=== PATIENT | male | born 1935 | race Caucasian/White ===

== ENCOUNTER 2018-05-11 09:01 | Observation (INO) | payer OTHER ==
[~2018-05-11] VITALS: Ht 172.7 cm; Wt 76.9 kg
[~2018-05-11 09:01] MED LIST: ADVAIR 500/501 EA INH; ATORVASTATIN CA20 MG PO; CICLOPIROX30 GM PO; CLOPIDOGREL75 MG PO; DOXYCYCLINE MO100 M1 PO; DUONEB; FUROSEMIDE20 MG PO; LISINOPRIL10 MG PO; NIFEDIPINE PO; PROAIR HFA INH8.5 GM; TESSALON PERLE100 MG PO
[2018-05-11] MEDS ORDERED: METHYLPREDNISOLONE SOD SUCC 125 MG/2ML VIAL IV STA (10:20)
[2018-05-11] MEDS ORDERED: FAMOTIDINE 20 MG/2 ML VIAL IV STA (10:20)
[2018-05-11 10:28] LABS: BASOPHILS # (AUTO) 0.1 (0.0-0.1); BASOPHILS % 0.5 % (0.0-1.0); EOSINOPHILS # (AUTO) 0.2 (0.0-0.4); EOSINOPHILS % 1.4 % (0.0-6.0); HEMATOCRIT 39.7 % (38.2-49.6); HEMOGLOBIN 13.2 g/dL (14.0-18.0); LYMPHOCYTES # (AUTO) 1.4 (1.0-3.2); LYMPHOCYTES % 13.1 % (18.0-39.1); MEAN CORPUSCULAR HEMOGLOBIN 31.5 pg (28-32); MEAN CORPUSCULAR HGB CONC 33.2 g/dL (31-35); MEAN CORPUSCULAR VOLUME 94.7 fL (81-99); MONOCYTES # (AUTO) 0.7 (0.2-0.8); MONOCYTES % 6.3 % (4.4-11.3); NEUTROPHILS # (AUTO) 8.4 (2.1-6.9); NEUTROPHILS % 76.4 % (38.7-80.0); PLATELET COUNT 302 x10e3/uL (140-360); RED BLOOD COUNT 4.19 x10e6/uL (4.3-5.7)
[2018-05-11] MEDS ORDERED: DIPHENHYDRAMINE HCL INJ 50 MG/ML VIAL IV ONE (10:30)
[2018-05-11 11:08] LABS: ALBUMIN 3.4 g/dL (3.5-5.0); ALBUMIN/GLOBULIN RATIO 0.9 (0.8-2.0); ANION GAP 16.2 mmol/L (8-16); CALCIUM 9.8 mg/dL (8.4-10.2); CREATININE, SERUM 1.53 mg/dL (0.72-1.25); POTASSIUM 4.2 mmol/L (3.5-5.1)
--- NOTE | 2018-05-11 11:43 | Diagnostic Imaging Report ---
EXAMINATION: PA and lateral views of the chest. COMPARISON: Chest CT 05/03/2018 CLINICAL HISTORY: Follow-up right lower lobe pneumonia DISCUSSION: Lines/tubes: None. Lungs: Lungs are well inflated. Increased lucency in the upper lungs, consistent with edematous changes. Coarsening of the interstitium, predominantly noted in the lower lungs and lateral right upper lung, consistent with previously visualized fibrotic changes. No consolidation. Pleura: There is no pleural effusion or pneumothorax. Heart and mediastinum: Cardiomediastinal silhouette is unremarkable. Pulmonary vasculature is normal. Bones and soft tissues: No acute bony abnormalities. Degenerative changes in the thoracic spine IMPRESSION: No consolidation or effusion. Stable emphysematous and fibrotic changes. Signed by: Dr. Jeremias Hagan M.D. on 05/11/2018 11:40 AM
[2018-05-11] MEDS ORDERED: ONDANSETRON HCL INJ 2 MG/ML VIAL IV PRN (12:00)
[2018-05-11] MEDS ORDERED: DIPHENHYDRAMINE HCL INJ 50 MG/ML VIAL IV PRN (12:00)
[2018-05-11] MEDS ORDERED: ALBUTEROL/IPRATROPIUM 3 ML NEB NEB PRN (13:30)
[2018-05-11] MEDS ORDERED: BENZONATATE 100 MG CAP PO PRN (13:30)
[2018-05-11 14:09] VITALS: BP 143/74
[2018-05-11] MEDS: SODIUM CHLORIDE 0.9% 1000ML 1,000 ML IV SCH (14:28)
[2018-05-11] MEDS: METHYLPREDNISOLONE SOD SUCC 125 MG/2ML VIAL IV SCH ×2 (14:32→21:54)
[2018-05-11 14:36] VITALS: BP 143/74
[2018-05-11 14:44] VITALS: BP 143/74
[2018-05-11] MEDS: NYSTATIN SUSPENSION 5 ML UDC PO SCH ×2 (15:15→21:54)
[2018-05-11 16:46] VITALS: BP 179/81
[2018-05-11] MEDS: FAMOTIDINE 20 MG/2 ML VIAL IV SCH (17:10)
[2018-05-11] MEDS: PANTOPRAZOLE 40 MG 10ML VIAL IV SCH (17:10)
--- NOTE | 2018-05-11 17:23 | Diagnostic Imaging Report ---
EXAMINATION: CT scan of the chest without contrast. TECHNIQUE: Spiral CT images of the chest were performed from the lung apices to the level of the adrenal glands. No intravenous contrast was administered per physician's request. Coronal and sagittal reformatted images were obtained. COMPARISON: CT chest 03/02 CLINICAL HISTORY:Shortness of breath, pneumonia DISCUSSION: ABSENCE OF INTRAVENOUS CONTRAST DECREASES SENSITIVITY FOR DETECTION OF FOCAL LESIONS AND VASCULAR PATHOLOGY. LINES/TUBES: None. LUNGS AND AIRWAYS: No interval change in marked bilateral centrilobular and paraseptal emphysematous changes, as well as bilateral cystic changes. Unchanged bilateral subpleural reticulation, architectural distortion and septal thickening, consistent with fibrotic changes. Stable mild central bilateral ectatic changes. Slight improvement in bilateral lower lobe groundglass opacities. No consolidation or pulmonary masses. The airways are clear, without endobronchial lesions. PLEURA: Trace left pleural effusion, which is stable. Interval resolution of previously visualized trace right pleural effusion. HEART AND MEDIASTINUM: Stable 1.4 cm hypodense lesion in the left thyroid lobe (series 2, image 16). Bilateral enlargement. Trace pericardial effusion. Atherosclerotic calcification of the coronary arteries, aortic valves and thoracic aorta. Main pulmonary artery is normal in caliber. LYMPH NODES: No mediastinal, hilar or axillary adenopathy. ABDOMEN: Limited unenhanced views of the upper abdomen show no abnormality within the visualized liver, spleen, pancreas, or kidneys. The right adrenal gland is unremarkable. Thickening of the left adrenal gland, without discrete focal lesions suggesting hyperplasia. BONES AND SOFT TISSUES: Multilevel degenerative disc changes in the thoracic spine. IMPRESSION: 1. No significant interval change in marked bilateral centrilobular emphysematous and paraseptal emphysematous changes. Stable bilateral cystic changes, likely secondary to emphysema. 2. Slight improvement in bilateral lower lobe groundglass opacities. No consolidation or pulmonary masses. 3. Stable trace left pleural effusion. Interval resolution of previously visualized trace right pleural effusion. 4. Stable cardiomegaly Signed by: Dr. Jeremias Hagan M.D. on 05/11/2018 5:19 PM
[2018-05-11 19:00] VITALS: BP 144/79
[2018-05-11 20:00] VITALS: BP 144/79
[2018-05-11] MEDS: ALBUTEROL/IPRATROPIUM 3 ML NEB NEB SCH (20:03)
[2018-05-12 00:40] VITALS: BP 139/82
[2018-05-12] MEDS: ALBUTEROL/IPRATROPIUM 3 ML NEB NEB SCH ×3 (01:40→13:00)
[2018-05-12] MEDS: SODIUM CHLORIDE 0.9% 1000ML 1,000 ML IV SCH (01:52)
[2018-05-12 03:10] VITALS: BP 138/74
[2018-05-12 05:14] LABS: BASOPHILS % 0.2 % (0.0-1.0); HEMATOCRIT 37.8 % (38.2-49.6); HEMOGLOBIN 12.6 g/dL (14.0-18.0); LYMPHOCYTES # (AUTO) 0.9 (1.0-3.2); LYMPHOCYTES % 9.6 % (18.0-39.1); MEAN CORPUSCULAR HEMOGLOBIN 31.5 pg (28-32); MEAN CORPUSCULAR HGB CONC 33.3 g/dL (31-35); MEAN CORPUSCULAR VOLUME 94.5 fL (81-99); MONOCYTES # (AUTO) 0.2 (0.2-0.8); MONOCYTES % 1.9 % (4.4-11.3); NEUTROPHILS # (AUTO) 8.3 (2.1-6.9); NEUTROPHILS % 86.8 % (38.7-80.0); PLATELET COUNT 276 x10e3/uL (140-360); RED CELL DISTRIBUTION WIDTH 13.2 % (11.7-14.4)
[2018-05-12 05:31] LABS: ANION GAP 15.4 mmol/L (8-16); CALCIUM 9.1 mg/dL (8.4-10.2); CREATININE, SERUM 1.33 mg/dL (0.72-1.25); POTASSIUM 4.4 mmol/L (3.5-5.1)
[2018-05-12] MEDS: NYSTATIN SUSPENSION 5 ML UDC PO SCH ×2 (05:59→15:00)
[2018-05-12] MEDS: METHYLPREDNISOLONE SOD SUCC 125 MG/2ML VIAL IV SCH ×2 (05:59→15:00)
[2018-05-12 08:11] VITALS: BP 157/72
[2018-05-12 08:31] VITALS: BP 157/72
[2018-05-12] MEDS: FAMOTIDINE 20 MG/2 ML VIAL IV SCH ×2 (09:00→16:19)
[2018-05-12] MEDS: PANTOPRAZOLE 40 MG 10ML VIAL IV SCH ×2 (09:00→16:19)
[2018-05-12] MEDS ORDERED: BENZONATATE 100 MG CAP PO PRN (11:00)
[2018-05-12] MEDS ORDERED: DUONEB PRN (11:00)
[2018-05-12 11:15] VITALS: BP 143/65
--- NOTE | 2018-05-12 14:35 | Operative Report ---
DATE OF PROCEDURE: May 12, 2018 PROCEDURE PERFORMED: Esophagogastroduodenoscopy with esophageal dilatation. INDICATIONS FOR EGD: Dysphagia to solids. MEDICATION: Patient was done under MAC. Please see anesthesiologist's note. PROCEDURE: With the patient in the left lateral decubitus position, the flexible fiberoptic Olympus gastroscope was introduced into the esophagus under direct visualization without any difficulty. There was some patchy erythema noted in the distal esophagus. An esophageal stricture was noted at the GE junction, and that was traversed with ease with the scope after dilating the stricture to size 54-Bruneian Frank. There was a small fixed hiatal hernia. The mucosa overlying the antrum and the body revealed some diffuse erythema and moderate edema, and biopsies were obtained and sent to stain for H. pylori. Pylorus appeared to be of normal contour and shape. It was intubated with ease. The scope was advanced all the way to the 2nd portion of the duodenum. The scope was then withdrawn slowly. Mucosa overlying the proximal 2nd portion and duodenal bulb grossly appeared to be within normal limits. The scope was then withdrawn back retroflexed. Mucosa overlying the fundus appeared to be within normal limits. The previously described hiatal hernia was also noted in the retroflexed position. The scope was then straightened out. It was subsequently withdrawn. Patient tolerated the procedure well. IMPRESSION 1. Distal esophagitis, mild. 2. Esophageal stricture at gastroesophageal junction dilated to size 54-Bruneian Frank. 3. Small hiatal hernia. 4. Gastritis, biopsied. Biopsies sent to stain for Helicobacter pylori. PLAN: Follow up histology. Continue PPI therapy. Start GI soft diet. Job#: [id number] RI cc:MD MT BARKLEY MD
[2018-05-12] MEDS ORDERED: LIDOCAINE HCL 2% LOCAL INJ 5 ML SDV VIAL INJ ONE (15:14)
[2018-05-12] MEDS ORDERED: KETAMINE HCL INJ 50 MG/ML 10 ML VIAL ONE (15:14)
[2018-05-12] MEDS ORDERED: PROPOFOL IV EMULSION 10 MG/ML 20 ML VIAL ONE (15:14)
[2018-05-12 15:44] VITALS: BP 139/65
[2018-05-12] MEDS ORDERED: PREDNISONE5 MG PO (17:58)
[2018-05-12] MEDS ORDERED: PEPCID20 MG PO (17:58)
[2018-05-12] MEDS ORDERED: VENTOLIN HFA18 GM (17:59)
[2018-05-12] MEDS ORDERED: SALMETEROL/FLUTICASONE 500/50 INH SCH (19:00)
[2018-05-13] MEDS ORDERED: ATORVASTATIN 20 MG TAB PO SCH (09:00)
[2018-05-13] MEDS ORDERED: CLOPIDOGREL BISULFATE 75 MG TAB PO SCH (09:00)
[2018-05-13] MEDS ORDERED: FUROSEMIDE 20 MG TAB PO SCH (09:00)
[2018-05-13] MEDS ORDERED: NIFEDIPINE CR 30 MG TAB PO SCH (09:00)
== END 2018-05-12 18:29 | disposition home or self-care (01) ==
LOC: ER 09:01 → ERHOLD 12:23 → IMCU 14:01
PROVIDERS: ADMIT Internal Medicine; ATTEND Internal Medicine
DX: K22.2 Esophageal obstruction (principal); T78.3XXA Angioneurotic edema, initial encounter; R13.14 Dysphagia, pharyngoesophageal phase; J44.9 Chronic obstructive pulmonary disease, unspecified; I10 Essential (primary) hypertension; E78.5 Hyperlipidemia, unspecified; Z87.891 Personal history of nicotine dependence; Z99.81 Dependence on supplemental oxygen; I69.354 Hemiplegia and hemiparesis following cerebral infarction affecting left non-dominant side; K21.0 Gastro-esophageal reflux disease with esophagitis; K44.9 Diaphragmatic hernia without obstruction or gangrene; K29.70 Gastritis, unspecified, without bleeding
CPT/HCPCS: 36415 ×2; 43239; 43249; 71046; 71250; 80048; 80053; 85025 ×2; 88305; 94640 ×3; 99284; G0378 ×2; J1200; J2001; J2930 ×2; J7030 ×2; 43450; 88312

== ENCOUNTER → 2018-08-02 | Outpatient (CLI) | payer OTHER ==
[~2018-08-02] MED LIST changes: +PEPCID20 MG PO; +PREDNISONE5 MG PO; +VENTOLIN HFA18 GM
--- NOTE | 2018-08-02 10:03 | Diagnostic Imaging Report ---
PROCEDURE: X-RAY CHEST, TWO VIEWS COMPARISON: 2 view chest 05/11/2018, CT chest without contrast 05/11/2018. INDICATIONS: COPD FINDINGS: Advanced upper lobe predominant emphysematous changes are again noted seen to better advantage on comparison CT. Scattered foci of fibrosis in the periphery of the right upper lobe and bilateral lower lobes are grossly unchanged . No superimposed airspace consolidation. No pleural effusion or pneumothorax. Stable cardiomediastinal contour with tortuosity and atherosclerotic calcification of the thoracic aorta. Normal heart size and pulmonary vasculature. Regional skeletal structures are grossly intact. CONCLUSION: No acute cardiopulmonary abnormality. Stable findings of COPD with superimposed fibrosis. Dictated by: Ashwin Kang M.D. on 08/02/2018 at 10:13 Electronically approved by: Ashwin Kang M.D. on 08/02/2018 at 10:13
--- NOTE | 2018-08-18 16:09 | History and Physical ---
CHIEF COMPLAINT: Fever, altered mental status, pneumonia. HISTORY: The patient is a pleasant 82-year-old male who came to the hospital with hypoxia. The patient is complaining of increasing difficulty breathing and wheezing. Patient was confused. He also had fever as well. According to his daughter, temperature was up to 102 to 103. Patient was admitted for treatment. PAST MEDICAL HISTORY: Including hypertension, history of skin cancer removed, carotid endarterectomy. SOCIAL HISTORY: Patient does not smoke or use alcohol. No illegal drugs. ALLERGIES: NO KNOWN ALLERGY. HOME MEDICATIONS: List is reviewed. REVIEW OF SYSTEMS: Unable to obtain. Patient is confused. PHYSICAL EXAMINATION VITAL SIGNS: Temperature is 101, blood pressure 110/62, pulse rate 80, respirations 18. GENERAL: The patient is not in acute distress. He is awake. HEENT: Normocephalic, atraumatic, anicteric. NECK: Supple grossly. PULMONARY: Diminished breath sounds bilaterally with coarseness. CARDIOVASCULAR: Tachycardia. ABDOMEN: Soft and unremarkable. EXTREMITIES: No cyanosis or edema. NEUROLOGIC: Confusion. LABORATORY: Sodium is 138, potassium 3.6, chloride 110, BUN 20, creatinine 1.3, glucose was 106. WBC is 21,000. IMPRESSION 1. Altered mental status. 2. Acute exacerbation of chronic obstructive pulmonary disease. 3. Cellulitis of the upper extremity, resolved. 4. Chronic debility. 5. Emphysema and fever. PLAN: Continue with IV antibiotics. Consultation with Dr. Salas and Dr. Mann. Resume some home medications. Check lab workup. We will monitor the patient closely on admission. Job#: [id number]
== END ==
LOC: RAD 09:37
PROVIDERS: ATTEND Internal Medicine Pulmonary Disease
DX: J44.9 Chronic obstructive pulmonary disease, unspecified (principal)
CPT/HCPCS: 71046

== ENCOUNTER 2019-01-12 10:09 | Observation (INO) | payer OTHER ==
--- NOTE | 2019-01-11 19:30 | NUR ---
Walking rounds done. Patient resting in bed, A&Ox4, respirations even & unlabored, no distress noted. Patient states he ambulates with walker, instructed to call for assistance when needing to get out of bed, call light within reach. Tele box in place. IV fluids running @ 100cc/hr. Reminded patient he is on clear liquid diet and needs to be NPO after midnight for scheduled procedure tomorrow, patient voices understanding.
[~2019-01-12] VITALS: Ht 172.7 cm; Wt 82.6 kg
[~2019-01-12 10:09] MED LIST changes: -VENTOLIN HFA18 GM; +VENTOLIN HFA18 GM INH
--- OUTSIDE RECORDS SUMMARY | 2019-01-12 10:11 | XMS REPORT ---
Author Author [facility] Address Unknown Phone Unavailable Care Team Providers Care Dental Floss Packer Name Role Phone VINCENT ASTUDILLO Unavailable Unavailable BAL RANKIN Unavailable Unavailable Problems This patient has no known problems. Allergies, Adverse Reactions, Alerts This patient has no known allergies or adverse reactions. Medications This patient has no known medications. Results Test Description Test Time Test Comments Text Results Atomic Results Result Comments CHEST 2 VIEWS 2018-08-02 10:13:00 [place] [address] Patient Name: DEMOND ORTIZ MR #: [id number] : 1935 Age/Sex: 83/M Req #: [id number] Adm Physician: Ordered by: VINCENT ASTUDILLO MD Report #: [id number] Location: RAD Room/Bed: Procedure: [id number] DX/CHEST 2 VIEWS Exam Date: Exam Time: REPORT STATUS: Signed PROCEDURE: X-RAY CHEST, TWO VIEWS COMPARISON: 2 view chest 05/11/2018, CT chest without contrast 05/11/2018. INDICATIONS: COPD FINDINGS: Advanced upper lobe predominant emphysematous changes are again noted seen to better advantage on comparison CT. Scattered foci of fibrosis in the periphery of the right upper lobe and bilateral lower lobes are grossly unchanged . No superimposed airspace consolidation. No pleural effusion or pneumothorax. Stable cardiomediastinal contour with tortuosity and atherosclerotic calcification of the thoracic aorta. Normal heart size and pulmonary vasculature. Regional skeletal structures are grossly intact. CONCLUSION: No acute cardiopulmonary abnormality. Stable findings of COPD with superimposed fibrosis. Dictated by: Kyle Smith M.D. on 08/02/2018 at 10:13 Electronically approved by: Kyle Smith M.D. on 08/02/2018 at 10:13 Dictated By: KYLE SMITH MD 1013 Transcribed By: JABARI on 08/02/18 1013 COPY TO: VINCENT ASTUDILLO MD CT CHEST WO 2018-05-11 17:12:00 [place] [address] Patient Name: DEMOND ORTIZ MR #: [id number] : 1935 Age/Sex: 82/M Req #: [id number] Adm Physician: BAL RANKIN MD Ordered by: BAL RANKIN MD Report #: [id number] Location: [facility] Room/Bed: [place] [address] Procedure: [id number] CT/CT CHEST WO Exam Date: 05/11/18 Exam Time: 1558 REPORT STATUS: Signed EXAMINATION: CT scan of the chest without contrast. TECHNIQUE: Spiral CT images of the chest were performed from the lung apices to the level of the adrenal glands. No intravenous contrast was administered per physician's request. Coronal and sagittal reformatted images were obtained. COMPARISON: CT chest 03/02 CLINICAL HISTORY:Shortness of breath, pneumonia DISCUSSION: ABSENCE OF INTRAVENOUS CONTRAST DECREASES SENSITIVITY FOR DETECTION OF FOCAL LESIONS AND VASCULAR PATHOLOGY. LINES/TUBES: None. LUNGS AND AIRWAYS: No interval change in marked bilateral centrilobular and paraseptal emphysematous changes, as well as bilateral cystic changes. Unchanged bilateral subpleural reticulation, architectural distortion and septal thickening, consistent with fibrotic changes. Stable mild central bilateral ectatic changes. Slight improvement in bilateral lower lobe groundglass opacities. No consolidation or pulmonary masses. The airways are clear, without endobronchial lesions. PLEURA: Trace left pleural effusion, which is stable. Interval resolution of previously visualized trace right pleural effusion. HEART AND MEDIASTINUM: Stable 1.4 cm hypodense lesion in the left thyroid lobe (series 2, image 16). Bilateral enlargement. Trace pericardial effusion. Atherosclerotic calcification of the coronary arteries, aortic valves and thoracic aorta. Main pulmonary artery is normal in caliber. LYMPH NODES: No mediastinal, hilar or axillary adenopathy. ABDOMEN: Limited unenhanced views of the upper abdomen show no abnormality within the visualized liver, spleen, pancreas, or kidneys. The right adrenal gland is unremarkable. Thickening of the left adrenal gland, without discrete focal lesions suggesting hyperplasia. BONES AND SOFT TISSUES: Multilevel degenerative disc changes in the thoracic spine. IMPRESSION: 1. No significant interval change in marked bilateral centrilobular emphysematous and paraseptal emphysematous changes. Stable bilateral cystic changes, likely secondary to emphysema. 2. Slight improvement in bilateral lower lobe groundglass opacities. No consolidation or pulmonary masses. 3. Stable trace left pleural effusion. Interval resolution of previously visualized trace right pleural effusion. 4. Stable cardiomegaly Signed by: Dr. Jeremias Hagan M.D. on 05/11/2018 5:19 PM Dictated By: JEREMIAS HAGAN MD 18 Transcribed By: LUCI on 05/11/181718 COPY TO: BAL RANKIN MD CHEST 2 VIEWS 2018-05-11 11:36:00 [place] [address] Patient Name: DEMOND ORTIZ MR #: [id number] : 1935 Age/Sex: 82/M Req #: [id number] Adm Physician: Ordered by: TIMUR MORENO MD Report #: [id number] Location: ER Room/Bed: Procedure: [id number] DX/CHEST 2 VIEWS Exam Date: 05/11/18 Exam Time: 1053 REPORT STATUS: Signed EXAMINATION: PA and lateral views of the chest. COMPARISON: Chest CT 05/03/2018 CLINICAL HISTORY: Follow-up right lower lobe pneumonia DISCUSSION: Lines/tubes: None. Lungs: Lungs are well inflated. Increased lucency in the upper lungs, consistent with edematous changes. Coarsening of the interstitium, predominantly noted in the lower lungs and lateral right upper lung, consistent with previously visualized fibrotic changes. No consolidation. Pleura: There is no pleural effusion or pneumothorax. Heart and mediastinum: Cardiomediastinal silhouette is unremarkable. Pulmonary vasculature is normal. Bones and soft tissues: No acute bony abnormalities. Degenerative changes in the thoracic spine IMPRESSION: No consolidation or effusion. Stable emphysematous and fibrotic changes. Signed by: Dr. Jeremias Hagan M.D. on 05/11/2018 11:40 AM Dictated By: JEREMIAS HAGAN MD 1140 Transcribed By: LUCI on 05/11/18 1140 COPY TO: TIMUR MORENO MD US EXTREMITY CABAN NON-VAS 2018-05-04 14:22:00 [place] [address] Patient Name: DEMOND ORTIZ MR #: [id number] : 1935 Age/Sex: 82/M Req #: [id number] Adm Physician: BAL RANKIN MD Ordered by: FABIANA RANDHAWA MD Report #: [id number] Location: MED/SURG2 Room/Bed: [facility] Procedure: US/US EXTREMITY CABAN NON-VAS Exam Date: 05/04/18 Exam Time: 1228 REPORT STATUS: Signed EXAM: US EXTREMITY CABAN NON-VAS INDICATION: COMPARISON: None TECHNIQUE: Transverse and sagittal images were performed of the right elbow soft tissues. FINDINGS: Extensive soft tissue edema surrounding the right elbow in the region of pain with mildly increased vascularity. No abscess. IMPRESSION: Extensive soft tissue edema surrounding the right elbow. Mild increased vascularity may relate to cellulitis. Correlate with physical exam. No abscess. Signed by: Dr. Milka Rodriguez M.D. on 05/04/2018 2:24 PM Dictated By: MILKA RODRIGUEZ MD 1424 Transcribed By: LUCI on 05/04/18 1424 COPY TO: FABIANA RANDHAWA MD CT CHEST WO 2018-05-03 18:51:00 [place] [address] Patient Name: DEMOND ORTIZ MR #: [id number] : 1935 Age/Sex: 82/M Req #: [id number] [facility] Physician: BAL RANKIN MD Ordered by: BAL RANKIN MD Report #: [id number] Location: MED/SURG2 Room/Bed: [facility] Procedure: [id number] CT/CT CHEST WO Exam Date: 05/03/18 Exam Time: 1821 REPORT STATUS: Signed EXAM: CT Chest WITHOUT contrast 05/03/2018 5:01 PM INDICATION: COMPARISON: Chest radiograph 05/03/2018 and 05/01/2018 TECHNIQUE: Chest was scanned utilizing a multidetector helical scanner from the lung apex through the level of the adrenal glands without administration of IV contrast. Absence of intravenous contrast decreases sensitivity for detection of lymphadenopathy and vascular pathology. Coronal and sagittal reformations were obtained. Routine protocol was performed. IV CONTRAST: None COMPLICATIONS: None RADIATION DOSE: Total DLP: 540.5 mGy*cm Estimated effective dose: (DLP x 0.015 x size factor) mSv CTDIvol has been reviewed. It is below the limits set by the Radiation Protocol Committee (RPC). FINDINGS: LINES/ TUBES: None. LUNGS AND AIRWAYS: Advanced bilateral centrilobular and paraseptal emphysema with multiple cystic changes. Diffuse subpleural reticulation of the lungs with septal thickening and architectural distortion consistent with nonspecific pattern of pulmonary fibrosis. No consolidations or suspicious pulmonary nodules. Mild central bilateral bronchiectasis. Mild groundglass opacities in both lung bases. PLEURA: Small bilateral low-attenuation pleural effusions with fluid tracking into the fissures. No pneumothorax. HEART AND MEDIASTINUM: Heterogeneous appearance of the thyroid gland may be due to small nodules. Multiple subcentimeter noncalcified lymph nodes with the largest in the AP window measuring 0.8 cm on series 2, image 46. Biatrial enlargement. Trace pericardial effusion. Diffuse coronary artery calcifications. The thoracic aorta is normal in caliber and associated with severe atherosclerotic calcifications. There is a double contour of the descending thoracic aorta better seen on series 2, image 89 which may represent due to complex plaque with calcification of the intima versus chronic dissection. Small hiatal hernia. The main pulmonary artery normal in caliber. The right and left pulmonary arteries are prominent. UPPER ABDOMEN: Unremarkable. BONES: Mild multilevel degenerative changes of the thoracic spine. SOFT TISSUES: Unremarkable. IMPRESSION: 1. Extensive bilateral emphysema with multiple cystic changes. These cysts may relate to emphysema or superimposed Langerhans cell histiocytosis. 2. Bilateral nonspecific pattern of pulmonary fibrosis. 3. No lobar consolidations or centrilobular nodules to suggest active infection. 4. Extensive calcifications of the thoracic aorta with complex plaque versus chronic dissection in the descending thoracic segment. Recommend nonemergent CTA chest for further evaluation. Signed by: Dr. Milka Rodriguez M.D. on 05/03/2018 7:09 PM Dictated By: MILKA RODRIGUEZ MD 08 Transcribed By: LUCI on 05/03/181908 COPY TO: BAL RANKIN MD CHEST SINGLE (PORTABLE) 2018-05-03 08:07:00 [place] [address] Patient Name: DEMOND ORTIZ MR #: [id number] : 1935 Age/Sex: 82/M Req #: [id number] Adm Physician: BAL RANKIN MD Ordered by: TIMUR MOERNO MD Report #: [id number] Location: [facility] Room/Bed: [facility] Procedure: [id number] DX/CHEST SINGLE (PORTABLE) Exam Date: 05/03/18 Exam Time: 0650 REPORT STATUS: Signed EXAMINATION: CHEST SINGLE (PORTABLE) INDICATION: Fever. Pneumonia. COMPARISON: May 01, 2018 FINDINGS: LINES/TUBES: None LUNGS: Peripheral interstitial thickening with more focal reticulonodular changes in the right upper lung. PLEURA: No effusions or pneumothorax. HEART AND MEDIASTINUM: Normal size and contour. BONES AND SOFT TISSUES: No acute findings. IMPRESSION: Essentially no change when compared with the prior exam. Peripheral interstitial thickening suggests interstitial lung disease or emphysematous changes with age related changes. More focal reticulonodular changes in the right upper lung could represent superimposed infection. Please correlate with patient's symptoms. Signed by: Dr. Anabella Yu M.D. on 05/03/2018 8:08 AM Dictated By: ANABELLA YU MD, MD 7 Transcribed By: LUCI on 05/03/18807 COPY TO: TIMUR MORENO MD CHEST 2 VIEWS 2018-05-01 21:30:00 [facility] [address] [place] [address] Patient Name: DEMOND ORTIZ MR #: [id number] : 1935 Age/Sex: 82/M Req #: [id number] Adm Physician: Ordered by: TIMUR MORENO MD Report #: [id number] Location: ER Room/Bed: Procedure: [id number] DX/CHEST 2 VIEWS Exam Date: 05/01/18 Exam Time: 2100 REPORT STATUS: Signed EXAM: CHEST 2 VIEWS, PA and lateral INDICATION: Fever COMPARISON: None FINDINGS: LINES/TUBES: None LUNGS: Peripheral interstitial thickening with more focal reticulonodular changes in the right upper lung. PLEURA: No effusions or pneumothorax. HEART AND MEDIASTINUM: Normal size and contour. BONES AND SOFT TISSUES: No acute findings. IMPRESSION: Peripheral interstitial thickening suggests interstitial lung disease or emphysematous changes with age related changes. More focal reticulonodular changes in the right upper lung could represent superimposed infection. Please correlate with patient's symptoms. Signed by: Dr. Zandra Becerril M.D. on 05/01/2018 9:32 PM Dictated By: ZANDRA BECERRIL MD 31 Transcribed By: LUCI on 05/01/182131 COPY TO: TIMUR MORENO MD CT BRAIN WO 2018-05-01 21:26:00 [facility] [address] [place] [address] Patient Name: DEMOND ORTIZ MR #: [id number] : 1935 Age/Sex: 82/M [facility] #: [id number] Req #: [id number] [facility] Physician: Ordered by: TIMUR MORENO MD Report #: [id number] Location: ER Room/Bed: Procedure: [id number] CT/CT BRAIN WO Exam Date: 05/01/18 Exam Time: 2100 REPORT STATUS: Signed EXAMINATION: Head CT without contrast. HISTORY:Confusion. COMPARISON:None. TECHNIQUE: Multidetector axial images were obtained from the foramen magnum to the vertex without contrast. The images were reconstructed using brain and bone algorithms. Thin section brain images were reformatted into coronal and sagittal planes. Dose modulation, iterative reconstruction, and/or weight based adjustment of the mA/kV was utilized to reduce the radiation dose to as low as reasonably achievable. Intravenous contrast: None IMAGE QUALITY: Acceptable. FINDINGS: Skull/scalp: No lytic or blastic. lesions. No surgical changes. Parenchyma: Cortical- based hypodensity in right precentral gyrus with regional volume loss represents chronic encephalomalacia from prior vascular insult. Nonspecific bilateral frontoparietal patchy white matter hypodensity are likely related to small vessel ischemic changes. Age indeterminate possible chronic lacunar infarct in bilateral caudate head and left subinsular region. No acute hemorrhage or mass. Arteries: Atherosclerotic calcification in bilateral carotid siphon. Dural sinuses: No abnormal density suggestive of thrombosis. Ventricles: No hydrocephalus or displacement. Extra- axial spaces: No abnormal density. Brain volume: Generalized age-related cerebral volume loss. Craniocervical junction: No mass, Chiari mal formation, or basilar invagination. Sella: No mass. Paranasal/mastoid sinuses: Imaged portions unremarkable. IMPRESSION: 1. No acute intracranial abnormality, particularly no acute hemorrhage or acute major vascular territorial infarct. 2. 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 Age indeterminate possible chronic lacunar infarct in bilateral caudate head and left subinsular region. 3. Mild supratentorial white matter microvascular ischemic changes. 4. Generalized age-related cerebral volume loss. Signed by: Dr. Aster Arthur M.D. on 05/01/2018 9:31 PM Dictated By: ASTER ARTHUR MD 30 Transcribed By: LUCI on 05/01/182130 COPY TO: TIMUR MORENO MD
--- OUTSIDE RECORDS SUMMARY | 2019-01-12 10:12 | XMS REPORT ---
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 Active Not available atorvastatin 20 mg tablet Active Not available Boostrix Tdap 2.5 Lf unit-8 mcg-5 Lf/0.5 mL intramuscular syringe Completed 08/10/2017 ciclopirox 0.77 % topical gel Active Not available clopidogrel 75 mg tablet Active Not available furosemide 20 mg tablet Completed 08/23/2017 furosemide 40 mg tablet Completed 08/13/2017 Klor-Con Sprinkle 10 mEq capsule,extended release Completed 02/09/2017 lisinopril 10 mg tablet Active Not available lisinopril 5 mg tablet Completed 08/23/2017 Men 50 Plus Multivitamin TAKE 1 A DAY Active Not available permethrin 5 % topical cream Completed 08/10/2017 V-R Tvuxkwa-Pacvvbabp-Fizl 1000 mg-400 mg-15 mg tablet Take 1 tablet every day by oral route for 90 days. Active Not available Vitamin C 1,000 mg tablet Take 1 tablet every day by oral route for 90 days. Active Not available Vitamin D3 2,000 unit capsule Take 1 capsule every day by oral route for 90 days. Active Not available Zostavax (PF) 19,400 unit/0.65 mL subcutaneous suspension Completed 12/05/2017 Problems Name Status Onset Date Source Type 2 Diabetes Mellitus without Complication Unknown 05/11/2017 Diabetic Complication Active 05/11/2017 Mixed Hyperlipidemia Active 05/11/2017 Hyperlipidemia Unknown 05/11/2017 Benign Essential Hypertension Unknown 05/11/2017 Benign Hypertensive Renal Disease Unknown 05/11/2017 Hypertensive Renal Disease Active 05/11/2017 Chronic Kidney Disease Stage 3 Active 05/11/2017 Chronic Kidney Disease Due to Type 2 Diabetes Mellitus Active 05/11/2017 Onychomycosis of Toenails Unknown 08/10/2017 Type 2 Diabetes Mellitus Active 08/10/2017 Peripheral Circulatory Disorder Associated with Type 2 Diabetes Mellitus Active 08/10/2017 Carotid Artery Occlusion Unknown 08/10/2017 Carotid Artery Occlusion Active 08/10/2017 Peripheral Venous Insufficiency Active 08/10/2017 Foot Callus Active 08/10/2017 Peripheral Edema Active 08/10/2017 History of Malignant Melanoma Active 08/10/2017 History of Cerebrovascular Accident Active 08/10/2017 History of Cerebrovascular Accident with Residual Deficit Active 08/10/2017 Hyperkalemia Active 08/13/2017 Allergic Rhinitis Unknown 08/23/2017 History of Angioplasty of Carotid Artery Active 08/23/2017 Procedures Date Name Performed by Hernia Repair Information not available Tonsillectomy Information not available 08/10/2017 US, Duplex, Carotid Artery [facility] (US Imaging) [address] [place] [address] (Work Place) Lab Results Date Name Specimen Result Interpretation Description Value Range Status Address 09/20/2017 CMP, Serum or Plasma Normal Glucose 98 mg/dL 65-99 mg/dL Final [facility] Laboratory: [address] High Urea Nitrogen (BUN) 34 mg/dL 7-25 mg/dL Final [facility] Laboratory: [address] High Creatinine 1.70 mg/dL 0.70-1.11 mg/dL Final [facility] Laboratory: [address] Low eGFR Non-afr. Wallisian 36 mL/min/1.73m2 > or=60 mL/min/1.73m2 Final [facility] Laboratory: [address] Low eGFR 42 mL/min/1.73m2 > or=60 mL/min/1.73m2 Final [facility] Laboratory: [address] Normal BUN/creatinine Ratio 20 (calc) 6-22 (calc) Final [facility]: [address] Normal Sodium 139 mmol/L 135-146 mmol/L Final [facility]: [address] Normal Potassium 4.7 mmol/L 3.5-5.3 mmol/L Final [facility]: [address] [place] [address] Normal Chloride 104 mmol/L 98-110 mmol/L Final [facility]: [address] Normal Carbon Dioxide 24 mmol/L 20-31 mmol/L Final [facility]: [address] Normal Calcium 9.4 mg/dL 8.6-10.3 mg/dL Final [facility]: [address] Normal Protein, Total 7.1 g/dL 6.1-8.1 g/dL Final [facility]: [address] Normal Albumin 4.4 g/dL 3.6-5.1 g/dL Final [facility]: [address] Normal Globulin 2.7 g/dL (calc) 1.9-3.7 g/dL (calc) Final [facility]: [address] Normal Albumin/globulin Ratio 1.6 (calc) 1.0-2.5 (calc) Final [facility]: [address] Normal Bilirubin, Total 0.9 mg/dL 0.2-1.2 mg/dL Final [facility]: [address] Normal Alkaline Phosphatase 48 U/L 40-115 U/L Final [facility]: [address] Normal Ast 17 U/L 10-35 U/L Final [facility]: [address] Normal Alt 18 U/L 9-46 U/L Final [facility]: [address] 08/23/2017 CMP, Serum or Plasma Alt 23 U/L 0-55 U/L Final [facility]: [address] Ast 21 U/L 5-34 U/L Final [facility]: [address] High Bun 41.2 mg/dL 8.4-25.7 mg/dL Final [facility]: [address] Alk Phos 46 unit/L 40-150 unit/L Final [facility]: [address] [place] [address], [place] Glucose 87 mg/dL 70-99 mg/dL Final [facility]: [address] [place] [address] Albumin 4.2 g/dL 3.5-5.0 g/dL Final [facility]: [address] [place] [address] High Creatinine 1.68 mg/dL 0.72-1.25 mg/dL Final [facility]: [address] Low eGFR Non- 39 mL/min/1.73m2 >60 mL/min/1.73m2 Final [facility]: [address] Total Bilirubin 0.8 mg/dL 0.2-1.2 mg/dL Final [facility]: [address] [place] [address] Low eGFR - 47 mL/min/1.73m2 >60 mL/min/1.73m2 Final [facility]: [address] Sodium 142 mEq/L 136-145 mEq/L Final [facility]: [address] Potassium 4.6 mEq/L 3.5-5.1 mEq/L Final [facility]: [address] High Chloride 108 mmol/L 98-107 mmol/L Final [facility]: [address] Total Protein 7.3 g/dL 6.4-8.3 g/dL Final [facility]: [address] Calcium 9.3 mg/dL 8.8-10.0 mg/dL Final [facility]: [address] Co2 23.7 mmol/L 23.0-31.0 mmol/L Final [facility]: [address] Anion Gap 10 calc Final [facility]: [address] [facility] 08/10/2017 CMP, Serum or Plasma Alt 18 U/L 0-55 U/L Final [facility]: [address] Ast 20 U/L 5-34 U/L Final [facility]: [address] [place] High Bun 41.7 mg/dL 8.4-25.7 mg/dL Final [facility]: [address] [place] Alk Phos 47 unit/L 40-150 unit/L Final [facility]: [address] [place] High Glucose 107 mg/dL 70-99 mg/dL Final [facility]: [address] [place] Albumin 4.3 g/dL 3.5-5.0 g/dL Final [facility]: [address] [place] High Creatinine 2.14 mg/dL 0.72-1.25 mg/dL Final [facility]: [address] [place] Low eGFR Non- 30 mL/min/1.73m2 >60 mL/min/1.73m2 Final [facility]: [address] [place] Total Bilirubin 1.0 mg/dL 0.2-1.2 mg/dL Final [facility]: [address] [facility] Low eGFR - 36 mL/min/1.73m2 >60 mL/min/1.73m2 Final [facility]: [address] [place] Sodium 142 mEq/L 136-145 mEq/L Final [facility]: [address] [facility] High Potassium 5.6 mEq/L 3.5-5.1 mEq/L Final [facility]: [address] [facility] Chloride 105 mmol/L 98-107 mmol/L Final [facility]: [address] [facility] Total Protein 7.4 g/dL 6.4-8.3 g/dL Final [facility]: [address] [facility] Calcium 9.9 mg/dL 8.8-10.0 mg/dL Final [facility]: [address] Brian [facility] Co2 27.2 mmol/L 23.0-31.0 mmol/L Final [facility]: [address] [facility] Anion Gap 10 calc Final [facility]: [address] [facility] 08/10/2017 HbA1C (Hemoglobin a1C), Blood High A1C W/eag 6.6 % 1.0-5.7 % Final [facility] Laboratory: [address] [place] [address] Average Blood Glucose 143 mg/dL Final [facility]: [address], [place] 05/30/2017 Potassium, Serum Potassium 4.4 mEq/L 3.5-5.1 mEq/L Final [facility] Laboratory: [address] Brian Ysabel, [place] 05/17/2017 Potassium, Serum High Potassium 5.4 mEq/L 3.5-5.1 mEq/L Final [facility]: [address] [place], [place] 05/11/2017 BMP, Serum or Plasma High Bun 47.0 mg/dL 8.4-25.7 mg/dL Final [facility]: [address] [place] [address] Glucose 88 mg/dL 70-99 mg/dL Final [facility]: [address] High Creatinine 1.97 mg/dL 0.72-1.25 mg/dL Final [facility]: [address] Low eGFR Non- 33 mL/min/1.73m2 >60 mL/min/1.73m2 Final [facility]: [address] Low eGFR - 39 mL/min/1.73m2 >60 mL/min/1.73m2 Final [facility]: [address] [place] [address] Sodium 143 mEq/L 136-145 mEq/L Final [facility]: [address] High Potassium 5.3 mEq/L 3.5-5.1 mEq/L Final [facility]: [address] High Chloride 108 mmol/L 98-107 mmol/L Final [facility]: [address] Calcium 9.5 mg/dL 8.8-10.0 mg/dL Final [facility]: [address] Co2 24.4 mmol/L 23.0-31.0 mmol/L Final [facility] Laboratory: [address] Anion Gap 11 calc Final [facility]: [address] [place] [address] 05/11/2017 PSA, Serum or Plasma PSA, Total 1.73 NG/mL <4.00 NG/mL Final [facility] Laboratory: [address] [place] [address], [place] 05/11/2017 HbA1C (Hemoglobin a1C), Blood High A1C W/eag 6.4 % 1.0-5.7 % Final [facility] Laboratory: [address] [place] [address], [place] Average Blood Glucose 137 mg/dL Final [facility] Laboratory: [address] [place] [address], [place] 05/11/2017 Lipid Panel, Serum Low Hdl 30 mg/dL 40-60 mg/dL Final [facility] Laboratory: [address] [place] [address], [place] High Triglyceride 186 mg/dL 0-149 mg/dL Final [facility]: [address] [place] [address], [place] VLDL Calc. 37 mg/dL Final [facility]: [address] cholesterol/HDL Ratio 5 mg/dL Final [facility] Laboratory: [address] [place] [address], [place] non-HDL Cholesterol Calc. 106 mg/dL 0-160 mg/dL Final [facility]: [address] [place] [address], [place] Cholesterol 136 mg/dL 0-199 mg/dL Final [facility]: [address] [place] [address], [place] LDL Calc. 69 mg/dL 0-130 mg/dL Final [facility] Laboratory: [address] Glucose, Fingerstick, Blood Blood Glucose: mg/dl 113 [facility]: [address] Glucose, Fingerstick, Blood Blood Glucose: mg/dl 183 [facility]: [address] Glucose, Fingerstick, Blood Blood Glucose: mg/dl 99 [facility]: [address] Glucose, Fingerstick, Blood Blood Glucose: mg/dl 107 [facility]: [address] Glucose, Fingerstick, Blood Blood Glucose: mg/dl 147 [facility]: [address] Glucose, Fingerstick, Blood Blood capillary Blood Glucose: mg/dl 112 [facility]: [address] Past Encounters 12/05/2017 Type 2 Diabetes Mellitus; Hypertensive Renal Disease; Chronic Kidney Disease Stage 3; Immunization Refused; Dyspnea; Skin Lesion; Long-term Current Use of Anticoagulant; Senile Purpura; Noncompliance with Treatment Jero Anderson Jr, MD: [address] [facility] [address] [address], Ph. 11/08/2017 Hypertensive Renal Disease; Type 2 Diabetes Mellitus; Mixed Hyperlipidemia; History of Cerebrovascular Accident with Residual Deficit; History of Malignant Melanoma; Osteoarthritis of Knee; Advance Directive Discussed with Patient; Depression Screening; At Risk for Falls Jero Anderson Jr, MD: [address] [facility] [address] [address], Ph. 09/20/2017 Hypertensive Renal Disease; Tachycardia; Type 2 Diabetes Mellitus; Mixed Hyperlipidemia; History of Cerebrovascular Accident with Residual Deficit; Peripheral Circulatory Disorder Associated with Type 2 Diabetes Mellitus; History of Malignant Melanoma; Dysplastic Nevus of Skin Jero Anderson Jr, MD: [address], [address] [address], Ph. 08/23/2017 Hypertensive Renal Disease; Type 2 Diabetes Mellitus; Hyperkalemia; History of Angioplasty of Carotid Artery Jero Anderson Jr, MD: [address] [address], Ph. 08/10/2017 Hypertensive Renal Disease; History of Cerebrovascular Accident; History of Cerebrovascular Accident with Residual Deficit; Carotid Artery Occlusion; Mixed Hyperlipidemia; Type 2 Diabetes Mellitus; Peripheral Circulatory Disorder Associated with Type 2 Diabetes Mellitus; Chronic Kidney Disease Due to Type 2 Diabetes Mellitus; Chronic Kidney Disease Stage 3; History of Malignant Melanoma; Peripheral Venous Insufficiency; Foot Callus; Onychomycosis of Toenails; Body Mass Index 25-29 - Overweight; Adult Health Examination; Advance Directive Discussed with Patient; Depression Screening Jero Anderson Jr, MD: [address] [address], Ph. 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 05/11/2017 Chronic Kidney Disease Due to Type 2 Diabetes Mellitus; Chronic Kidney Disease Stage 3; Mixed Hyperlipidemia; Hypertensive Renal Disease; Immunization; Screening for Malignant Neoplasm of Prostate; Depression Screening; At Risk for Falls Caron Brown MD: [address], [place] [address], Ph. 02/09/2017 Hypertensive Renal Disease; Mixed Hyperlipidemia; Coronary Arteriosclerosis; Type 2 Diabetes Mellitus Jero Anderson Jr, MD: [address], [address], [place] [address], Ph. Social History Smoking Status Former Smoker (1 PPD) Notes: QUIT 1990 Vaccine List Vaccine Type influenza, high dose seasonal 05/11/20170.5 mL pneumococcal conjugate PCV 13 05/11/20170.5 mL pneumococcal polysaccharide PPV23 05/19/2016 Tdap 05/30/20170.5 mL Plan of Care Patient Instructions It was good to see you in the office today for your Medicare Annual Wellness Visit. You have been provided some information on healthy nutrition, including a diet rich in fruits and vegetables, minimizing simple carbohydrates, salt, and saturated fats. I want to encourage regular cardiovascular exercise such as walking at least 30 minutes daily, 5 times per week. Please remember to schedule any preventive health measures that we talked about today. You have also been provided education on fall prevention and community- based lifestyle interventions to help reduce health risks and promote healthy living in your [employer] folder. Screening Recommendations 1. Vaccines Pneumococcal: discussed today and information sent with patient in their [place] [employer] health folder Influenza: discussed today and information sent with patient in their [employer] health folder Shingles: Recommended today Tetanus: discussed today and information sent with patient in their [employer] health folder 2. Prostate Screening: No screening necessary 3. Colorectal cancer Screening Colonoscopy: No screening necessary Fecal Occult Blood: discussed today and information sent with patient in their [employer] health folder 4. Bone Mass Measurement: discussed today 5. Eye Exam Screening: discussed today 6. Cholesterol Screening: discussed today 7. Diabetes Screening: discussed today It was good to see you in the office today for your Medicare Annual Wellness Visit. You have been provided some information on healthy nutrition, including a diet rich in fruits and vegetables, minimizing simple carbohydrates, salt, and saturated fats. I want to encourage regular cardiovascular exercise such as walking at least 30 minutes daily, 5 times per week. Please remember to schedule any preventive health measures that we talked about today. You have also been provided education on fall prevention and community- based lifestyle interventions to help reduce health risks and promote healthy living in your [employer] folder. Screening Recommendations 1. Vaccines Pneumococcal: discussed today and information sent with patient in their [place] [employer] health folder Influenza: discussed today and information sent with patient in their [place] [employer] health folder Shingles: discussed today and information sent with patient in their [place] [employer] health folder Tetanus: discussed today and information sent with patient in their [place] [employer] health folder 2. Prostate Screening: discussed today and information sent with patient in their [employer] health folder 3. Colorectal cancer Screening Colonoscopy: discussed today and information sent with patient in their [place] [employer] health folder Fecal Occult Blood: discussed today and information sent with patient in their [employer] health folder 4. Bone Mass Measurement: discussed today 5. Eye Exam Screening: discussed today 6. Cholesterol Screening: Your next lipid panel in: 3 months 7. Diabetes Screening: Ordered Prescriptions were sent to your pharmacy today, please call if any issues labs ordered today- results should be back within the the next 7 days- check the patient portal Reminders Provider Appointments None recorded. Lab None recorded. Referral None recorded. Procedures None recorded. Surgeries None recorded. Imaging None recorded. Vitals 12/05/2017 08:45AM Est Patient Height Weight BMI Blood Pressure 5 ft 8 in 176 lbs 26.8 kg/m2 168/76 mm[Hg] 11/08/2017 08:45AM Est Patient Height Weight BMI Blood Pressure 5 ft 8 in 183 lbs 27.8 kg/m2 (1) 170/90 mm[Hg] (2) 160/82 mm[Hg] 09/20/2017 09:15AM Est Patient Height Weight BMI Blood Pressure 5 ft 8 in 181 lbs 27.5 kg/m2 (1) 150/98 mm[Hg] (2) 140/78 mm[Hg] 08/23/2017 08:45AM [employer]/EST CPX Height Weight BMI Blood Pressure 5 ft 8 in 179 lbs 27.2 kg/m2 130/80 mm[Hg] 08/10/2017 08:30AM AWV Height Weight BMI Blood Pressure 5 ft 8 in 177.6 lbs 27 kg/m2 122/66 mm[Hg] 05/30/2017 12:00PM Est Patient Height Weight BMI Blood Pressure 5 ft 8 in 177.6 lbs 27 kg/m2 126/74 mm[Hg] 05/11/2017 10:00AM Est Patient Height Weight BMI Blood Pressure 5 ft 8 in 180 lbs 27.4 kg/m2 130/80 mm[Hg] 02/09/2017 08:30AM Est Patient Height Weight BMI Blood Pressure 5 ft 8 in 187 lbs 28.4 kg/m2 140/82 mm[Hg]
--- OUTSIDE RECORDS SUMMARY | 2019-01-12 10:12 | XMS REPORT | Encounter Summary ---
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 Jero Anderson 3 [phone] Jero Anderson Jr, MD 3 [phone] Jason Jackson MD 105 [phone] Giovani Saucedo MD 114 [phone] Reason for Visit Quality BMI DEPRESSION FALL; AWV Annual Wellness Visit Male (VFP); Quality 65+ Instructions 1. Adult health examination 2. Body mass index 25-29 - overweight learning about healthy weight 3. Advance directive discussed with patient 4. Depression screening 5. At risk for falls preventing falls: care instructions 6. Type 2 diabetes mellitus HbA1c (hemoglobin A1c), blood glucose, fingerstick, blood microalbumin:creatinine ratio, urine 7. Hypertensive heart AND renal disease CMP, serum or plasma CBC w/ auto diff urinalysis, dipstick 8. Chronic obstructive lung disease 9. Chronic kidney disease stage 3 10. Mixed hyperlipidemia lipid panel, serum 11. Long-term current use of anticoagulant 12. Senile purpura 13. Peripheral circulatory disorder associated with type 2 diabetes mellitus Discussion Note: None recorded. Plan of Care Patient Instructions It was [...] risks and promote healthy living in your Annual Wellness folder. Screening Recommendations 1. Vaccines Pneumococcal: discussed today and information sent with patient in their Annual Wellness health folder Influenza: discussed today and information sent with patient in their Annual Wellness health folder Shingles: Recommended today Tetanus: Recommended today 2. Prostate Screening: discussed today and information sent with patient in their Annual Wellness health folder 3. Colorectal cancer Screening Colonoscopy: No screening necessary Fecal Occult Blood: No screening necessary 4. Bone Mass Measurement: No screening necessary 5. Eye Exam Screening: discussed today 6. Cholesterol Screening: Ordered 7. Diabetes Screening: Ordered Reminders Provider Appointments None recorded. Lab HbA1C (Hemoglobin a1C), Blood 11/20/2018 [facility] Glucose, Fingerstick, Blood 11/20/2018 [facility] Microalbumin:creatinine Ratio, Urine 11/20/2018 [facility] CMP, Serum or Plasma 11/20/2018 [facility] CBC W/ Auto Diff 11/20/2018 [facility] Lipid Panel, Serum 11/20/2018 [facility] Urinalysis, Dipstick 11/20/2018 [facility] Referral None recorded. Procedures None recorded. Surgeries None recorded. Imaging None recorded. Medications Name Start Date Advair Diskus 500 mcg-50 mcg/dose powder for inhalation Inhale 1 puff twice a day by inhalation route. atorvastatin 20 mg tablet TAKE ONE (1) TABLET(S) BY MOUTH ONCE A DAY. clopidogrel 75 mg tablet TAKE ONE (1) TABLET(S) BY MOUTH ONCE A DAY. famotidine 20 mg tablet Take 1 tablet twice a day by oral route. Men 50 Plus Multivitamin TAKE 1 A DAY nifedipine ER 30 mg tablet,extended release TAKE ONE (1) TABLET(S) BY MOUTH ONCE A DAY. V-R Xunffez-Jmvpicxbq-Qgjq 1000 mg-400 mg-15 mg tablet Take 1 tablet every day by oral route for 90 days. Ventolin HFA 90 mcg/actuation aerosol inhaler Inhale 2 inhalations every 4 hours by inhalation route. Vitamin C 1,000 mg tablet Take 1 tablet every day by oral route for 90 days. Vitamin D3 2,000 unit capsule Take 1 capsule every day by oral route for 90 days. Medications Administered None recorded. Vitals Height Weight BMI Blood Pressure 5 ft 8 in 182 lbs 27.7 kg/m2 128/60 mm[Hg] Lab Results None recorded. Allergies Code Code System Name Reaction Severity Status Onset 3640 RxNorm Doxycycline Facial Swelling Active 19476 RxNorm Lisinopril Cough Active Problems Name Status Onset Date Source Mixed Hyperlipidemia Active 05/11/2017 Chronic Kidney Disease Stage 3 Active 05/11/2017 Chronic Kidney Disease Due to Type 2 Diabetes Mellitus Active 05/11/2017 Type 2 Diabetes Mellitus Active 08/10/2017 Peripheral Circulatory Disorder Associated with Type 2 Diabetes Mellitus Active 08/10/2017 Carotid Artery Occlusion Active 08/10/2017 Peripheral Venous Insufficiency Active 08/10/2017 Foot Callus Active 08/10/2017 Peripheral Edema Active 08/10/2017 History of Malignant Melanoma Active 08/10/2017 History of Cerebrovascular Accident Active 08/10/2017 History of Cerebrovascular Accident with Residual Deficit Active 08/10/2017 Hyperkalemia Active 08/13/2017 History of Angioplasty of Carotid Artery Active 08/23/2017 Basal Cell Carcinoma of Skin Active 01/03/2018 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 Chronic Obstructive Lung Disease Active 05/15/2018 Gastroesophageal Reflux Disease Active 05/15/2018 Impaired Glucose Tolerance Active 05/16/2018 Long-term Current Use of Anticoagulant Active 05/27/2018 Osteoarthritis of Knee Active 08/21/2018 Procedures Date Name Performed by 09/03/2017 Gastrointestinal Surgery Information not available Hernia Repair Information not available Tonsillectomy Information not available Vaccine List Vaccine Type influenza, high dose seasonal 05/11/20170.5 mL influenza, unspecified formulation 07/02/2018 pneumococcal conjugate PCV 13 05/11/20170.5 mL pneumococcal polysaccharide PPV23 06/05/2006 05/19/2016 Tdap 05/30/20170.5 mL Social History Smoking Status Former Smoker (1 PPD) Past Encounters 11/20/2018 Adult Health Examination; Body Mass Index 25-29 - Overweight; Advance Directive Discussed with Patient; Depression Screening; At Risk for Falls; Type 2 Diabetes Mellitus; Hypertensive Heart and Renal Disease; Chronic Obstructive Lung Disease; Chronic Kidney Disease Stage 3; Mixed Hyperlipidemia; Long-term Current Use of Anticoagulant; Senile Purpura; Peripheral Circulatory Disorder Associated with Type 2 Diabetes Mellitus Jero Anderson Jr, MD: [address] [facility], [address], [place] [address], Ph. History of Present Illness Mini Cog Reported By: Patient Functional Ability: Personal/Social/ Draw a clock and write in the numbers in the correct place, and set the time to 10 minutes after 11 o'clock was completed correctly? Yes, 3 word recall: Your nurse or doctor will ask you to remember 3 words. In 5 minutes, they will ask you to repeat them. Patient recalled 3 words Review of Systems Comprehensive General Adult ROS Reported By: Patient Constitutional: Constitutional: no significant weight gain, no significant weight loss Cardiovascular: Cardiovascular: no chest pain, no shortness of breath when walking Respiratory: Respiratory: no cough, no wheezing, no shortness of breath Endocrine: Endocrine: no fatigue Physical Exam Neurology Exam Reported By: Patient Constitutional: Weight: well-nourished. Ambulation: ambulates independently Head: Size/Trauma: normocephalic Mental Status: Orientation oriented to person, oriented to place, oriented to time. Mood/Affect: appropriate mood, appropriate affect. Language: has spontaneous speech. Memory: recent memory intact, remote memory intact. Fund of Knowledge: current events, past history
[2019-01-12] MEDS ORDERED: SODIUM CHLORIDE 0.9% 500ML 500 ML IV STA (10:26)
[2019-01-12] MEDS ORDERED: FAMOTIDINE 20 MG/2 ML VIAL IV ONE (10:30)
[2019-01-12] MEDS ORDERED: ONDANSETRON HCL INJ 2MG/ML 2ML 2 MG/ML VIAL IV PRN ×2 (10:30→12:45)
[2019-01-12 11:17] LABS: BASOPHILS # (AUTO) 0.1 (0.0-0.1); BASOPHILS % 0.5 % (0.0-1.0); EOSINOPHILS # (AUTO) 0.2 (0.0-0.4); EOSINOPHILS % 1.4 % (0.0-6.0); HEMATOCRIT 41.2 % (38.2-49.6); LYMPHOCYTES # (AUTO) 1.7 (1.0-3.2); LYMPHOCYTES % 15.8 % (18.0-39.1); MEAN CORPUSCULAR HEMOGLOBIN 32.2 pg (28-32); MEAN CORPUSCULAR VOLUME 94.7 fL (81-99); MONOCYTES # (AUTO) 0.9 (0.2-0.8); MONOCYTES % 8.7 % (4.4-11.3); NEUTROPHILS # (AUTO) 7.9 (2.1-6.9); PLATELET COUNT 245 x10e3/uL (140-360); RED BLOOD COUNT 4.35 x10e6/uL (4.3-5.7); RED CELL DISTRIBUTION WIDTH 13.6 % (11.7-14.4)
--- NOTE | 2019-01-12 11:25 | Diagnostic Imaging Report ---
EXAMINATION: CHEST SINGLE (PORTABLE) COMPARISON: Chest x-ray 08/02/2018 INDICATION: Difficulty swallowing, chest pain ^Chest pain, look for CHF, enlarge Mediastinum ^20190112 ^1110 DISCUSSION: Frontal view of the chest obtained at 1110 hours. HEART AND MEDIASTINUM: The heart is top normal in size and stable. The aorta is tortuous. The esophagus is collapsed. LINES: None. LUNGS: Diffuse hyperinflation. Mild central vascular prominence is similar. Reticulation in the upper lobes is stable. No confluent infiltrates. No evidence of CHF. PLEURA: No pleural effusion or pneumothorax. BONES AND SOFT TISSUES: No focal osseous lesion. The soft tissues are normal. IMPRESSION: Stable pulmonary hyperinflation and upper lobe reticulation, suggestive of fibrosis. No evidence of CHF. Signed by: Dr. Sapna Rocha MD on 01/12/2019 11:22 AM
[2019-01-12] MEDS ORDERED: BACITRACIN ZINC 15 GM OINT TOP ONE (11:30)
[2019-01-12 11:35] LABS: ALBUMIN 4.2 g/dL (3.5-5.0); ALBUMIN/GLOBULIN RATIO 1.2 (0.8-2.0); ANION GAP 13.7 mmol/L (8-16); CALCIUM 9.7 mg/dL (8.4-10.2); CREATININE, SERUM 1.93 mg/dL (0.72-1.25); POTASSIUM 4.7 mmol/L (3.5-5.1)
[2019-01-12 11:41] LABS: CREATINE KINASE MB 3.7 ng/mL (0-5.0)
[2019-01-12 12:44] LABS: INR 0.93
[2019-01-12 12:45] LABS: PARTIAL THROMBOPLASTIN TIME 26.2 seconds (23.8-35.5)
[2019-01-12] MEDS: NIFEDIPINE CR 30 MG TAB PO SCH (13:30)
[2019-01-12] MEDS: SODIUM CHLORIDE 0.9% 1000ML 1,000 ML IV SCH (13:30)
[2019-01-12] MEDS: FAMOTIDINE 20 MG/2 ML VIAL IV SCH ×2 (13:30→23:59)
[2019-01-12 13:50] VITALS: BP 184/70
[2019-01-12 13:55] VITALS: BP 184/70
[2019-01-12] MEDS ORDERED: ALLERGY RELIEF1 EAC2 PO (14:02)
--- NOTE | 2019-01-12 14:10 | NUR ---
RECD PT IN STRETCHER FROM ER AAOX3,DENIES PAIN,IV INFUSING TO RT AC 20 GAUGE NS.CALL CARTER IN PLACE HOB ELEVATED
[2019-01-12 15:56] VITALS: BP 142/69
--- NOTE | 2019-01-12 17:10 | NUR ---
PT UP IN BED NO DISTRESS NOTED,DENIES PAIN
[2019-01-12 18:39] LABS: CREATINE KINASE MB 3.1 ng/mL (0-5.0)
[2019-01-12 20:00] VITALS: BP 140/64
[2019-01-12 20:30] VITALS: BP 142/69
[2019-01-13] VITALS (7 sets, daily range): BP systolic 103–135; BP diastolic 58–92
[2019-01-13 06:15] LABS: BASOPHILS # (AUTO) 0.1 (0.0-0.1); BASOPHILS % 0.6 % (0.0-1.0); EOSINOPHILS # (AUTO) 0.2 (0.0-0.4); EOSINOPHILS % 2.3 % (0.0-6.0); HEMATOCRIT 38.5 % (38.2-49.6); HEMOGLOBIN 12.7 g/dL (14.0-18.0); LYMPHOCYTES # (AUTO) 1.6 (1.0-3.2); MEAN CORPUSCULAR HEMOGLOBIN 31.8 pg (28-32); MEAN CORPUSCULAR VOLUME 96.3 fL (81-99); MONOCYTES # (AUTO) 0.9 (0.2-0.8); MONOCYTES % 10.1 % (4.4-11.3); NEUTROPHILS # (AUTO) 5.7 (2.1-6.9); NEUTROPHILS % 67.3 % (38.7-80.0); PLATELET COUNT 191 x10e3/uL (140-360); RED CELL DISTRIBUTION WIDTH 13.6 % (11.7-14.4)
[2019-01-13 06:41] LABS: CREATINE KINASE MB 2.4 ng/mL (0-5.0)
[2019-01-13 06:53] LABS: ALBUMIN 3.2 g/dL (3.5-5.0); ALBUMIN/GLOBULIN RATIO 1.2 (0.8-2.0); ANION GAP 11.3 mmol/L (8-16); CALCIUM 8.6 mg/dL (8.4-10.2); CHOL/HDL RATIO 2.7 (3.9-4.7); CREATININE, SERUM 1.3 mg/dL (0.72-1.25); POTASSIUM 4.3 mmol/L (3.5-5.1)
--- NOTE | 2019-01-13 07:02 | NUR ---
RECEIVED PATIENT RESTING IN BED. NO ACUTE DISTRESS NOTED. PATIENT DENIES PAIN OR DISCOMFORT. CALL LIGHT WITHIN REACH. BED IN THE LOWEST POSITION.
[2019-01-13] MEDS: SODIUM CHLORIDE 0.9% 1000ML 1,000 ML IV SCH (08:35)
[2019-01-13] MEDS ORDERED: ALBUTEROL SULFATE HFA 8GM INHALATION AEROSOL INH PRN (09:00)
[2019-01-13] MEDS ORDERED: SALMETEROL/FLUTICASONE 500/50 INH SCH (09:00)
[2019-01-13] MEDS ORDERED: ALBUTEROL/IPRATROPIUM 3 ML NEB INH PRN (11:00)
--- NOTE | 2019-01-13 11:39 | NUR ---
PATIENT OFF UNIT FOR PROCEDURE.
--- NOTE | 2019-01-13 12:10 | NUR ---
Nutrition Screen Note RD Recommendation for Physician: - When medically feasible ADAT to GI Soft Plan of Care: RD following, monitoring for tolerance and adequacy Nutrition reason for involvement: Nutrition Risk Trigger- MST 2 Primary Diagnose(s):chest pain, esophageal stricture PMH: no H&P in chart Ht: 68 in Wt: 182 lb BMI: 27.7 kg/m2 IBW: [address] Assessment: (01/13) 83 YOM admitted for esophageal stricture, pt seen today per MST score. Pt reports difficulty swallowing yesterday and was brought to ER by daughter. Pt currently NPO for pending esophageal dilation. Pt reports good appetite and po intake W[employer] COM[employer]ATION, reports difficulty swallowing x 1 day. Pt denies any GI distress and denies any wt loss, UBW of ~ 165#. Chart reviewed. Labs and meds reviewed, BMP-WNL. Will monitor and continue to follow. Current Diet: NPO- for procedure Malnutrition Evaluation (01/13/19) The patient does not meet criteria for a specified degree of malnutrition at this time. Will re-evaluate at follow-up as appropriate. Diet Education Needs Assessment: Diet education not indicated. Nutrition Care Level: Low Signed: Dee Freeman RD, LD, [facility]
--- NOTE | 2019-01-13 13:30 | NUR ---
PATIENT BACK TO UNIT AT THIS TIME.
[2019-01-13] MEDS: FAMOTIDINE 20 MG/2 ML VIAL IV SCH (13:32)
[2019-01-13] MEDS: NIFEDIPINE CR 30 MG TAB PO SCH (13:46)
--- NOTE | 2019-01-13 15:32 | History and Physical ---
The patient is placed on observation. PRIMARY CARE PHYSICIAN: Dr. Jero Anderson. IP TECHNOLOGY TRANSACTIONS ATTORNEY: Dr. Orion Badillo. CHIEF COMPLAINT: Dysphagia with esophageal stricture. HISTORY OF PRESENT ILLNESS: The patient is an 83-year-old male with multiple chronic medical problems, came in because he needed the esophageal dilatation. The patient had history of esophageal strictures. The patient had esophageal stricture at the gastroesophageal junction, dilated to 54-[place] Frank back in May 12, 2018. The patient is otherwise stable at this time. PAST MEDICAL HISTORY: Stable COPD, hypertension, carotid disease with history of left carotid endarterectomy. Esophageal stricture at the GE junction, status post dilatation back in May 2018. SOCIAL HISTORY: The patient does not smoke or use alcohol. No recreational drugs. ALLERGIES: TRIGLYCERIDES AND DOXYCYCLINE. HOME MEDICATIONS: The patient is on albuterol, Lipitor, Plavix, Pepcid, loratadine inhaler, Advair, DuoNeb, nifedipine. PHYSICAL EXAMINATION: VITAL SIGNS: Temperature is 98, blood pressure 103/58, pulse rate 61, respirations 18. GENERAL: The patient is not in acute distress. He is awake. HEENT: Normocephalic, atraumatic. Anicteric. NECK: Supple grossly. PULMONARY: Clear. CARDIOVASCULAR: Regular rate and rhythm. ABDOMEN: Soft and unremarkable. EXTREMITIES: No cyanosis or edema. NEUROLOGIC: No focal deficit. LABORATORY DATA: Sodium is 141, potassium 4.3, chloride 114, bicarb 20, BUN 25, creatinine 1.3, glucose 84. WBC is 8.5, hemoglobin 12.7, hematocrit 38.5, platelets is 191. IMPRESSION: Esophageal strictures, recurrent at GE junction. PLAN: EGD today. The patient is on observation. If stable, the patient may be able to discharge today or tomorrow depending on the EGD. MD ANGEL Burgos/EKTA /[id number]
--- NOTE | 2019-01-13 16:19 | NUR ---
CM SPOKE TO PATIENT AT BEDSIDE REGARDING BRAVO LETTER. BRAVO LETTER GIVEN WITH EXPLANATION BASED ON ANTICIPATED OBSERVATION STATUS. ORIGINAL SIGNED AND PLACED IN CHART; COPY OF ORIGINAL DOCUMENT GIVEN TO PATIENT AT BEDSIDE AND PLACED IN CARE TRANSITION FOLDER. CM CONTACT INFORMATION GIVEN TO PATIENT FOR ANY NEEDS OR CONCERNS. PATIENT WITH NO FURTHER QUESTIONS.
--- NOTE | 2019-01-13 16:57 | NUR ---
PAGED DR. Lennie LOPEZ TO NOTIFY HIM THAT PATIENT IS BEING DISCHARGED.
--- NOTE | 2019-01-13 17:28 | NUR ---
RECEIVED ORDER FOR DISCHARGE FROM MD. PATIENT IS IN STABLE CONDITION. TOLERATING GI SOFT DIET. IV LINE TO RIGHT AC DCD AT 1715, PRESSURE APPLIED TO SITE, NO BLEEDING NOTED. DISCHARGE TEACHING PROVIDED TO PATIENT AND DAUGHTER, THEY BOTH VERBALIZED UNDERSTANDING. DISCHARGE FOLDER AND PERSONAL ITEMS ON HAND. PATIENT ACCOMPANIED TO PRIVATE AUTO VIA WHEELCHAIR BY STAFF.
[2019-01-13] MEDS ORDERED: PROPOFOL IV EMULSION 10 MG/ML 50 ML VIAL ONE (18:03)
--- NOTE | 2019-01-13 18:48 | Operative Report ---
DATE OF PROCEDURE: 01/13/2019 SURGEON: Orion Badillo MD PROCEDURE: Esophagogastroduodenoscopy with esophageal dilatation. INDICATIONS FOR PROCEDURE: Dysphagia to solids. MEDICATION: The patient was done under MAC, please see anesthesiologist's note. PROCEDURE IN DETAIL: With the patient in left lateral decubitus position, flexible fiberoptic Olympus gastroscope was introduced into the esophagus under direct visualization without any difficulty. There was some patchy erythema noted in distal esophagus. There was a mild stricture noted at the GE junction that was dilated to size 54-[place] Frank. The scope was then advanced with ease into the stomach traversing a moderate-sized hiatal hernia. Mucosa overlying the antrum and the body revealed some patchy erythema. The pylorus was of normal contour and shape, it was intubated with ease and the scope was advanced all the way to the second portion of the duodenum. The scope was then withdrawn slowly and mucosa overlying the proximal second portion and the duodenal bulb appeared to be within normal limits. The scope was then withdrawn back into the stomach and retroflexed and mucosa overlying the fundus appeared to be within normal limits. The previously described hiatal hernia was also noted in the retroflexed position. The scope was then straightened out, it was subsequently withdrawn. The patient tolerated procedure well. IMPRESSION: 1. Distal esophagitis, mild. 2. Esophageal stricture at GE junction dilated to size 54-Wall[place] Frank. 3. Moderate-sized hiatal hernia. 4. Gastritis, mild. PLAN: Follow up histology. Initiate Protonix 40 mg one p.o. q.a.m. a.c. Orion Badillo MD [facility] /[id number] cc: Han Yusuf MD
== END 2019-01-13 17:30 | disposition home or self-care (01) ==
LOC: ER 10:09 → ERHOLD 12:34 → INTOOBSV 12:34 → MED/SURG3 14:05
PROVIDERS: ADMIT Internal Medicine; ATTEND Internal Medicine
DX: R13.10 Dysphagia, unspecified (principal); R07.2 Precordial pain; Z88.8 Allergy status to other drugs, medicaments and biological substances; I10 Essential (primary) hypertension; J44.9 Chronic obstructive pulmonary disease, unspecified; Z86.73 Personal history of transient ischemic attack (TIA), and cerebral infarction without residual deficits; E78.5 Hyperlipidemia, unspecified; M19.90 Unspecified osteoarthritis, unspecified site; Z85.828 Personal history of other malignant neoplasm of skin; Z87.891 Personal history of nicotine dependence; Z82.49 Family history of ischemic heart disease and other diseases of the circulatory system; K22.2 Esophageal obstruction; K20.9 Esophagitis, unspecified; K44.9 Diaphragmatic hernia without obstruction or gangrene; K29.70 Gastritis, unspecified, without bleeding
CPT/HCPCS: 36415 ×2; 43450; 71045; 80053 ×2; 80061; 82550 ×2; 82553 ×2; 84484 ×2; 85025 ×2; 85610; 85730; 93005; 99284; G0378 ×2; J2405; J2704; J7030 ×2; J7040

== ENCOUNTER 2020-04-22 10:01 | Observation (INO) | payer OTHER ==
[~2020-04-22] VITALS: Ht 172.7 cm; Wt 82.6 kg
[~2020-04-22 10:01] MED LIST changes: +ALLERGY RELIEF1 EAC2 PO
--- NOTE | 2020-04-22 10:11 | Emergency Department Note ---
History of Present Illnes History of Present Illness History of Present Illness This is a 84 year old male with prior h/o esophageal stricture presents to the ED for difficulty with swallowing since this AM . Historian: Patient Arrival Mode: Car Onset (how long ago): day(s) (1) Radiation: Reports non-radiation Severity: mild Onset quality: sudden Duration (how long): day(s) (1) Timing of current episode: constant Progression: unchanged Chronicity: recurrent Context: Denies recent illness, Denies recent surgery, Denies recent immobilization, Denies recent travel, Denies trauma/injury, Denies new medications, Denies hx of DVT/PE, Denies non-compliance w/ medications, Denies other Exacerbating factors: eating Associated symptoms: Reports denies other symptoms Treatments prior to arrival: none Previous service: one or more referrals, re-evaluation Past Medical/Family History Physician Review I have reviewed the patient's past medical and family history. Any updates have been documented here. Past Medical History Recent Fever: No Clinical Suspicion of Infectio: No New/Unexplained Change in Ment: No Past Medical History: Hypertension, COPD, CVA, GERD, Hyperlipedemia Other Medical History: STROKE ARTHRITIS SKIN CANCER Past Surgical History: Hernia Repair Other Surgery: GROIN HERNIA, MELONOMA SURGERY, CAROTID ARTERY SURGERY, LENS IMPLANT Social History Smoking Cessation: Never Smoker Alcohol Use: None Any Illegal Drug Use: No Other Last Tetanus: UP TO DATE Review of Systems Review of Systems Constitutional: Reports no symptoms EENTM: Reports throat pain Cardiovascular: Reports no symptoms Respiratory: Reports no symptoms Gastrointestinal: Reports no symptoms Genitourinary: Reports no symptoms Musculoskeletal: Reports no symptoms Integumentary: Reports no symptoms Neurological: Reports no symptoms Psychological: Reports no symptoms Endocrine: Reports no symptoms Hematological/Lymphatic: Reports no symptoms Physical Exam Related Data Allergies: Coded Allergies: doxycycline (Verified Allergy, Severe, 01/12/19) ANGIOEDEMA Uncoded Allergies: TRIGLYCERIDES (Allergy, Unknown, 01/12/19) Triage Vital Signs Vital Signs Date Time Temp Pulse Resp B/P (MAP) Pulse Ox O2 Delivery O2 Flow Rate FiO2 04/22/20 10:30 98.7 79 16 127/75 96 Room Air 04/23/20 08:37 6 Vital signs reviewed: Yes Physical Exam CONSTITUTIONAL Constitutional: Present well-developed, Present well-nourished HENT HENT: Present normocephalic, Present atraumatic, Present oropharynx clear/moist, Present nose normal HENT L/R: Present left ext ear normal, Present right ext ear normal EYES Eyes: Reports PERRL, Reports conjunctivae normal NECK Neck: Present ROM normal PULMONARY Pulmonary: Present effort normal, Present breath sounds normal CARDIOVASCULAR Cardiovascular: Present regular rhythm, Present heart sounds normal, Present capillary refill normal, Present normal rate GASTROINTESTINAL Abdominal: Present soft, Present nontender, Present bowel sounds normal GENITOURINARY Genitourinary: Present exam deferred SKIN Skin: Present warm, Present dry MUSCULOSKELETAL Musculoskeletal: Present ROM normal NEUROLOGICAL Neurological: Present alert, Present oriented x 3, Present no gross motor or se nsory deficits PSYCHOLOGICAL Psychological: Present mood/affect normal, Present judgement normal Results Laboratory Lab results reviewed: Yes Laboratory comments Laboratory Tests Test 04/22/20 11:08 White Blood Count 20.25 x10e3/uL (4.8-10.8) Red Blood Count 4.39 x10e6/uL (4.3-5.7) Hemoglobin 14.0 g/dL (14.0-18.0) Hematocrit 43.8 % (38.2-49.6) Mean Corpuscular Volume 99.8 fL (81-99) Mean Corpuscular Hemoglobin 31.9 pg (28-32) Mean Corpuscular Hemoglobin Concent 32.0 g/dL (31-35) Red Cell Distribution Width 13.3 % (11.7-14.4) Platelet Count 252 x10e3/uL (140-360) Neutrophils (%) (Auto) 88.9 % (38.7-80.0) Lymphocytes (%) (Auto) 3.2 % (18.0-39.1) Monocytes (%) (Auto) 6.9 % (4.4-11.3) Eosinophils (%) (Auto) 0.0 % (0.0-6.0) Basophils (%) (Auto) 0.1 % (0.0-1.0) Neutrophils # (Auto) 18.0 (2.1-6.9) Lymphocytes # (Auto) 0.7 (1.0-3.2) Monocytes # (Auto) 1.4 (0.2-0.8) Eosinophils # (Auto) 0.0 (0.0-0.4) Basophils # (Auto) 0.0 (0.0-0.1) Absolute Immature Granulocyte (auto 0.18 x10e3/uL (0-0.1) Sodium Level 140 mmol/L (136-145) Potassium Level 4.8 mmol/L (3.5-5.1) Chloride Level 108 mmol/L (98-107) Carbon Dioxide Level 19 mmol/L (22-29) Anion Gap 17.8 mmol/L (8-16) Blood Urea Nitrogen 41 mg/dL (7-26) Creatinine 2.08 mg/dL (0.72-1.25) Estimat Glomerular Filtration Rate 30 ML/MIN (60-) BUN/Creatinine Ratio 20 (6-25) Glucose Level 162 mg/dL (74-118) Calcium Level 9.3 mg/dL (8.4-10.2) Total Bilirubin 1.2 mg/dL (0.2-1.2) Aspartate Amino Transf (AST/SGOT) 27 IU/L (5-34) Alanine Aminotransferase (ALT/SGPT) 31 IU/L (0-55) Alkaline Phosphatase 44 IU/L (40-150) Total Protein 7.6 g/dL (6.5-8.1) Albumin 4.3 g/dL (3.5-5.0) Globulin 3.3 g/dL (2.3-3.5) Albumin/Globulin Ratio 1.3 (0.8-2.0) Imaging Imaging results reviewed: Yes Impressions [place] [address] Patient Name: DEMOND ORTIZ MR #: [id number] : 1935 Age/Sex: 84/M Req #: [id number] Adm Physician: Ordered by: COLIN RANKIN DO Report #: [id number] Location: ER Room/Bed: Procedure: [id number] CT/CT CHEST WO Exam Date: 04/22/20 Exam Time: 1227 REPORT STATUS: Signed EXAM: CT Chest WITHOUT intravenous contrast 04/22/2020 12:27 PM INDICATION: Dysphagia. Concern for esophageal stricture COMPARISON: CT dated 05/11/2018 TECHNIQUE: Chest was scanned utilizing a multidetector helical scanner from the lung apex through the level of the adrenal glands without administration of IV contrast. Coronal and sagittal reformations were obtained. Routine protocol was performed. Oral contrast was given. IV CONTRAST: None RADIATION DOSE: Total DLP: 581 mGy*cm. Dose modulation, iterative reconstruction, and/or weight based adjustment of the mA/kV was utilized to reduce the radiation dose to as low as reasonably achievable. COMPLICATIONS: None FINDINGS: LINES/ TUBES: None. LUNGS AND AIRWAYS: Similar to the prior exam there are severe centrilobular upper lobe predominant emphysematous changes with multifocal areas of scarring. Lower lobe interstitial scarring and cystic change is also stable. No definite focal superimposed infiltrate or consolidation. No suspicious pulmonary nodule or mass. PLEURA: Negative for pleural effusion or pneumothorax. Previously identified trace left pleural effusion is no longer visualized. HEART AND MEDIASTINUM: The thyroid gland is normal. No mediastinal, hilar or axillary lymphadenopathy. The heart is normal in size.. Trace pericardial fluid is noted. Diffuse atherosclerotic changes of the thoracic aorta are noted extending from the aortic valve. Contrast is identified within the esophagus extending to the proximal portion suggestive of reflux. There is mild distal esophageal wall thickening with a small to moderate hiatal hernia. Contrast is identified within the stomach. UPPER ABDOMEN: Contrast is identified within the stomach. BONES: No acute osseous abnormality. SOFT TISSUES: Unremarkable. IMPRESSION: 1. Stable appearance of severe centrilobular and paraseptal upper lobe predominant emphysematous changes with lower lobe predominant interstitial scarring and cystic change. 2. No definite focal superimposed acute consolidation or infiltrate. 3. Oral contrast is identified throughout the esophagus suggestive of reflux. Negative for obstruction as contrast is identified within the stomach. Moderate hiatal hernia is noted with mild distal esophageal wall thickening. Consider direct inspection for further evaluation if clinically indicated. 4. Stable extensive calcifications of the thoracic aorta. Signed by: Luis Eduardo Manzano MD on 04/22/2020 1:05 PM Dictated By: LUIS EDUARDO MANZANO MD 1305 Transcribed By: LUCI on 04/22/20 1305 COPY TO: COLIN RANKIN DO~ [place] [address] Patient Name: DEMOND ORTIZ MR #: [id number] : 1935 Age/Sex: 84/M Req #: [id number] Adm Physician: Ordered by: COLIN RANKIN DO Report #: [id number] Location: ER Room/Bed: Procedure: [id number] CT/CT CHEST WO Exam Date: 04/22/20 Exam Time: 1227 REPORT STATUS: Signed EXAM: CT Chest WITHOUT intravenous contrast 04/22/2020 12:27 PM INDICATION: Dysphagia. Concern for esophageal stricture COMPARISON: CT dated 05/11/2018 TECHNIQUE: Chest was scanned utilizing a multidetector helical scanner from the lung apex through the level of the adrenal glands without administration of IV contrast. Coronal and sagittal reformations were obtained. Routine protocol was performed. Oral contrast was given. IV CONTRAST: None RADIATION DOSE: Total DLP: 581 mGy*cm. Dose modulation, iterative reconstruction, and/or weight based adjustment of the mA/kV was utilized to reduce the radiation dose to as low as reasonably achievable. COMPLICATIONS: None FINDINGS: LINES/ TUBES: None. LUNGS AND AIRWAYS: Similar to the prior exam there are severe centrilobular upper lobe predominant emphysematous changes with multifocal areas of scarring. Lower lobe interstitial scarring and cystic change is also stable. No definite focal superimposed infiltrate or consolidation. No suspicious pulmonary nodule or mass. PLEURA: Negative for pleural effusion or pneumothorax. Previously identified trace left pleural effusion is no longer visualized. HEART AND MEDIASTINUM: The thyroid gland is normal. No mediastinal, hilar or axillary lymphadenopathy. The heart is normal in size.. Trace pericardial fluid is noted. Diffuse atherosclerotic changes of the thoracic aorta are noted extending from the aortic valve. Contrast is identified within the esophagus extending to the proximal portion suggestive of reflux. There is mild distal esophageal wall thickening with a small to moderate hiatal hernia. Contrast is identified within the stomach. UPPER ABDOMEN: Contrast is identified within the stomach. BONES: No acute osseous abnormality. SOFT TISSUES: Unremarkable. IMPRESSION: 1. Stable appearance of severe centrilobular and paraseptal upper lobe predominant emphysematous changes with lower lobe predominant interstitial scarring and cystic change. 2. No definite focal superimposed acute consolidation or infiltrate. 3. Oral contrast is identified throughout the esophagus suggestive of reflux. Negative for obstruction as contrast is identified within the stomach. Moderate hiatal hernia is noted with mild distal esophageal wall thickening. Consider direct inspection for further evaluation if clinically indicated. 4. Stable extensive calcifications of the thoracic aorta. Signed by: Luis Eduardo Manzano MD on 04/22/2020 1:05 PM Dictated By: LUIS EDUARDO MANZANO MD 1305 Transcribed By: LUCI on 04/22/20 1305 COPY TO: COLNI RANKIN DO~ Assessment & Plan Medical Decision Making MDM Diff Dx : CVA, esophageal stricture, Food bolus, candidal esophagitis. Assessment & Plan Final Impression: (1) Dysphagia (2) Renal insufficiency (3) Leukocytosis Depart Disposition: ADMITTED Home Meds Reported Medications Sucralfate (CARAFATE) 1 Gm/10 Ml Oral.susp, 1 GM PO, ML 04/23/20 Metronidazole (FLAGYL) 250 Mg Tablet, 500 MG PO TID 04/23/20 Azithromycin (Z-SALINA) 250 Mg Tablet, 250 MG PO DAILY, #1 UDPKT Z-Pack 04/23/20 Acetaminophen (ACETAMINOPHEN) 650 Mg Supp, 650 MG RC, SUPP 04/22/20 Finasteride (FINASTERIDE) 5 Mg Tablet, 5 MG PO DAILY 04/22/20 Pantoprazole Sodium* (PROTONIX) 40 Mg Tablet.dr, 40 MG PO BID 04/22/20 Loratadine/Pseudoephedrine (ALLERGY RELIEF D-24 TABLET) 1 Each Tab.er.24h, 1 TAB PO DAILY 01/12/19 Albuterol Sulfate (VENTOLIN HFA) 18 Gm Hfa.aer.ad, 1 INH INH UD NEEDED 05/12/18 Famotidine (PEPCID) 20 Mg Tablet, 20 MG PO BID, #60 TAB 05/12/18 Salmeterol Xinaf/Fluticasone* (ADVAIR 500/50*) 1 Ea Aerp, 1 INH INH BID, #1 INH 2 Refills 05/09/18 [Nifedipine Xl] No Conflict Check, 30 MG PO DAILY, #90 05/09/18 [Duoneb] No Conflict Check, 1 INH Q4HR PRN for SHORTNESS OF BREATH 05/09/18 Clopidogrel Bisulfate (CLOPIDOGREL) 75 Mg Tablet, 75 MG PO DAILY, #30 05/02/18 Atorvastatin Calcium (ATORVASTATIN CALCIUM) 20 Mg Tablet, 20 MG PO DAILY, #30 05/02/18 COLIN RANKIN DO Apr 22, 2020 10:11
--- OUTSIDE RECORDS SUMMARY | 2020-04-22 11:32 | XMS REPORT ---
Author Author DEMOND COSTA Organization Unknown Address Unknown Phone Care Team Providers Care [facility] Wellness Coordinator Name Role Phone IGOR, LYLE PP Unavailable Reason for Referral No Reason for Referral was given. History of Present Illness No HPI available. 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); (Active) * Visit For: Postsurgical Exam (V67.00); (Active) Medication * Meloxicam TABS (Active) * AmLODIPine Besylate TABS (Active) * Atorvastatin Calcium TABS (Active) * Osteo Bi-Flex Regular Strength TABS (Active) * Potassium Gluconate TABS (Active) * Aspirin TABS (Active) * Clopidogrel Bisulfate 75 MG Oral Tablet; TAKE 1 TABLET DAILY; Start Date: 12/26/2012; End Date: (Active) * Clopidogrel Bisulfate 75 MG Oral Tablet; TAKE 1 TABLET DAILY.; Start Date: 11/07/2012; End Date: (Active) Allergies and Adverse Reactions * No Known Drug Allergies (Active) Past Medical History * History of Arthritis (V13.4); (Resolved) * History of Transient Ischemic Attack (435.9); (Resolved) Procedures Procedure Procedure Date Date Completed Status Hernia Repair - - Resolved Eye Surgery - - Resolved Tonsillectomy - - Resolved Bypass Graft Using Vein: Carotid (Same Side) - - Resolved Bypass Graft Using Vein: Carotid (Same Side) - - Resolved Family History * No Family history of Stroke Syndrome (Denied) Social History * Former Smoker (V15.82); (Active) * Being A Social Drinker (Active) Advance Directives * No Advance Directives available. Encounters * AUDIT 01/31/2013
--- OUTSIDE RECORDS SUMMARY | 2020-04-22 11:32 | XMS REPORT ---
Author Author DEMOND COSTA Organization Unknown Address Unknown Phone Care Team Providers Care Snorkelling Instructor Name Role Phone IGOR, LYLE PP Unavailable Reason for Referral No Reason for Referral was given. History of Present Illness No HPI available. 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); (Active) Medication * Aspirin TABS (Active) * Potassium Gluconate TABS (Active) * Osteo Bi-Flex Regular Strength TABS (Active) * Atorvastatin Calcium TABS (Active) * AmLODIPine Besylate TABS (Active) * Meloxicam TABS (Active) * Clopidogrel Bisulfate 75 MG Oral Tablet; TAKE 1 TABLET DAILY.; Start Date: 11/07/2012; End Date: (Active) * Clopidogrel Bisulfate 75 MG Oral Tablet; TAKE 1 TABLET DAILY; Start Date: 12/26/2012; End Date: (Active) Allergies and Adverse Reactions * No Known Drug Allergies (Active) Past Medical History * History of Arthritis (V13.4); (Resolved) * History of Transient Ischemic Attack (435.9); (Resolved) Procedures Procedure Procedure Date Date Completed Status Eye Surgery - - Resolved Tonsillectomy - - Resolved Hernia Repair - - Resolved Bypass Graft Using Vein: Carotid (Same Side) - - Resolved Bypass Graft Using Vein: Carotid (Same Side) - - Resolved Family History * No Family history of Stroke Syndrome (Denied) Social History * Former Smoker (V15.82); (Active) * Being A Social Drinker (Active) Advance Directives * No Advance Directives available. Encounters * AUDIT 01/03/2013
--- OUTSIDE RECORDS SUMMARY | 2020-04-22 11:32 | XMS REPORT | Continuity of Care Document ---
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 Active 01/31/2013 [facility] Medications Medication Details Route Status Patient Instructions Ordering Provider Order Date Source Clopidogrel Bisulfate 75 MG Oral Tablet ; Start Date: 12/26/2012; End Date: (Active) Active 12/26/2012 [facility] Clopidogrel Bisulfate 75 MG Oral Tablet ; Start Date: 11/07/2012; End Date: (Active) Active 11/07/2012 [facility] Aspirin TABS (Active) Active [facility] Potassium Gluconate TABS (Act darryl) Active [facility] Osteo Bi-Flex Regular Strength TABS (Active) Active [facility] Atorvastatin Calcium TABS (Ac tive) Active [facility] AmLODIPine Besylate TABS (Act darryl) Active [facility] Meloxicam TABS (Active) Active [facility] Allergies, Adverse Reactions, Alerts Substance Category Reaction Severity Reaction type Status Date Reported Comments Source No Known Drug Allergies drug a llergy drug aller gy Active [facility] Immunizations No Data Provided for This Section Results No Data Provided for This Section Pathology Reports No Data Provided for This Section Diagnostic Reports No Data Provided for This Section Consultation Notes No Data Provided for This Section Discharge Summaries No Data Provided for This Section History and Physicals No Data Provided for This Section Vital Signs No Data Provided for This Section Encounters Location Location Details Encounter Type Encounter Number Reason For Visit Attending Provider ADM Date DC Date Status Source AUDIT [id number] 01/03/2013 01/03/2013 [facility] AUDIT [id number] 01/31/2013 01/31/2013 [facility] Procedures No Data Provided for This Section Assessment and Plan No Data Provided for This Section Plan of Care No Data Provided for This Section Social History Social History Date Source Former Smoker (V15.82); (Active) Being A Social Drinker (Active) 01/31/2013 [facility] Family History Value Date S ource No Family history of Stroke Syndrome (Denied) 01/31/2013 [facility] No Family history of Stroke Syndrome (Denied) 01/03/2013 [facility] Advance Directives Order Name Results Value Date Source Advance Directives Advance Dir ectives No Advance Directives available. 01/31/2013 [facility] Advance Directives Advance Dir ectives No Advance Directives available. 01/03/2013 [facility] Functional Status No Data Provided for This Section
--- OUTSIDE RECORDS SUMMARY | 2020-04-22 11:33 | XMS REPORT | Encounter Summary ---
Author Organization Unknown Address [address] [place] [address] Phone [phone] Care Team Providers Care Track Service Worker Name Role Phone Dr. Jero Anderson 3 [phone] Jero Anderson Jr, MD 3 [phone] Jason Jackson MD 105 [phone] Giovani Saucedo MD 114 [phone] Reason for Visit hypertension; diabetes Instructions 1. Type 2 diabetes mellitus glucose, fingerstick, blood 2. 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 Hypertensive heart AND renal disease nifedipine ER 30 mg tablet,extended re lease 4. Chronic kidney disease stage 3 5. History of cerebrovascular accident 6. Long-term current use of anticoagulan t clopidogrel 75 mg tablet 7. Mixed hyperlipidemia atorvastatin 20 mg tablet 8. Gastroesophageal reflux disease pantoprazole 40 mg tablet,delayed rele ase 9. Osteoarthritis of knee Tylenol Arthritis Pain 650 mg tablet,e xtended release Discussion Note: None recorded. Patient educational handouts: No information available. Plan of Care Reminders Provider Appointments None recorded. Lab Glucose, Fingerstick, Blood 08/18/2019 [facility] Referral None recorded. Procedures None recorded. Surgeries None recorded. Imaging None recorded. Medications Name Start Date Advair Diskus 500 mcg-50 mcg/dose powder for inhalation Inhale 1 puff twice a day by inhalation route for 100 days. albuterol sulfate HFA 90 mcg/actuation a erosol inhaler Inhale 2 puffs every 4 hours by inhalation route. atorvastatin 20 mg tablet Take 1 tablet every day by oral route. clopidogrel 75 mg tablet Take 1 tablet every day by oral route. Men 50 Plus Multivitamin TAKE 1 A DAY nifedipine ER 30 mg tablet,extended rele ase Take 1 tablet every day by oral route. pantoprazole 40 mg tablet,delayed releas e Take 1 tablet twice a day by oral route. Tylenol Arthritis Pain 650 mg tablet,ext ended release Take 2 tablets every 8 hours by oral route for 90 days. V-R Tihyddw-Uqmmdismy-Lkss 1000 mg-400 m g-15 mg tablet Take 1 tablet every day by oral route for 90 days. Vitamin C 1,000 mg tablet Take 1 tablet every day by oral route for 90 days. Vitamin D3 50 mcg (2,000 unit) capsule Take 1 capsule every day by oral route for 90 days. Medications Administered None recorded. Vitals Height Weight BMI Blood Pressure 5 ft 8 in 183 lbs 27.8 kg/m2 (1) 174/72 mm[H g] (2) 136/72 mm[Hg] Results Lab Results None recorded. Allergies Code Code System Name Reaction Severity Status Onset 3640 RxNorm Doxycycline Facial Swelling Active 88876 RxNorm Lisinopril Cough Active Problems Name Status Onset Date Source Mixed Hyperlipidemia Active 05/11/2017 Chronic Kidney Disease Stage 3 Active 05/11/2017 Chronic Kidney Disease Due to Type 2 Diabetes Mellitus Active 05/11/2017 Type 2 Diabetes Mellitus Active 08/10/2017 Peripheral Circulatory Disorder Associated with Type 2 Diabe jenny Mellitus Active 08/10/2017 Carotid Artery Occlusion Active 08/10/2017 Peripheral Venous Insufficiency Active 08/10/2017 Foot Callus Active 08/10/2017 Peripheral Edema Active 08/10/2017 History of Malignant Melanoma Active 08/10/2017 History of Cerebrovascular Accident Active 08/10/2017 History of Cerebrovascular Accident with Residual Deficit Active 08/10/2017 Hyperkalemia Active 08/13/2017 History of Angioplasty of Carotid Artery Active 017 Basal Cell Carcinoma of Skin Active 01/03/2018 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 Chronic Obstructive Lung Disease Active 05/15/2018 Gastroesophageal Reflux Disease Active 05/15/2018 Impaired Glucose Tolerance Active 05/16/2018 Long-term Current Use of Anticoagulant Active 8 Osteoarthritis of Knee Active 08/21/2018 Senile Purpura Active 02/19/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 05/26/2019 Procedures Date Name Performed by 09/03/2018 Gastrointestinal Surgery Information not available 09/03/2017 Gastrointestinal Surgery Information not available Hernia Repair Information not avai lable Tonsillectomy Information not avai lable Vaccine List Vaccine Type influenza, high dose seasonal 05/11/20170.5 mL 05/26/20190.5 mL influenza, unspecified formulation 07/02/2018 pneumococcal conjugate PCV 13 09/08/63683.5 mL pneumococcal polysaccharide PPV23 06/05/2006 05/19/2016 Tdap 05/30/20170.5 mL Social History Tobacco Smoking Status Former Smoker (1 PPD) Past Encounters 08/18/2019 Type 2 Diabetes Mellitus; Proteinuric Nephropathy Due to Diabetes Mellitus; Hypertensive Heart and Renal Disease; Chronic Kidney Disease Stage 3; History of Cerebrovascular Accident; Long-term Current Use of Anticoagulant; Mixed Hyperlipidemia; Gastroesophageal Reflux Disease; Osteoarthritis of Knee Jero Anderson Jr, MD: [id number] [facility], [facility] [address], [place] [address], Ph. History of Present Illness Hypertension Reported By: Patient HPI: Severity: mild. Onset/Timing : gradual onset. Alleviating Factors: relieved with rest, medication. Self Care: not under emotional stress, blood pressure goal: 130/80. Associated Symptoms: no shortness of breath, no fatigue, no decline in exercise capacity Diabetes F/U Reported By: Patient HPI: Labs: last A1C result: . Con text: no side effects from medications. Associated Symptoms: no dizziness, no sweats, no headaches, no confusion, no increased thirst, no increased appetite, no increased urination, no blurred vision, no numbness of feet Notes: Endorses medication complian ce. Hyperlipidemia Reported By: Patient HPI: Type of hyperlipidemia: comb ined, hypercholesterolemia. Duration: chronic. Current Therapy: currently taking:. Complications: no coronary artery disease Hypertension Reported By: Patient Review of Systems Comprehensive General Adult ROS, Diabetes F/U ROS Reported By: Patient Constitutional: Constitutional: no fever, no significant weight gain, no significant weight loss, no exercise intolerance Eyes: Eyes: no vision change Cardiovascular: Cardiovascular: no chest ana n, no shortness of breath when walking, no palpitations, no lightheadedness, no SOB Respiratory: Respiratory: no cough, no wh eezing, no shortness of breath Gastrointestinal: Gastrointestinal: no abdomin al pain, no nausea, no vomiting, no constipation, normal appetite, no diarrhea Genitourinary: Genitourinary: no difficulty urinating, no increased frequency Musculoskeletal: Musculoskeletal: no muscle w eakness, no arthralgias/joint pain Integumentary: Skin: no rashes, no lacerati on Neurologic: Neurologic: no weakness, no numbness, no dizziness Endocrine: Endocrine: no fatigue Extremities: Extremities: no edema, no ul cers Physical Exam General Adult Exam (male), C ardiology Exam, Diabetes, Diabetic Foot Exam Reported By: Patient Constitutional: General Appearance: well-nou rished, well-developed, appears stated age. Level of Distress: NAD Lungs: Auscultation: good air movem ent, CTA except as noted, no wheezing, no rales/crackles, no rhonchi Cardiovascular: Heart Auscultation: RRR, nor mal S1, no rubs, no gallops, physiologically split S2, no click. Pulses including femoral / pedal: full and equal in all extremities except if noted. Systolic Murmur: not heard. Diastolic Murmur: not heard Musculoskeletal:: Extremities: no cyanosis, no edema, no peripheral signs of emboli Skin: Inspection and palpation: wa rm and dry Back: Thoracolumbar Appearance: no chest wall tenderness
--- OUTSIDE RECORDS SUMMARY | 2020-04-22 11:33 | XMS REPORT | Encounter Summary ---
Author Organization Unknown Address [address] [place] [address] Phone [phone] Care Team Providers Care Analytical Research Program Manager Name Role Phone Dr. Jero Anderson 3 [phone] Jero Anderson Jr, MD 3 [phone] Jason Jackson MD 105 [phone] Giovani Saucedo MD 114 [phone] Reason for Visit hospital follow up - [facility] (P) Instructions 1. Stricture of esophagus gastroenterology referral 2. Type 2 diabetes mellitus glucose, fingerstick, blood 3. Hypertensive heart AND renal disease 4. Chronic kidney disease stage 3 5. Hospital patient Discussion Note: None recorded. Patient educational handouts: No information available. Plan of Care Patient Instructions Please follow up with your doctor in fou r weeks. Follow up with any specialists that we discussed during your visit today. If you need help getting your medications filled, our [facility] can sync medication refills, deliver within a 10 mile radius, or [facility] overnight at no additional cost. Please watch for warning symptoms that may occur: *fever *redness/oozing at surgical site *shortness of breath *uncontrolled pain *unexpected weight gain/loss *high or low blood pressure *chest pain *confusion *any other health concerns Call us at if you experience these symptoms. In addition to these services our office offers social media specialist services, home health options and chronic conditions management. Please reach out to us with your particular needs. Evening and Sunday clinic hours are available if you have problems. If you have problems after hours, you can reach the [facility] physician geographic information systems manager at . Reminders Provider Appointments Est Patient 02/19/2019 8:30AM Jero pérez Jr, MD Lab Glucose, Fingerstick, Blood 01/16/2019 [facility] ([facility] Referral Gastroenterology Referral 01/16/2019 Tiffanie Lopez MD Procedures None recorded. Surgeries None recorded. Imaging None recorded. Medications Name Start Date Advair Diskus 500 mcg-50 mcg/dose powder for inhalation Inhale 1 puff twice a day by inhalation route. albuterol sulfate HFA 90 mcg/actuation a erosol [...] nifedipine ER 30 mg tablet,extended rele ase TAKE ONE (1) TABLET(S) BY MOUTH ONCE A DAY. V-R Ojpktwr-Ksoanqxwl-Llvg 1000 mg-400 m g-15 mg tablet Take 1 tablet every day by oral route for 90 days. Vitamin C 1,000 mg tablet Take 1 tablet every day by oral route for 90 days. Vitamin D3 2,000 unit capsule Take 1 capsule every day by oral route for 90 days. Medications Administered None recorded. Vitals Height Weight BMI Blood Pressure 5 ft 8 in 189 lbs 28.7 kg/m2 136/70 mm[Hg] Lab Results Date Name Specimen Result Interpretation Description Value Range Status Address 01/16/2019 Glucose, Fingerstick, Blood Blood Glucos e: mg/dl [address] [facility] ([facility] Hobby: [id number] Allergies Code Code System Name Reaction Severity Status Onset 3640 RxNorm Doxycycline Facial Swelling Active 22027 RxNorm Lisinopril Cough Active Problems Name Status [...] Active 8 Osteoarthritis of Knee Active 08/21/2018 Procedures Date [...] Status Former Smoker (1 PPD) Past Encounters 01/16/2019 Stricture of Esophagus; Type 2 Diabetes Mellitus; Hypertensive Heart and Renal Disease; Chronic Kidney Disease Stage 3; Hospital Patient Jero Anderson Jr, MD: [id number] [facility], [address], [place] [address], Ph. History of Present Illness TCM Provider Visit Reported By: Patient HPI: Timing: Date of admit:, Date of discharge:, Is Transitional Care Management team involved? Yes; 01/12-01/13/2019. Discharge Information: Discharge Diagnoses:, Discharged from: [facility], Discharged to: Home; Esophageal stricture, s/p surgical evaluation. Functional Status No difficulty following discharge instructions Review of Systems Comprehensive General Adult ROS, Comprehensive Adult Problem ROS Reported By: Patient Constitutional: Constitutional: no fever Eyes: Eyes: no eye pain, no eye re dness, no eye swelling, no eye discharge ENMT: Ears: no difficulty hearing, no ear pain, no ear discharge, no sinus pressure, no facial swelling, no congestion, no hoarseness. Mouth/Throat: no sore throat, no mouth ulcers Endocrine: Endocrine: no fatigue Constitutional: Constitutional: no significa nt weight change, normal activity level Physical Exam General Adult Exam (male), U pper Respiratory Infection Exam Comprehensive Reported By: Patient Constitutional: General Appearance: in no ac inaja distress Eyes: Lids and Conjunctivae: non-i njected. Pupils: PERRLA. EOM: EOMI ENMT: Nose: no lesions on external nose, no sinus tenderness, normal, pink and moist. Nasal Skin: no lacerations Neck: Neck: trachea midline, symme trical Ears: Right External auditory chas l normal appearance, no obstruction, no erythema, no discharge. Left External auditory canal normal appearance, no obstruction, no erythema, no discharge. Right Tympanic membrane landmarks clear. Left Tympanic membrane: landmarks clear Oral Cavity/Mouth: Lips, teeth, gums normal lip s, normal gums. Oral Mucosa: normal, moist, no lesions. Tongue: normal tongue. Tonsils: normal tonsils, no lesions. Posterior pharynx: normal Lymph Nodes: Cervical no palpable lymph n ode enlargement
--- OUTSIDE RECORDS SUMMARY | 2020-04-22 11:33 | XMS REPORT | Encounter Summary ---
Author Organization Unknown Address [address] [place] [address] Phone [phone] Care Team Providers Care Mortarman Name Role Phone Dr. Jero Anderson 3 [phone] Jero Anderson Jr, MD 3 [phone] Jason Jackson MD 105 [phone] Giovani Saucedo MD 114 [phone] Reason for Visit Mixed hyperlipidemia; Type 2 diabetes me llitus; Hypertensive heart AND renal disease; Telemedicine Visit Instructions 1. Type 2 diabetes mellitus 2. 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 Hypertensive heart AND renal disease 4. Chronic kidney disease stage 3 5. Mixed hyperlipidemia atorvastatin 20 mg tablet 6. History of angioplasty of carotid art lita 7. Long-term current use of anticoagulan t clopidogrel 75 mg tablet Discussion Note: None recorded. Patient educational handouts: No information available. Plan of Care Reminders Provider Appointments None recorded. Lab None [...] (1) TABLET(S) BY MOUTH ONCE A DAY. pantoprazole 40 mg tablet,delayed releas e TAKE ONE (1) TABLET(S) BY MOUTH TWICE A DAY. Tylenol Arthritis Pain 650 mg tablet,ext ended release Take 2 tablets every 8 hours by oral route for 90 days. V-R Kjwxqqh-Osfgroesl-Osht 1000 mg-400 m g-15 mg tablet Take 1 tablet every day by oral route for 90 days. Vitamin C 1,000 mg tablet Take 1 tablet every day by oral route for 90 days. Vitamin D3 50 mcg (2,000 unit) capsule Take 1 capsule every day by oral route for 90 days. Medications Administered None recorded. Vitals None recorded. Results Lab Results None recorded. Allergies Code Code System Name Reaction Severity Status Onset 3640 RxNorm Doxycycline Facial Swelling Active 06893 RxNorm Lisinopril Cough Active Problems Name Status [...] Status Former Smoker (1 PPD) Past Encounters 12/05/2019 Type 2 Diabetes Mellitus; Proteinuric Nephropathy Due to Diabetes Mellitus; Hypertensive Heart and Renal Disease; Chronic Kidney Disease Stage 3; Mixed Hyperlipidemia; History of Angioplasty of Carotid Artery; Long-term Current Use of Anticoagulant Jero Anderson Jr, MD: [id number] [facility], [address], [place] [address], Ph. History of Present Illness Hypertension Reported By: Patient HPI: Severity: mild. Onset/Timing : gradual onset. Alleviating Factors: relieved with rest, medication. Self Care: not under emotional stress, blood pressure goal: 130/80. Associated Symptoms: no shortness of breath, no fatigue, no decline in exercise capacity Diabetes F/U Reported By: Patient HPI: Labs: last A1C result: 6.6. Associated Symptoms: no dizziness, no sweats, no headaches, no confusion, no increased thirst, no increased appetite, no increased urination, no blurred vision, no numbness of feet Notes: Diet controlled diabetes. Hyperlipidemia Reported By: Patient HPI: Type of hyperlipidemia: hype rcholesterolemia. Duration: chronic. Current Therapy: currently taking: atorvastatin, last LDL level: 73 date: . Complications: peripheral artery disease, cardiovascular disease. Risk Factors: diabetes, hypertension, low HDL level Hypertension Reported By: Patient Note:I confirm that I received verbal consent from the patient for the virtual visit. Review of Systems Comprehensive General Adult ROS, [...] no edema, no ul cers Physical Exam Neurology Exam, Telemedicine /Virtual Visit Reported By: Patient Constitutional: Weight: well-nourished. Ambu lation: ambulates independently Head: Size/Trauma: normocephalic Mental Status: Orientation oriented to pers on, oriented to place, oriented to time. Mood/Affect: appropriate mood, appropriate affect. Language: has spontaneous speech. Memory: recent memory intact, remote memory intact. Fund of Knowledge: current events, past history
--- OUTSIDE RECORDS SUMMARY | 2020-04-22 11:33 | XMS REPORT | Continuity of Care Document ---
Author Author [facility] t Organization [facility] Address [address] [place] [address] Phone Unavailable Care Team Providers Care Manager Combination Name Role Phone NONSTAFF PCP Unavailable Ulisses LIGHT Attphys Unavailable VINCENT ASTUDILLO Attphys Unavailable RANKIN, BAL Attphys Unavailable RANKIN, BAL Admphys Unavailable Payers Payer Name Policy Type Policy Number Effective Date Expiration Date Khanh Emmanuel [id number] 2018 00:00:00 MANDI Driscoll - Patients [facility] Center Problems Condition Name Condition Details Condition Category Status Onset Date Resolution Date Last Treatment Date Treating Clinician Comments Source 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 Problem Active 2019-05-26 00:00:00 [facility] Senile purpura Senile Purpura Problem Active 2019-02-19 00:00:00 [facility] Osteoarthritis of knee Osteoarthritis of Knee Problem Active 2018-08-21 00:00:00 [facility] Long-term current use of anticoagulant Long-term Current Use of Anticoagulant Problem Active 2018-05-27 00:00:00 [facility] Impaired glucose tolerance Impaired Glucose Tolerance Problem Active 2018-05-16 00:00:00 [facility] Chronic obstructive lung disease Chronic Obstructive Lung Diseas e Problem Active 2018-05-15 00:00:00 [facility] Gastroesophageal reflux disease Gastroesophageal Reflux Disease Pro blem Active 2018-05-15 00:00:00 [facility] 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 Problem Active 2018-03-05 00:00:00 [facility] Basal cell carcinoma of skin Basal Cell Carcinoma of Skin Problem Active 2018-01-03 00:00:00 [facility] History of angioplasty of carotid artery History of An gioplasty of Carotid Artery Problem Active 2017-08-23 00:00:00 [facility] Hyperkalemia Hyperkalemia Problem Active 2017-08-13 00:00:00 [facility] Type 2 diabetes mellitus Type 2 Diabetes Mellitus Problem Acti ve 2017-08-10 00:00:00 [facility] Peripheral circulatory disorder associated with type 2 diabetes mellitus Peripheral Circulatory Disorder Associated with Type 2 Diabetes Mellitus Problem Active 2017-08-10 00:00:00 [facility] Peripheral venous insufficiency Peripheral Venous Insufficiency Pro blem Active 2017-08-10 00:00:00 [facility] Foot callus Foot Callus Problem Active 2017-08-10 00:00:00 [facility] Peripheral edema Peripheral Edema Problem Active 2017-08-10 00:00:00 [facility] History of Malignant melanoma History of Malignant Melanoma Problem Active 2017-08-10 00:00:00 [facility] History of cerebrovascular accident History of Cerebrovascular A ccident Problem Active 2017-08-10 00:00:00 [facility] History of cerebrovascular accident with residual defi cit History of Cerebrovascular Accident with Residual Deficit Problem Active 2017-08-10 00:00:00 [facility] Mixed hyperlipidemia Mixed Hyperlipidemia Problem Active [facility] Chronic kidney disease stage 3 Chronic Kidney Disease Stage 3 Probl em Active 2017-05-11 00:00:00 [facility] 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 Disease Due to Type 2 Diabetes Mellitus Problem Active 2017-05-11 00:00:00 [facility] Chest pain Chest pain Problem Active [facility] Stricture of esophagus Esophageal stricture Problem Active [facility] Left bundle branch block (LBBB) LBBB (left bundle branch block) Pro blem Active [facility] Hypertension Hype rtension Active 01/31/2013 [facility] Problem Active 2013-01-31 12:01:14 Dereck Chavez Hypercholesterolemia Hype rcholesterolemia Active 01/31/2013 [facility] Problem Active 2013-01-31 12:01:14 Jeanie Chavez Carotid Artery Stenosis Akins tid Artery Stenosis Active 01/31/2013 [facility] Problem Active 2013-01-31 12:01: 14 Jeanie Chavez 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 Artery Stenosis - With Cerebral Infarction Active 01/31/2013 [facility] Problem Active 2013-01-31 12:01:14 Lennie Chavez Carotid artery occlusion Carotid Artery Occlusion Problem Acti ve 2017-08-10 00:00:00 2017-08-13 00:00:00 [facility] Allergies, Adverse Reactions, Alerts Allergy Name Allergy Type Status Severity Reaction(s) Onset Date Inacti ve Date Treating Clinician Comments Source Doxycycline Allergy to Substance Active Severe 2019-01-12 00:00:00 [facility] TRIGLYCERIDES Allergy to Substance Active 2019-01-12 00:00: 00 [facility] Lisinopril Allergy to substance Active Cough [facility] No Known Drug Allergies No Known Drug Allergies Active [facility] Family History Family Member Diagnosis Comments Start Date Stop Date Source Unknown Family Member Family History 2013-01-03 11:18:14 2 11:18:14 Jeanie Chavez Social History Social Habit Start Date Stop Date Quantity Comments Source Social History 2013-01-31 12:01:14 2013-01-31 12:01:14 Jeanie Chavez Smoking Status Start Date Stop Date Source Former Smoker [facility] ractice Medications Ordered Medication Name Filled Medication Name Start Date Stop Da te Current Medication? Ordering Clinician Indication Dosage Frequency Signature (SIG) Comments Components Source Aspirin TABS 2013-01-31 12:01:14 Yes (Activ e) Jeanie Chavez Potassium Gluconate TABS 2013-01-31 12:01:14 Yes (Active) Jeanie Chavez Osteo Bi-Flex Regular Strength TABS 2013-01-31 12:01:14 Yes (Active) Jeanie Chavez Atorvastatin Calcium TABS 2013-01-31 12:01:14 Yes (Active) Jeanie Chavez AmLODIPine Besylate TABS 2013-01-31 12:01:14 Yes (Active) Jeanie Chavez Meloxicam TABS 2013-01-31 12:01:14 Yes (Act darryl) Jeanie Chavez Clopidogrel Bisulfate 75 MG Oral Tablet 2012-12-26 05:00:00 Yes ; Start Date: 12/26/2012; End Date: (Active) Jeanie Chavez Clopidogrel Bisulfate 75 MG Oral Tablet 2012-11-07 06:00:00 Yes ; Start Date: 11/07/2012; End Date: (Active) Jeanie Chavez Advair Diskus 500 mcg-50 mcg/dose powder for inhalation Inhale 1 puff twice a day by inhalation route for 100 days. Advair Diskus 500 mcg-50 mcg/dose powder for inhalation Inhale 1 puff twice a day by inhalation route for 100 days. No 1puff(s) BID Advair Diskus 5 00 mcg-50 mcg/dose powder for inhalation Inhale 1 puff twice a day by inhalation route for 100 days. [facility] albuterol sulfate HFA 90 mcg/actuation a erosol inhaler Inhale 2 puffs every 4 hours by inhalation route. albuterol sulfate HFA 90 mcg/actuation a erosol inhaler Inhale 2 puffs every 4 hours by inhalation route. No 2puff(s) Q4H albuterol sulfate HFA 90 mcg/actuation a erosol inhaler Inhale 2 puffs every 4 hours by inhalation route. [facility] atorvastatin 20 mg tablet Take 1 tablet every day by o ral route. atorvastatin 20 mg tablet Take 1 tablet every day by oral route. No 1 Q1D atorvastatin 20 mg tablet Take 1 tablet every day by oral route. [facility] clopidogrel 75 mg tablet TAKE ONE (1) TABLET(S) BY KAITLYNN TH ONCE A DAY. clopidogrel 75 mg tablet TAKE ONE (1) TABLET(S) BY MOUTH ONCE A DAY. No clopidogrel 75 mg tablet TAKE ONE (1) TABLET(S) BY MOUTH ONCE A DAY. [facility] finasteride 5 mg tablet Take 1 tablet every day by ora l route for 90 days. finasteride 5 mg tablet Take 1 tablet every day by oral route for 90 days. No 1 Q1D finasteride 5 m g tablet Take 1 tablet every day by oral route for 90 days. [facility] Men 50 Plus Multivitamin TAKE 1 A DAY Men 50 Plus Multivitamin TAKE 1 A DAY No Men 50 Plus Multivitamin TAKE 1 A DAY [facility] nifedipine ER 30 mg tablet,extended rele ase TAKE ONE (1) TABLET(S) BY MOUTH ONCE A DAY. nifedipine ER 30 mg tablet,extended rele ase TAKE ONE (1) TABLET(S) BY MOUTH ONCE A DAY. No nifedi pine ER 30 mg tablet,extended release TAKE ONE (1) TABLET(S) BY MOUTH ONCE A DAY. [facility] pantoprazole 40 mg tablet,delayed releas e Take 1 tablet every day by oral route in the morning. pantoprazole 40 mg tablet,delayed releas e Take 1 tablet every day by oral route in the morning. No 1 Q1D pantoprazole 40 mg tablet,delayed release Take 1 tablet every day by oral route in the morning. [facility] Tylenol Arthritis Pain 650 mg tablet,ext ended release Take 2 tablets every 8 hours by oral route for 90 days. Tylenol Arthritis Pain 650 mg tablet,ext ended release Take 2 tablets every 8 hours by oral route for 90 days. No 2 Q8H Tylenol Arthritis Pain 650 mg tablet,ext ended release Take 2 tablets every 8 hours by oral route for 90 days. [facility] V-R Rhytwxf-Asoxwoqoe-Lrwn 1000 mg-400 m g-15 mg tablet Take 1 tablet every day by oral route for 90 days. V-R Xznudsh-Nkgoxyktd-Vxni 1000 mg-400 m g-15 mg tablet Take 1 tablet every day by oral route for 90 days. No 1 Q1D V-R Pvxdkzi-Oysuwffub-Vbde 1000 mg-400 mg-15 mg tablet Take 1 tablet every day by oral route for 90 days. [facility] ractice Vitamin C 1,000 mg tablet Take 1 tablet every day by o ral route for 90 days. Vitamin C 1,000 mg tablet Take 1 tablet every day by oral route for 90 days. No 1 Q1D Vitamin C 1,00 0 mg tablet Take 1 tablet every day by oral route for 90 days. [facility] D3 50 mcg (2,000 unit) capsule T dianelys 1 capsule every day by oral route for 90 days. Vitamin D3 50 mcg (2,000 unit) capsule T dianelys 1 capsule every day by oral route for 90 days. No 1capsule(s) Q1D Vitamin D3 50 mcg (2,000 unit) capsule Take 1 capsule every day by oral route for 90 days. [facility] Albuterol Sulfate (Ventolin Hfa) 18 Gm Hfa.aer.ad Albu terol Sulfate (Ventolin Hfa) 18 Gm Hfa.aer.ad Yes 1 Use As Directed [facility] Atorvastatin Calcium 20 Mg Tablet Atorvastatin Calcium 20 Mg Tablet Yes 20 Daily [facility] Clopidogrel Bisulfate (Clopidogrel) 75 Mg Tablet Clopi dogrel Bisulfate (Clopidogrel) 75 Mg Tablet Yes 75 Daily [facility] Duoneb Duoneb Yes 1 Every 4 Hours as n eeded for Shortness Of Breath [facility] Famotidine (Pepcid) 20 Mg Tablet Famotidine (Pepcid) 20 Mg Tablet Yes 20 Twice A Day [facility] Loratadine/Pseudoephedrine (Allergy Relief D-24 Tablet ) 1 Each Tab.er.24h Loratadine/Pseudoephedrine (Allergy Relief D-24 Tablet) 1 Each Tab.er.24h Yes 1 Daily [facility] Nifedipine Xl Nifedipine Xl Yes 30 Daily [facility] Salmeterol Xinafoate/Fluticasone (Advair 500/50*) 1 Ea Aerp Salmeterol Xinafoate/Fluticasone (Advair 500/50*) 1 Ea Aerp Yes 1 Twice A Day [facility] Benzonatate (Tessalon Perle) 100 Mg Capsule, 100 Mg Or al Benzonatate (Tessalon Perle) 100 Mg Capsule, 100 Mg Oral 2019-01-12 00:00:00 No 100 Every 4 Hours as needed for Cough [facility] Ciclopirox 30 Gm Gel..gram., 30 Mg Oral Ciclopirox 30 Gm Gel ..gram., 30 Mg Oral 2019-01-12 00:00:00 No 30 As Needed [facility] Furosemide 20 Mg Tablet, 20 Mg Oral Furosemide 20 Mg Tablet, 20 Mg Oral 2019-01-12 00:00:00 No 20 Daily [facility] Prednisone 5 Mg Tablet, 5 Mg Oral Prednisone 5 Mg Tablet, 5 Mg O ral 2019-01-12 00:00:00 No 5 [facility] Albuterol Sulfate (Proair Hfa Inhaler*) 8.5 Gm Inh, 2 Inh Albuterol Sulfate (Proair Hfa Inhaler*) 8.5 Gm Inh, 2 Inh 2018-05-12 00:00:00 No 2 Every 4 Hours as needed for Shortness Of Breath [facility] Doxycycline Monohydrate 100 Mg Tablet, 100 Mg Oral Dox ycycline Monohydrate 100 Mg Tablet, 100 Mg Oral 2018-05-12 00:00:00 No 100 T wice A Day [facility] Lisinopril 10 Mg Tablet, 10 Mg Oral Lisinopril 10 Mg Tablet, 10 Mg Oral 2018-05-09 00:00:00 No 10 Daily [facility] Immunizations Ordered Immunization Name Filled Immunization Name Date Status Comments Source influenza, high dose seasonal influenza, high dose seasonal 2018 10:20:01 Completed [facility] influenza, unspecified formulation influenza, unspecified fo rmulation 2018-07-02 00:00:00 [facility] T[facility] Tdap 2017-05-30 14:13:50 Completed [facility] pneumococcal conjugate PCV 13 pneumococcal conjugate PCV 13 2016 11:56:50 Completed [facility] influenza, high dose seasonal influenza, high dose seasonal 2016 11:48:52 Completed [facility] pneumococcal polysaccharide PPV23 pneumococcal polysaccharid e PPV23 2016-05-19 00:00:00 [facility] pneumococcal polysaccharide PPV23 pneumococcal polysaccharid e PPV23 2006-06-05 00:00:00 Completed [facility] Vital Signs Vital Name Observation Time Observation Value Comments Source BP Diastolic 2019-08-18 00:00:00 72 mm[Hg] [facility] Height 2019-08-18 00:00:00 68 [in_i] [facility] BMI (Body Mass Index) 2019-08-18 00:00:00 27.8 kg/m2 [facility] BP Systolic 2019-08-18 00:00:00 174 mm[Hg] [facility] Body Weight 2019-08-18 00:00:00 183 [lb_av] [facility] BP Diastolic 2019-05-26 00:00:00 80 mm[Hg] [facility] Height 2019-05-26 00:00:00 68 [in_i] [facility] BMI (Body Mass Index) 2019-05-26 00:00:00 26.8 kg/m2 [facility] BP Systolic 2019-05-26 00:00:00 162 mm[Hg] [facility] Practice Body Weight 2019-05-26 00:00:00 176 [lb_av] [facility] BP Diastolic 2019-02-19 00:00:00 72 mm[Hg] [facility] Height 2019-02-19 00:00:00 68 [in_i] [facility] BMI (Body Mass Index) 2019-02-19 00:00:00 27.1 kg/m2 [facility] BP Systolic 2019-02-19 00:00:00 148 mm[Hg] [facility] Body Weight 2019-02-19 00:00:00 178 [lb_av] [facility] BP Diastolic 2019-01-16 00:00:00 70 mm[Hg] [facility] Height 2019-01-16 00:00:00 68 [in_i] [facility] BMI (Body Mass Index) 2019-01-16 00:00:00 28.7 kg/m2 [facility] BP Systolic 2019-01-16 00:00:00 136 mm[Hg] [facility] Body Weight 2019-01-16 00:00:00 189 [lb_av] [facility] BP Diastolic 2018-11-20 00:00:00 60 mm[Hg] [facility] Height 2018-11-20 00:00:00 68 [in_i] [facility] BMI (Body Mass Index) 2018-11-20 00:00:00 27.7 kg/m2 [facility] BP Systolic 2018-11-20 00:00:00 128 mm[Hg] [facility] Body Weight 2018-11-20 00:00:00 182 [lb_av] [facility] BP Diastolic 2017-12-05 00:00:00 76 mm[Hg] [facility] Height 2017-12-05 00:00:00 68 [in_i] [facility] BMI (Body Mass Index) 2017-12-05 00:00:00 26.8 kg/m2 [facility] BP Systolic 2017-12-05 00:00:00 168 mm[Hg] [facility] Body Weight 2017-12-05 00:00:00 176 [lb_av] [facility] BP Diastolic 2017-11-08 00:00:00 90 mm[Hg] [facility] Height 2017-11-08 00:00:00 68 [in_i] [facility] BMI (Body Mass Index) 2017-11-08 00:00:00 27.8 kg/m2 [facility] BP Systolic 2017-11-08 00:00:00 170 mm[Hg] [facility] Body Weight 2017-11-08 00:00:00 183 [lb_av] [facility] BP Diastolic 2017-09-20 00:00:00 98 mm[Hg] [facility] Height 2017-09-20 00:00:00 68 [in_i] [facility] BMI (Body Mass Index) 2017-09-20 00:00:00 27.5 kg/m2 [facility] BP Systolic 2017-09-20 00:00:00 150 mm[Hg] [facility] Body Weight 2017-09-20 00:00:00 181 [lb_av] [facility] BP Diastolic 2017-08-23 00:00:00 80 mm[Hg] [facility] Height 2017-08-23 00:00:00 68 [in_i] [facility] BMI (Body Mass Index) 2017-08-23 00:00:00 27.2 kg/m2 [facility] BP Systolic 2017-08-23 00:00:00 130 mm[Hg] [facility] Body Weight 2017-08-23 00:00:00 179 [lb_av] [facility] BP Diastolic 2017-08-10 00:00:00 66 mm[Hg] [facility] Height 2017-08-10 00:00:00 68 [in_i] [facility] BMI (Body Mass Index) 2017-08-10 00:00:00 27 kg/m2 [facility] BP Systolic 2017-08-10 00:00:00 122 mm[Hg] [facility] Body Weight 2017-08-10 00:00:00 177.6 [lb_av] [facility] BP Diastolic 2017-05-30 00:00:00 74 mm[Hg] [facility] Height 2017-05-30 00:00:00 68 [in_i] [facility] BMI (Body Mass Index) 2017-05-30 00:00:00 27 kg/m2 [facility] BP Systolic 2017-05-30 00:00:00 126 mm[Hg] [facility] Body Weight 2017-05-30 00:00:00 177.6 [lb_av] [facility] BP Diastolic 2017-05-11 00:00:00 80 mm[Hg] [facility] Height 2017-05-11 00:00:00 68 [in_i] [facility] BMI (Body Mass Index) 2017-05-11 00:00:00 27.4 kg/m2 [facility] BP Systolic 2017-05-11 00:00:00 130 mm[Hg] [facility] Body Weight 2017-05-11 00:00:00 180 [lb_av] [facility] BP Diastolic 2017-02-09 00:00:00 82 mm[Hg] [facility] Height 2017-02-09 00:00:00 68 [in_i] [facility] BMI (Body Mass Index) 2017-02-09 00:00:00 28.4 kg/m2 [facility] BP Systolic 2017-02-09 00:00:00 140 mm[Hg] [facility] Body Weight 2017-02-09 00:00:00 187 [lb_av] [facility] Procedures Procedure Date / Time Performed Performing Clinician [facility] e EGD with biopsy 2019-01-13 00:00:00 REMINGTON LOPEZ [facility] Gastrointestinal Surgery 2018-09-03 00:00:00 [facility] X-ray of chest, two views 2018-08-02 00:00:00 VINCENT ASTUDILLO CH [facility] X-ray of chest, two views 2018-05-11 00:00:00 TIMUR MORENO [facility] Computed tomography of chest without contrast 2018-05-11 00:00:0 0 BAL RANKIN [facility] EGD BIOPSY SINGLE/MULTIPLE 2018-05-11 00:00:00 REMINGTON LOPEZ [facility] ESOPH EGD DILATION <30 MM 2018-05-11 00:00:00 REMINGTON LOPEZ [facility] non-vascular ultrasound of extremity 2018-05-04 00:0 0:00 FABIANA RANDHAWA [facility] Computed tomography of chest without contrast 2018-05-03 00:00:0 0 BAL RANKIN [facility] Computed tomography of brain without radiopaque contrast 201 04-10-29 00:00:00 TIMUR MORENO [facility] X-ray of chest, two views 2018-05-01 00:00:00 TIMUR MORENO [facility] Gastrointestinal Surgery 2017-09-03 00:00:00 [facility] DUPLEX SCAN OF EXTRACRANIAL ARTERIES 2017-08-10 00:00:00 [facility] Hernia Repair [facility] olivia Tonsillectomy [facility] olivia Plan of Care Planned Activity Planned Date Details Comments Source Diagnostic Test Pending 2020-03-26 00:00:00 HbA1c (hemoglobi n A1c), blood [code = HbA1c (hemoglobin A1c), blood] [facility] 2020-03-26 00:00:00 microalbumin/cre atinine, mass ratio, urine [code = microalbumin/creatinine, mass ratio, urine] [facility] Diagnostic Test Pending 2020-03-26 00:00:00 lipid panel, ser um [code = lipid panel, serum] [facility] Diagnostic Test Pending 2020-03-26 00:00:00 CMP, serum or pl asma [code = CMP, serum or plasma] [facility] Diagnostic Test Pending 2020-03-26 00:00:00 CBC w/ auto diff [code = CBC w/ auto diff] [facility] Diagnostic Test Pending 2020-03-26 00:00:00 TSH, serum or pl asma [code = TSH, serum or plasma] [facility] Diagnostic Test Pending 2020-03-26 00:00:00 PSA, serum or pl asma [code = PSA, serum or plasma] [facility] Diagnostic Test Pending 2020-03-26 00:00:00 urinalysis, dips tick [code = urinalysis, dipstick] [facility] Instructions [facility] Encounters Start Date/Time End Date/Time Encounter Type [facility] Encounter ID Source 2020-03-26 00:00:00 2020-03-26 00:00:00 Jero Anderson Jr, MD: [id number] [facility] [address], [place] [address], Ph. [facility]_HOU_Hobby [id number] [facility] 2019-12-05 00:00:00 2019-12-05 00:00:00 Jero Anderson Jr, MD: [id number] [facility] [address], [place] [address], Ph. [facility] - _HOU_Hobby [id number] [facility] 2019-08-18 00:00:00 2019-08-18 00:00:00 Jero Anderson Jr, MD: [address], [place] [address], Ph. [facility] - _HOU_Hobby [id number] [facility] 2019-05-26 00:00:00 2019-05-26 00:00:00 Jero Anderson Jr, MD: [address], [place] [address], Ph. [facility] - VFP-Hobby [id number] [facility] 2019-02-19 00:00:00 2019-02-19 00:00:00 Jero Anderson Jr, MD: [address], [place] [address], Ph. [facility] - [facility] [id number] [facility] 2019-01-16 00:00:00 2019-01-16 00:00:00 Jero Anderson Jr, MD: [address], [address], [place] [address], Ph. [facility] [id number] [facility] 2019-01-12 12:34:00 2019-01-13 17:30:00 Discharged Inpatient (obs) 1 JEREMY LIGHT [facility] [id number] [facility] 2018-11-20 00:00:00 2018-11-20 00:00:00 Jero Anderson Jr, MD: [address], [place] [address], Ph. [facility] [id number] [facility] 2018-08-02 09:37:00 2018-08-02 09:37:00 Registered Clinic 3 VINCENT ASTUDILLO [facility] [id number] [facility] 2018-05-11 12:23:00 2018-05-12 18:29:00 Discharged Inpatient (obs) 1 BAL RANKIN [facility] [id number] [facility] 2018-05-02 00:36:00 2018-05-09 17:42:00 Discharged Inpatient 1 BAL RANKIN [facility] [id number] [facility] 2017-12-05 00:00:00 2017-12-05 00:00:00 Jero Anderson Jr, MD: [address], [address], [place] [address], [facility]. [facility] [facility] [id number] [facility] 2017-11-08 00:00:00 2017-11-08 00:00:00 Jero Anderson Jr, MD: [address], [address], [place] [address], Ph. [facility] - [facility] [id number] [facility] 2017-09-20 00:00:00 2017-09-20 00:00:00 Jero Anderson Jr, MD: [address], [place] [address], Ph. [facility] - [facility] [id number] [facility] Practice 2017-08-23 00:00:00 2017-08-23 00:00:00 Jero Anderson Jr, MD: [address], [place] [address], Ph. [facility] - [facility] [id number] [facility] Practice 2017-08-10 00:00:00 2017-08-10 00:00:00 Jero Anderson Jr, MD: [address], [place] [address], Ph. [facility] - [facility] [id number] [facility] Practice 2017-05-30 00:00:00 2017-05-30 00:00:00 Nadine Simmons MD: [address], [place] [address], Ph. [facility]obby [id number] [facility] 2017-05-11 00:00:00 2017-05-11 00:00:00 Caron Brown MD: [address], [place] [address], Ph. [facility]-Hobby [id number] [facility] 2017-02-09 00:00:00 2017-02-09 00:00:00 Jero Anderson Jr, MD: [address], [place] [address], Ph. [facility] [id number] [facility] 2013-01-31 07:01:32 2013-01-31 07:01:14 [facility] [id number] 2013-01-03 06:18:32 2013-01-03 06:18:14 [facility] [id number] Results Test Description Test Time Test Comments Results Result Comments Source Glucose [Mass/volume] in Capillary blood 2019-01-16 11:48:00 Test Item Blood Glucose: mg/dl (test code = Blood Glucose: mg/dl) [facility] Jzuxq6923-07-74 06:56:00* Test Item Value Reference Range Interpretation Comments Sodium Level (test code = 2951-2) 141 136-145 [facility]ennialPotassium Uzyeh3021-93-50 06:56:00* Test Item Value Reference Range Interpretation Comments Potassium Level (test code = 2823-3) 4.3 3.5-5.1 [facility] CentennialChloride Rspen9632-26-86 06:56:00* Test Item Value Reference Range Interpretation Comments Chloride Level (test code = 2075-0) 114 98-107 H [facility] CentennialCarbon Dioxide Modxe3912-46-00 06:56:00* Test Item Value Reference Range Interpretation Comments Carbon Dioxide Level (test code = 2028-9) 20 22-29 L [facility] CentennialAnion Bgo7475-56-12 06:56:00* Test Item Value Reference Range Interpretation Comments Anion Gap (test code = 64946-8) 11.3 8-16 [facility] CentennialBlood Urea Uliwppib0658-98-41 06:56:00* Test Item Value Reference Range Interpretation Comments Blood Urea Nitrogen (test code = 3094-0) 25 7-26 [facility] CentennialCreatinine2019-05-13 06:56:00* Test Item Value Reference Range Interpretation Comments Creatinine (test code = 2160-0) 1.30 0.72-1.25 H [facility] CentennialBUN/Creatinine Hiyub3472-48-73 06:56:00* Test Item Value Reference Range Interpretation Comments BUN/Creatinine Ratio (test code = 3097-3) 19 6-25 [facility] CentennialEstimat Glomerular Filtration Rate 2019-01-13 06:56:00* Test Item Value Reference Range Interpretation Comments Estimat Glomerular Filtration Rate (test code = 289165518) 52 >60 L Ranges were taken from the National Kidney Disease Education Program and the [facility] Kidney Foundation literature.Reference ranges:60 or greater: Enreap28-99 ( for 3 consecutive months): Chronic kidney disease 15 or less: Kidney failureBaylor Scott & [facility] Center – CentennialGlucose Njnoo1608-78-26 06:56:00* Test Item Value Reference Range Interpretation Comments Glucose Level (test code = PSY8971) 84 74-118 [facility] CentennialCalcium Fwnhn5873-40-16 06:56:00* Test Item Value Reference Range Interpretation Comments Calcium Level (test code = 18271-3) 8.6 8.4-10.2 [facility] CentennialTotal Hlbkjomut4935-54-09 06:56:00* Test Item Value Reference Range Interpretation Comments Total Bilirubin (test code = 1975-2) 1.0 0.2-1.2 [facility] CentennialAspartate Amino Transf (AST/SGOT) 2019-01-13 06:56:00* Test Item Value Reference Range Interpretation Comments Aspartate Amino Transf (AST/SGOT) (test code = Aspartate Amino Transf (AST/SGOT)) 21 5-34 [facility] CentennialAlanine Aminotransferase (ALT/SGPT) 2019-01-13 06:56:00* Test Item Value Reference Range Interpretation Comments Alanine Aminotransferase (ALT/SGPT) (test code = 1742-6) 24 0-55 [facility] CentennialTotal Mgacdhv1457-61-07 06:56:00* Test Item Value Reference Range Interpretation Comments Total Protein (test code = 2885-2) 5.9 6.5-8.1 L [facility] CentennialAlbumin2019-05-13 06:56:00* Test Item Value Reference Range Interpretation Comments Albumin (test code = 1751-7) 3.2 3.5-5.0 L [facility] CentennialGlobulin2019-05-13 06:56:00* Test Item Value Reference Range Interpretation Comments Globulin (test code = 81579-9) 2.7 2.3-3.5 [facility] CentennialAlbumin/Globulin Uwmjc8022-88-86 06:56:00 * Test Item Value Reference Range Interpretation Comments Albumin/Globulin Ratio (test code = 1759-0) 1.2 0.8-2.0 [facility] CentennialAlkaline Wuzezowoaig5064-86-47 06:56:00* Test Item Value Reference Range Interpretation Comments Alkaline Phosphatase (test code = 6768-6) 45 40-150 [facility] CentennialTriglycerides Aeoeo9901-11-97 06:56:00* Test Item Value Reference Range Interpretation Comments Triglycerides Level (test code = 2571-8) 86 0-149 [facility] CentennialCholesterol Prmnf6970-13-17 06:56:00* Test Item Value Reference Range Interpretation Comments Cholesterol Level (test code = 2093-3) 107 0-199 Less than 200 mg/dL Low Ilcq106 - 239 mg/dL Borderline Fikm530 m g/dl and greater High Risk [facility] CentennialLDL Lmvbmcijmiv7356-71-05 06:56:00* Test Item Value Reference Range Interpretation Comments LDL Cholesterol (test code = 2089-1) 51 60-130 L [facility] CentennialHDL Sdnchhxknsn1122-28-28 06:56:00* Test Item Value Reference Range Interpretation Comments HDL Cholesterol (test code = 2085-9) 39 40-60 L [facility] CentennialCholesterol/HDL Rubhf5955-98-55 06:56:00 * Test Item Value Reference Range Interpretation Comments Cholesterol/HDL Ratio (test code = 9830-1) 2.7 3.9-4.7 L [facility] CentennialCreatine Oriqhg2253-54-89 06:52:00* Test Item Value Reference Range Interpretation Comments Creatine Kinase (test code = 2157-6) 89 30-200 [facility] CentennialCreatine Kinase LV0537-47-99 06:43:00* Test Item Value Reference Range Interpretation Comments Creatine Kinase MB (test code = 13815-6) 2.40 0-5.0 [facility] CentennialTroponin K4774-55-09 06:43:00* Test Item Value Reference Range Interpretation Comments Troponin I (test code = VBG3039) 0.014 0-0.300 [facility] CentennialWhite Blood Vpcon0759-18-59 06:25:00* Test Item Value Reference Range Interpretation Comments White Blood Count (test code = 6690-2) 8.53 4.8-10.8 [facility] CentennialRed Blood Bnlxj3899-17-02 06:25:00* Test Item Value Reference Range Interpretation Comments Red Blood Count (test code = 789-8) 4.00 4.3-5.7 L [facility] CentennialHemoglobin2019-05-13 06:25:00* Test Item Value Reference Range Interpretation Comments Hemoglobin (test code = 60296-7) 12.7 14.0-18.0 L [facility] CentennialHematocrit2019-05-13 06:25:00* Test Item Value Reference Range Interpretation Comments Hematocrit (test code = 4544-3) 38.5 38.2-49.6 [facility] CentennialMean Corpuscular Mhgizf0253-39-28 06:25:00* Test Item Value Reference Range Interpretation Comments Mean Corpuscular Volume (test code = 787-2) 96.3 81-99 [facility] CentennialMean Corpuscular Qtjwsnmczr7646-87-65 06:25:00* Test Item Value Reference Range Interpretation Comments Mean Corpuscular Hemoglobin (test code = 785-6) 31.8 28-32 [facility] CentennialMean Corpuscular Hemoglobin Concent 2019-01-13 06:25:00* Test Item Value Reference Range Interpretation Comments Mean Corpuscular Hemoglobin Concent (test code = 786-4) 33.0 31-35 [facility] CentennialRed Cell Distribution Mcero5120-64-15 06:25:00* Test Item Value Reference Range Interpretation Comments Red Cell Distribution Width (test code = 56230-3) 13.6 11.7 -14.4 [facility] CentennialPlatelet Lkjhi4614-93-46 06:25:00* Test Item Value Reference Range Interpretation Comments Platelet Count (test code = 777-3) 191 140-360 [facility] CentennialNeutrophils (%) (Auto)2019-01-13 06:25:00 * Test Item Value Reference Range Interpretation Comments Neutrophils (%) (Auto) (test code = 17344-5) 67.3 38.7-80.0 [facility] CentennialLymphocytes (%) (Auto)2019-01-13 06:25:00 * Test Item Value Reference Range Interpretation Comments Lymphocytes (%) (Auto) (test code = 736-9) 19.0 18.0-39.1 [facility] CentennialMonocytes (%) (Auto)2019-01-13 06:25:00* Test Item Value Reference Range Interpretation Comments Monocytes (%) (Auto) (test code = 5905-5) 10.1 4.4-11.3 [facility] CentennialEosinophils (%) (Auto)2019-01-13 06:25:00 * Test Item Value Reference Range Interpretation Comments Eosinophils (%) (Auto) (test code = 713-8) 2.3 0.0-6.0 [facility] CentennialBasophils (%) (Auto)2019-01-13 06:25:00* Test Item Value Reference Range Interpretation Comments Basophils (%) (Auto) (test code = 706-2) 0.6 0.0-1.0 [facility] CentennialIM GRANULOCYTES %2019-01-13 06:25:00* Test Item Value Reference Range Interpretation Comments IM GRANULOCYTES % (test code = IM GRANULOCYTES %) 0.7 0.0- 1.0 [facility] CentennialNeutrophils # (Auto)2019-01-13 06:25:00* Test Item Value Reference Range Interpretation Comments Neutrophils # (Auto) (test code = 751-8) 5.7 2.1-6.9 [facility] CentennialLymphocytes # (Auto)2019-01-13 06:25:00* Test Item Value Reference Range Interpretation Comments Lymphocytes # (Auto) (test code = 28636-8) 1.6 1.0-3.2 [facility] CentennialMonocytes # (Auto)2019-01-13 06:25:00* Test Item Value Reference Range Interpretation Comments Monocytes # (Auto) (test code = 742-7) 0.9 0.2-0.8 H [facility] CentennialEosinophils # (Auto)2019-01-13 06:25:00* Test Item Value Reference Range Interpretation Comments Eosinophils # (Auto) (test code = 711-2) 0.2 0.0-0.4 [facility] CentennialBasophils # (Auto)2019-01-13 06:25:00* Test Item Value Reference Range Interpretation Comments Basophils # (Auto) (test code = 704-7) 0.1 0.0-0.1 [facility] CentennialAbsolute Immature Granulocyte (auto 2019-01-13 06:25:00* Test Item Value Reference Range Interpretation Comments Absolute Immature Granulocyte (auto (jenny t code = Absolute Immature Granulocyte (auto) 0.06 0-0.1 [facility] CentennialActivated Partial Thromboplast Time 2019-01-12 12:46:00* Test Item Value Reference Range Interpretation Comments Activated Partial Thromboplast Time (test code = 56987-9) 26.2 23.8-35.5 [facility] CentennialProthrombin Sism6896-94-03 12:45:00* Test Item Value Reference Range Interpretation Comments Prothrombin Time (test code = 5902-2) 13.0 11.9-14.5 [facility] CentennialProthromb Time International Ratio 2019-01-12 12:45:00* Test Item Value Reference Range Interpretation Comments Prothromb Time International Ratio (test code = 6301-6) 0.93 Oral Anticoagulant Therapy INR Values:1. Low Intensity Therapy 1.5 - 2.02 . Moderate Intensity Therapy 2.0 - 3.03. High Intensity Therapy(1) 2.5 - 3. 54. High Intensity Therapy(2) 3.0 - 4.05. Panic Value INR > 5.0 [facility] CentennialCHEST SINGLE (PORTABLE)2019-01-12 11:20:00 [facility] [address] [place] [address] Patient Name: DEMOND ORTIZ MR #: [id number] : 1935 Age/Sex: 83/M Req #: [id number] Adm Physician: Ordered by: JEREMY LIGHT MD Report #: [id number] Location: ER Room/Bed: Procedure: [id number] DX/CHES T SINGLE (PORTABLE) Exam Date: 01/12/19 Exam Time: 1 110 REPORT STATUS: Signed EXAMIN ATION: CHEST SINGLE (PORTABLE) COMPARISON: Chest x-ray 08/02/2018 INDICATION: Difficulty swallowing, chest pain Chest pain, look for CHF, enl arge Mediastinum 20190112 DISCUSSION: Frontal view of the est obtained at 1110 hours. HEART AND MEDIASTINUM: The heart is top normal in size and stable. The aorta is tortuous. The esophagus is collapsed. LINES: None. LUNGS: Diffuse hyperinflation. Mild central vascular promin ence is similar. Reticulation in the upper lobes is stable. No confluent infil trates. No evidence of CHF. PLEURA: No pleural effusion or pneumothorax. BONES AND SOFT TISSUES: No focal osseous lesion. The soft tissues are nor mal. IMPRESSION: Stable pulmonary hyperinflation and upper lobe retic ulation, suggestive of fibrosis. No evidence of CHF. Signed by: Dr. Cristiano Segura MD on 01/12/2019 11:22 AM Dictated By: ANNA SEGURA MD 21 Transcribed By : LUCI on 01/12/191121 COPY TO: JEREMY LIGHT MD CHEST 2 DEWUQ2577-43-81 10:13:00 [place] [address] Patient Name: DEMOND ORTIZ MR #: [id number] : 1935 Age/Sex: 83/M Req #: [id number] Adm Physician: Ordered by: VINCENT ASTUDILLO MD Report #: [id number] Location: RAD Room/Bed: Procedure: [id number] DX/KELSY ST 2 VIEWS Exam Date: Exam Time: REPORT STATUS: Signed PROCEDURE: X-RAY CHEST, TWO VIEWS COMPARISON: 2 view chest 05/11/2018, CT chest without contrast 05/11/2018. INDICATIONS: COPD FINDINGS: Advanced upper lobe predominant emph ysematous changes are again noted seen to better advantage on comparison CT. Scattered foci of fibrosis in the periphery of the right upper lobe and bilat eral lower lobes are grossly unchanged . No superimposed airspace consolidat ion. No pleural effusion or pneumothorax. Stable cardiomediastinal cont our with tortuosity and atherosclerotic calcification of the thoracic aorta. Normal heart size and pulmonary vasculature. Regional skeletal structur es are grossly intact. CONCLUSION: No acute cardiopulmonary abnormali ty. Stable findings of COPD with superimposed fibrosis. Dictated by : Kyle Kang M.D. on 08/02/2018 at 10:13 Electronically approved by: Wayne Kang M.D. on 08/02/2018 at 10:13 Dictated By: KYLE KANG MD 1013 Transcribed By : JABARI on 08/02/18 1013 COPY TO: VINCENT ASTUDILLO MD Sodium Level 2018-05-12 05:32:00* Test Item Value Reference Range Interpretation Comments Sodium Level (test code = 2951-2) 141 136-145 [facility] CentennialPotassium Huyig4913-80-32 05:32:00* Test Item Value Reference Range Interpretation Comments Potassium Level (test code = 2823-3) 4.4 3.5-5.1 [facility] CentennialChloride Chdec1960-22-24 05:32:00* Test Item Value Reference Range Interpretation Comments Chloride Level (test code = 2075-0) 109 98-107 H [facility] CentennialCarbon Dioxide Zcjno2634-48-27 05:32:00* Test Item Value Reference Range Interpretation Comments Carbon Dioxide Level (test code = 2028-9) 21 22-29 L [facility] CentennialAnion Udh9921-94-93 05:32:00* Test Item Value Reference Range Interpretation Comments Anion Gap (test code = 01393-7) 15.4 8-16 [facility] CentennialBlood Urea Gcrzitoe8217-21-65 05:32:00* Test Item Value Reference Range Interpretation Comments Blood Urea Nitrogen (test code = 3094-0) 26 7-26 [facility] CentennialCreatinine2018-09-09 05:32:00* Test Item Value Reference Range Interpretation Comments Creatinine (test code = 2160-0) 1.33 0.72-1.25 H [facility] CentennialBUN/Creatinine Xesup9423-56-16 05:32:00* Test Item Value Reference Range Interpretation Comments BUN/Creatinine Ratio (test code = 3097-3) 20 6-25 [facility] CentennialEstimat Glomerular Filtration Rate 2018-05-12 05:32:00* Test Item Value Reference Range Interpretation Comments Estimat Glomerular Filtration Rate (test code = 17299-8) 51 >60 L Ranges were taken from the National Kidney Disease Education Program and the [facility] Kidney Foundation literature.Reference ranges:60 or greater: Wjvzmf34-17 ( for 3 consecutive months): Chronic kidney disease 15 or less: Kidney failureBaylor Scott & White Medical Center – CentennialGlucose Xjlac1060-73-54 05:32:00* Test Item Value Reference Range Interpretation Comments Glucose Level (test code = BEY5824) 143 74-118 H [facility] CentennialCalcium Jzjrp6119-52-52 05:32:00* Test Item Value Reference Range Interpretation Comments Calcium Level (test code = 60647-2) 9.1 8.4-10.2 [facility] CentennialWhite Blood Tihye2430-94-34 05:18:00* Test Item Value Reference Range Interpretation Comments White Blood Count (test code = 6690-2) 9.51 4.8-10.8 [facility] CentennialRed Blood Yhuvr0883-01-94 05:18:00* Test Item Value Reference Range Interpretation Comments Red Blood Count (test code = 789-8) 4.00 4.3-5.7 L [facility] CentennialHemoglobin2018-09-09 05:18:00* Test Item Value Reference Range Interpretation Comments Hemoglobin (test code = 09994-5) 12.6 14.0-18.0 L [facility] CentennialHematocrit2018-09-09 05:18:00* Test Item Value Reference Range Interpretation Comments Hematocrit (test code = 4544-3) 37.8 38.2-49.6 L [facility] CentennialMean Corpuscular Tdnojq1298-12-68 05:18:00* Test Item Value Reference Range Interpretation Comments Mean Corpuscular Volume (test code = 787-2) 94.5 81-99 [facility] CentennialMean Corpuscular Xsebtlxsgo6925-44-55 05:18:00* Test Item Value Reference Range Interpretation Comments Mean Corpuscular Hemoglobin (test code = 785-6) 31.5 28-32 [facility] CentennialMean Corpuscular Hemoglobin Concent 2018-05-12 05:18:00* Test Item Value Reference Range Interpretation Comments Mean Corpuscular Hemoglobin Concent (test code = 786-4) 33.3 31-35 [facility] CentennialRed Cell Distribution Boraz0682-25-11 05:18:00* Test Item Value Reference Range Interpretation Comments Red Cell Distribution Width (test code = 99561-9) 13.2 11.7 -14.4 [facility] CentennialPlatelet Awkwe0896-84-39 05:18:00* Test Item Value Reference Range Interpretation Comments Platelet Count (test code = 777-3) 276 140-360 [facility] CentennialNeutrophils (%) (Auto)2018-05-12 05:18:00 * Test Item Value Reference Range Interpretation Comments Neutrophils (%) (Auto) (test code = 71810-5) 86.8 38.7-80.0 H [facility] CentennialLymphocytes (%) (Auto)2018-05-12 05:18:00 * Test Item Value Reference Range Interpretation Comments Lymphocytes (%) (Auto) (test code = 736-9) 9.6 18.0-39.1 L [facility] CentennialMonocytes (%) (Auto)2018-05-12 05:18:00* Test Item Value Reference Range Interpretation Comments Monocytes (%) (Auto) (test code = 5905-5) 1.9 4.4-11.3 L [facility] CentennialEosinophils (%) (Auto)2018-05-12 05:18:00 * Test Item Value Reference Range Interpretation Comments Eosinophils (%) (Auto) (test code = 713-8) 0.0 0.0-6.0 [facility] CentennialBasophils (%) (Auto)2018-05-12 05:18:00* Test Item Value Reference Range Interpretation Comments Basophils (%) (Auto) (test code = 706-2) 0.2 0.0-1.0 [facility] CentennialIM GRANULOCYTES %2018-05-12 05:18:00* Test Item Value Reference Range Interpretation Comments IM GRANULOCYTES % (test code = IM GRANULOCYTES %) 1.5 0.0- 1.0 H [facility] CentennialNeutrophils # (Auto)2018-05-12 05:18:00* Test Item Value Reference Range Interpretation Comments Neutrophils # (Auto) (test code = 751-8) 8.3 2.1-6.9 H [facility] CentennialLymphocytes # (Auto)2018-05-12 05:18:00* Test Item Value Reference Range Interpretation Comments Lymphocytes # (Auto) (test code = 43065-3) 0.9 1.0-3.2 L [facility] CentennialMonocytes # (Auto)2018-05-12 05:18:00* Test Item Value Reference Range Interpretation Comments Monocytes # (Auto) (test code = 742-7) 0.2 0.2-0.8 [facility] CentennialEosinophils # (Auto)2018-05-12 05:18:00* Test Item Value Reference Range Interpretation Comments Eosinophils # (Auto) (test code = 711-2) 0.0 0.0-0.4 [facility] CentennialBasophils # (Auto)2018-05-12 05:18:00* Test Item Value Reference Range Interpretation Comments Basophils # (Auto) (test code = 704-7) 0.0 0.0-0.1 [facility] CentennialAbsolute Immature Granulocyte (auto 2018-05-12 05:18:00* Test Item Value Reference Range Interpretation Comments Absolute Immature Granulocyte (auto (jenny t code = Absolute Immature Granulocyte (auto) 0.14 0-0.1 H [facility] CentennialCT CHEST [id number] 17:12:00 [place] [address] Patient Name: DEMOND ORTIZ MR #: [id number] : Age/Sex: 82/M Req #: [id number] Adm Physician: BAL THOMPSON MD Ordered by: BAL RANKIN MD Report #: [id number] Location: [facility] Room/Bed: [place] [address]-1 Procedure: [id number] CT/CT CHEST WO Exam Date: 05/11/18 Exam Time: 1558 REPORT STATUS: Signed EXAMINATION: CT scan of the chest without contrast. SURY HNIQUE: Spiral CT images of the chest were performed from the lung apices to t he level of the adrenal glands. No intravenous contrast was administered per physician's request. Coronal and sagittal reformatted images were obtained. COMPARISON: CT chest 03/02 CLINICAL HISTORY:Shortness of breath, pne umonia DISCUSSION: ABSENCE OF INTRAVENOUS CONTRAST DECREASES SENSITIVITY FOR DETECTION OF FOCAL LESIONS AND VASCULAR PATHOLOGY. LINES/TUBES: None . LUNGS AND AIRWAYS: No interval change in marked bilateral centrilobular and paraseptal emphysematous changes, as well as bilateral cystic changes. U nchanged bilateral subpleural reticulation, architectural distortion and septa l thickening, consistent with fibrotic changes. Stable mild central bilateral ectatic changes. Slight improvement in bilateral lower lobe groundglass opacit ies. No consolidation or pulmonary masses. The airways are clear, without en dobronchial lesions. PLEURA: Trace left pleural effusion, which is stable. Interval resolution of previously visualized trace right pleural effusion. HEART AND MEDIASTINUM: Stable 1.4 cm hypodense lesion in the left thyroid lob e (series 2, image 16). Bilateral enlargement. Trace pericardial effusion. A therosclerotic calcification of the coronary arteries, aortic valves and thora cic aorta. Main pulmonary artery is normal in caliber. LYMPH NODES: No medi astinal, hilar or axillary adenopathy. ABDOMEN: Limited unenhanced views of the upper abdomen show no abnormality within the visualized liver, spleen, pa ncreas, or kidneys. The right adrenal gland is unremarkable. Thickening of the left adrenal gland, without discrete focal lesions suggesting hyperplasia. BONES AND SOFT TISSUES: Multilevel degenerative disc changes in the thoracic spine. IMPRESSION: 1. No significant interval change in marked bilateral centrilobular emphysematous and paraseptal emphysematous changes. St able bilateral cystic changes, likely secondary to emphysema. 2. Slight i mprovement in bilateral lower lobe groundglass opacities. No consolidation or pulmonary masses. 3. Stable trace left pleural effusion. Interval resolution o f previously visualized trace right pleural effusion. 4. Stable cardiomegaly Signed by: Dr. Jeremias Conte M.D. on 05/11/2018 5:19 PM Dictated By: JEREMIAS CONTE MD 18 Transcribed By: LUCI on 05/11/181718 COPY TO: BAL RANKIN MD CHEST 2 [id number] 11:36:00 [place] [address] Patient Name: DEMOND ORTIZ MR #: [id number] : 1935 Age/Sex: 82/M Req #: [id number] Adm Physician: Ordered by: TIMUR MORENO MD Report #: [id number] Location: ER Room/Bed: Procedure: [id number] DX/CHEST 2 VIEWS Exam Date: Exam Time: 1053 REPORT STATUS: Signed EXAMINATION: PA and lateral views of the chest. COMPARISON: Chest CT CLINICAL HISTORY: Follow-up right lower lobe pneumonia D ISCUSSION: Lines/tubes: None. Lungs: Lungs are well inflated. Increa sed lucency in the upper lungs, consistent with edematous changes. Coarsening of the interstitium, predominantly noted in the lower lungs and lateral right upper lung, consistent with previously visualized fibrotic changes. No consoli dation. Pleura: There is no pleural effusion or pneumothorax. Heart a nd mediastinum: Cardiomediastinal silhouette is unremarkable. Pulmonary va sculature is normal. Bones and soft tissues: No acute bony abnormalities. Degenerative changes in the thoracic spine IMPRESSION: No consolidati on or effusion. Stable emphysematous and fibrotic changes. Si gned by: Dr. Jeremias Conte M.D. on 05/11/2018 11:40 AM Dictated By: BHUPINDER CONTE MD 1140 T ranscribed By: LUCI on 05/11/18 1140 COPY TO: TIMUR MORENO MD Total Mjvmajhnm6702-85-66 11:09:00* Test Item Value Reference Range Interpretation Comments Total Bilirubin (test code = 1975-2) 0.8 0.2-1.2 [facility]ennialAspartate Amino Transf (AST/SGOT) 2018-05-11 11:09:00* Test Item Value Reference Range Interpretation Comments Aspartate Amino Transf (AST/SGOT) (test code = Aspartate Amino Transf (AST/SGOT)) 36 5-34 H [facility]ennialAlanine Aminotransferase (ALT/SGPT) 2018-05-11 11:09:00* Test Item Value Reference Range Interpretation Comments Alanine Aminotransferase (ALT/SGPT) (test code = 1742-6) 53 0-55 [facility]ennialTotal Daztcan7155-12-40 11:09:00* Test Item Value Reference Range Interpretation Comments Total Protein (test code = 2885-2) 7.1 6.5-8.1 [facility] CentennialAlbumin2018-09-08 11:09:00* Test Item Value Reference Range Interpretation Comments Albumin (test code = 1751-7) 3.4 3.5-5.0 L [facility] CentennialGlobulin2018-09-08 11:09:00* Test Item Value Reference Range Interpretation Comments Globulin (test code = 16316-8) 3.7 2.3-3.5 H [facility]ennialAlbumin/Globulin Tvuql3721-78-95 11:09:00 * Test Item Value Reference Range Interpretation Comments Albumin/Globulin Ratio (test code = 1759-0) 0.9 0.8-2.0 [facility]ennialAlkaline Abxcktyvjkg6799-85-81 11:09:00* Test Item Value Reference Range Interpretation Comments Alkaline Phosphatase (test code = 6768-6) 50 40-150 [facility] CentennialBlood Mybzuoj2193-93-80 11:42:00* Test Item Value Reference Range Interpretation Comments Blood Culture (test code = 10243442) NO GROWTH AFTER 5 DAYS, FINAL REPORT [facility] Iegpxbg3730-35-01 11:42:00* Test Item Value Reference Range Interpretation Comments Blood Culture (test code = 23521967) NO GROWTH AFTER 5 DAYS, FINAL REPORT [facility] Zhppcbe7087-16-43 11:42:00* Test Item Value Reference Range Interpretation Comments Blood Culture (test code = 35971651) NO GROWTH AFTER 5 DAYS, FINAL REPORT [facility] CentennialClostridium Difficile Toxin A & B 2018-05-09 09:18:00* Test Item Value Reference Range Interpretation Comments Clostridium Difficile Toxin A & B (test code = 181011824) NEGATIVE NEGATIVE Testing on stool aspirate specimens is outside truck operator claims since specime n type not validated on this assay.[facility] Clostridium Difficile Toxin A & K9637-72-47 09:18:00* Test Item Value Reference Range Interpretation Comments Clostridium Difficile Toxin A & B (test code = 918192813) NEGATIVE NEGATIVE Testing on stool aspirate specimens is outside truck operator claims since specime n type not validated on this assay.[facility] Clostridium Difficile Toxin A & X2407-43-86 09:18:00* Test Item Value Reference Range Interpretation Comments Clostridium Difficile Toxin A & B (test code = 813114258) NEGATIVE NEGATIVE Testing on stool aspirate specimens is outside truck operator claims since specime n type not validated on this assay.[facility] Guuxk4331-88-24 05:25:00* Test Item Value Reference Range Interpretation Comments Sodium Level (test code = 2951-2) 139 136-145 [facility]ennialPotassium Jpbyx7309-71-18 05:25:00* Test Item Value Reference Range Interpretation Comments Potassium Level (test code = 2823-3) 4.0 3.5-5.1 [facility]ennialChloride Tsmyf1877-62-47 05:25:00* Test Item Value Reference Range Interpretation Comments Chloride Level (test code = 2075-0) 109 98-107 H [facility] CentennialCarbon Dioxide Wnppo2745-01-84 05:25:00* Test Item Value Reference Range Interpretation Comments Carbon Dioxide Level (test code = 2028-9) 19 22-29 L [facility] CentennialAnion Tsc9590-82-66 05:25:00* Test Item Value Reference Range Interpretation Comments Anion Gap (test code = 66622-1) 15.0 8-16 [facility]ennialBlood Urea Mdqhpdjp7072-93-10 05:25:00* Test Item Value Reference Range Interpretation Comments Blood Urea Nitrogen (test code = 3094-0) 16 7-26 [facility] CentennialCreatinine2018-09-04 05:25:00* Test Item Value Reference Range Interpretation Comments Creatinine (test code = 2160-0) 1.28 0.72-1.25 H [facility]ennialBUN/Creatinine Hbjlb3940-21-09 05:25:00* Test Item Value Reference Range Interpretation Comments BUN/Creatinine Ratio (test code = 3097-3) 13 6-25 [facility] CentennialEstimat Glomerular Filtration Rate 2018-05-07 05:25:00* Test Item Value Reference Range Interpretation Comments Estimat Glomerular Filtration Rate (test code = 54437-7) 54 >60 L Ranges were taken from the National Kidney Disease Education Program and the [place] [facility] Foundation literature.Reference ranges:60 or greater: Iqimqv92-30 ( for 3 consecutive months): Chronic kidney disease 15 or less: Kidney failureBaylor Scott & White Medical Center – CentennialGlucose Fztdu9271-44-10 05:25:00* Test Item Value Reference Range Interpretation Comments Glucose Level (test code = VKQ0409) 98 74-118 [facility] CentennialCalcium Yxiap2753-48-07 05:25:00* Test Item Value Reference Range Interpretation Comments Calcium Level (test code = 07933-3) 8.7 8.4-10.2 [facility] CentennialWhite Blood Ehiya3583-60-88 05:01:00* Test Item Value Reference Range Interpretation Comments White Blood Count (test code = 6690-2) 10.03 4.8-10.8 [facility] CentennialRed Blood Vpmit6006-22-16 05:01:00* Test Item Value Reference Range Interpretation Comments Red Blood Count (test code = 789-8) 3.93 4.3-5.7 L [facility] CentennialHemoglobin2018-09-04 05:01:00* Test Item Value Reference Range Interpretation Comments Hemoglobin (test code = 35085-7) 12.5 14.0-18.0 L [facility] CentennialHematocrit2018-09-04 05:01:00* Test Item Value Reference Range Interpretation Comments Hematocrit (test code = 4544-3) 36.8 38.2-49.6 L [facility] CentennialMean Corpuscular Fdxgmp7552-94-81 05:01:00* Test Item Value Reference Range Interpretation Comments Mean Corpuscular Volume (test code = 787-2) 93.6 81-99 [facility] CentennialMean Corpuscular Oiagpyxole9357-10-91 05:01:00* Test Item Value Reference Range Interpretation Comments Mean Corpuscular Hemoglobin (test code = 785-6) 31.8 28-32 [facility] CentennialMean Corpuscular Hemoglobin Concent 2018-05-07 05:01:00* Test Item Value Reference Range Interpretation Comments Mean Corpuscular Hemoglobin Concent (test code = 786-4) 34.0 31-35 [facility] CentennialRed Cell Distribution Ojwyq3141-66-73 05:01:00* Test Item Value Reference Range Interpretation Comments Red Cell Distribution Width (test code = 38412-8) 13.8 11.7 -14.4 [facility] CentennialPlatelet Vzhfs0434-88-70 05:01:00* Test Item Value Reference Range Interpretation Comments Platelet Count (test code = 777-3) 218 140-360 [facility] CentennialNeutrophils (%) (Auto)2018-05-07 05:01:00 * Test Item Value Reference Range Interpretation Comments Neutrophils (%) (Auto) (test code = 26766-5) 73.3 38.7-80.0 [facility] CentennialLymphocytes (%) (Auto)2018-05-07 05:01:00 * Test Item Value Reference Range Interpretation Comments Lymphocytes (%) (Auto) (test code = 736-9) 12.1 18.0-39.1 L [facility] CentennialMonocytes (%) (Auto)2018-05-07 05:01:00* Test Item Value Reference Range Interpretation Comments Monocytes (%) (Auto) (test code = 5905-5) 9.4 4.4-11.3 [facility] CentennialEosinophils (%) (Auto)2018-05-07 05:01:00 * Test Item Value Reference Range Interpretation Comments Eosinophils (%) (Auto) (test code = 713-8) 3.6 0.0-6.0 [facility] CentennialBasophils (%) (Auto)2018-05-07 05:01:00* Test Item Value Reference Range Interpretation Comments Basophils (%) (Auto) (test code = 706-2) 0.3 0.0-1.0 [facility] CentennialIM GRANULOCYTES %2018-05-07 05:01:00* Test Item Value Reference Range Interpretation Comments IM GRANULOCYTES % (test code = IM GRANULOCYTES %) 1.3 0.0- 1.0 H [facility] CentennialNeutrophils # (Auto)2018-05-07 05:01:00* Test Item Value Reference Range Interpretation Comments Neutrophils # (Auto) (test code = 751-8) 7.4 2.1-6.9 H [facility] CentennialLymphocytes # (Auto)2018-05-07 05:01:00* Test Item Value Reference Range Interpretation Comments Lymphocytes # (Auto) (test code = 44210-1) 1.2 1.0-3.2 [facility] CentennialMonocytes # (Auto)2018-05-07 05:01:00* Test Item Value Reference Range Interpretation Comments Monocytes # (Auto) (test code = 742-7) 0.9 0.2-0.8 H [facility]ennialEosinophils # (Auto)2018-05-07 05:01:00* Test Item Value Reference Range Interpretation Comments Eosinophils # (Auto) (test code = 711-2) 0.4 0.0-0.4 [facility]ennialBasophils # (Auto)2018-05-07 05:01:00* Test Item Value Reference Range Interpretation Comments Basophils # (Auto) (test code = 704-7) 0.0 0.0-0.1 [facility] CentennialAbsolute Immature Granulocyte (auto 2018-05-07 05:01:00* Test Item Value Reference Range Interpretation Comments Absolute Immature Granulocyte (auto (jenny t code = Absolute Immature Granulocyte (auto) 0.13 0-0.1 H [facility] CentennialVancomycin Level Ghfxzc5116-16-32 01:46:00* Test Item Value Reference Range Interpretation Comments Vancomycin Level Trough (test code = 4092-3) 10.5 5.0-10.0 HH Results called to ADEN CEE RN at 0145 on 05/07/18 by Bailee Abarca. SCARLETT SOLIZ [facility] CentennialVancomycin Level Jzxzto6020-05-38 01:46:00* Test Item Value Reference Range Interpretation Comments Vancomycin Level Trough (test code = 4092-3) 10.5 5.0-10.0 HH Results called to ADEN CEE RN at 0145 on 05/07/18 by Bailee Abarca. SCARLETT SOLIZ [facility] CentennialVancomycin Level Rkavix9257-30-65 01:46:00* Test Item Value Reference Range Interpretation Comments Vancomycin Level Trough (test code = 4092-3) 10.5 5.0-10.0 HH Results called to ADEN CEE RN at 0145 on 05/07/18 by Bailee Abarca. SCARLETT MOMIN. [facility] EXTREMITY CABAN WVE-AHC1368-95-01 14:22:00 [place] [address] Patient Name: DEMOND ORTIZ MR #: [id number] : 1935 Age/Sex: 82/M Req #: [id number] Adm Physician: BAL RANKIN MD Ordered by: FABIANA RANDHAWA MD Report #: [id number] Location: MED/SURG2 Room/Bed: [facility] Procedure: [id number] US/US EXTREMITY CABAN NON-VAS Exam Date: 05/04/18 Exam Time: 1228 REPORT STATUS: Signed EXAM: US EXTREMITY CABAN NON-VAS INDICATION : COMPARISON: None TECHNIQUE: Transverse and sagittal images were performed of the right elbow soft tissues. FINDINGS: Extensive s oft tissue edema surrounding the right elbow in the region of pain with mildly increased vascularity. No abscess. IMPRESSION: Extensive soft tissu e edema surrounding the right elbow. Mild increased vascularity may relate to cellulitis. Correlate with physical exam. No abscess. Signed by: Dr. Miriam Benito M.D. on 05/04/2018 2:24 PM Dictated By: MILKA BENITO MD 1424 COPY TO: YUE RANDHAWA MD CT CHEST [id number] 18:51:00 [place] [address] Patient Name: DEMOND ORTIZ MR #: [id number] : 1935 Age/Sex: 82/M Req #: [id number] Adm Physician: BAL RANKIN MD Ordered by: BAL RANKIN MD Report #: [id number] Location: [facility] Room/Bed: [facility] Procedure: [id number] CT/CT CHEST WO Exam Date: 05/03/18 Exam Time: 1821 REPORT STATUS: Signed EXAM: CT Chest WITHOUT contrast 05/03/2018 5:01 PM INDICATIO N: COMPARISON: Chest radiograph 05/03/2018 and 05/01/2018 TE CHNIQUE: Chest was scanned utilizing a multidetector helical [...] x 0.015 x size factor) mSv CTDIvol carcamo s been reviewed. It is below the limits set by the Radiation Protocol Committe e ([facility]). FINDINGS: LINES/ TUBES: None. LUNGS AND AIRWAYS: Advanc ed bilateral centrilobular and paraseptal emphysema with multiple cystic ford es. Diffuse subpleural reticulation of the lungs with septal thickening and ar chitectural distortion consistent with nonspecific pattern of pulmonary fibros is. No consolidations or suspicious pulmonary nodules. Mild central bilateral bronchiectasis. Mild groundglass opacities in both lung bases. PLEURA: Sm all bilateral low-attenuation pleural effusions with fluid tracking into the f issures. No pneumothorax. HEART AND MEDIASTINUM: Heterogeneous appearance o f the thyroid gland may be due to small nodules. Multiple subcentimeter nonca lcified lymph nodes with the largest in the AP window measuring 0.8 cm on seri es 2, image 46. Biatrial enlargement. Trace pericardial effusion. Diffuse co ronary artery calcifications. The thoracic aorta is normal in caliber and ass ociated with severe atherosclerotic calcifications. There is a double contour of the descending thoracic aorta better seen on series 2, image 89 which may r epresent due to complex plaque with calcification of the intima versus chronic dissection. Small hiatal hernia. The main pulmonary artery normal in caliber. The right and left pulmonary arteries are prominent. UPPER ABDOMEN: Unre markable. BONES: Mild multilevel degenerative changes of the thoracic spine . SOFT TISSUES: Unremarkable. IMPRESSION: 1. Extensive bilateral em physema with multiple cystic changes. These cysts may relate to emphysema or s uperimposed Langerhans cell histiocytosis. 2. Bilateral nonspecific pattern of pulmonary fibrosis. 3. No lobar consolidations or centrilobular nodules to suggest active infection. 4. Extensive calcifications of the thoracic aorta with complex plaque versus chronic dissection in the descending thoraci c segment. Recommend nonemergent CTA chest for further evaluation. Signed by: Dr. Milka Benito M.D. on 05/03/2018 7:09 PM Dictated By: MILKA BENITO MD 08 Transcribed By: LUCI on 05/03/181908 COPY TO: BAL KOHLER MD CHEST SINGLE (PORTABLE)2018-05-03 08:07:00 [place] [address] Patient Name: DEMOND ORTIZ MR #: [id number] : 1935 Age/Sex: 82/M Req #: [id number] Adm Physician: BAL RANKIN MD Ordered by: TIMUR MORENO MD Report #: [id number] Location: MED/SURG2 Room/Bed: [facility] Procedure: [id number] DX/KELSY ST SINGLE (PORTABLE) Exam Date: 05/03/18 Exam Time: 0650 REPORT STATUS: Signed EXAMINATION: CHEST SINGLE (PORTABLE) INDICATION: Fever. Pneumonia. COMPARISON: May 01, 2018 FINDINGS: LINES/TUBES: None LUNGS: Peripheral interstitial thickening with more focal reticulonodular changes in the right upper lung. PLEURA : No effusions or pneumothorax. HEART AND MEDIASTINUM: Normal size and cont our. BONES AND SOFT TISSUES: No acute findings. IMPRESSION: Essential ly no change when compared with the prior exam. Peripheral interstitial thicke chela suggests interstitial lung disease or emphysematous changes with age rela laquita changes. More focal reticulonodular changes in the right upper lung cou ld represent superimposed infection. Please correlate with patient's symptoms. Signed by: Dr. Anabella Cardona M.D. on 05/03/2018 8:08 AM Dictated B y: ANABELLA CARDONA MD, MD 0808 COPY TO: TIMUR MORENO MD Lactic Acid Kpelf0312-93-59 23:48:00* Test Item Value Reference Range Interpretation Comments Lactic Acid Level (test code = Lactic Acid Level) 12.2 4.5- 19.8 [facility]ennialLactic Acid Gsihz8425-64-91 23:48:00* Test Item Value Reference Range Interpretation Comments Lactic Acid Level (test code = Lactic Acid Level) 12.2 4.5- 19.8 [facility] CentennialLactic Acid Nxdsv1621-01-41 23:48:00* Test Item Value Reference Range Interpretation Comments Lactic Acid Level (test code = Lactic Acid Level) 12.2 4.5- 19.8 [facility] CentennialCHEST 2 BQCKJ2256-20-84 21:30:00 [place] [address] Patient Name: DEMOND ORTIZ MR #: [id number] : Age/Sex: 82/M Req #: [id number] Adm Physician: Ordered by: TIMUR MORENO MD Report #: [id number] Location: ER Room/Bed: Procedure: [id number] DX/CHEST 2 VIEWS Exam Date: Exam Time: 2099 REPORT STATUS: Signed EXAM: CHEST 2 VIEWS, PA and lateral INDICATION: Fever COMPARISON: None FINDINGS: LINES/TUBES: None LUNGS: Peripheral interstitial thickening wi th more focal reticulonodular changes in the right upper lung. PLEURA: N o effusions or pneumothorax. HEART AND MEDIASTINUM: Normal size and contour . BONES AND SOFT TISSUES: No acute findings. IMPRESSION: Peripheral interstitial thickening suggests interstitial lung disease or emphysematous c hanges with age related changes. More focal reticulonodular changes in the right upper lung could represent superimposed infection. Please correlate with patient's symptoms. Signed by: Dr. Zandra Fontaine M.D. on 018 9:32 PM Dictated By: ZANDRA FONTAINE MD 31 Transcribed By: LUCI on 05/01/182131 CO PY TO: TIMUR MORENO MD Creatine Kinase [id number] 21:26:00* Test Item Value Reference Range Interpretation Comments Creatine Kinase MB (test code = 17979-7) 1.90 0-5.0 [facility]ennialTroponin D1547-08-08 21:26:00* Test Item Value Reference Range Interpretation Comments Troponin I (test code = SBQ1457) 0.094 0-0.300 [facility] CentennialCreatine Kinase MD7309-75-95 21:26:00* Test Item Value Reference Range Interpretation Comments Creatine Kinase MB (test code = 98516-2) 1.90 0-5.0 [facility] CentennialTroponin F1970-87-64 21:26:00* Test Item Value Reference Range Interpretation Comments Troponin I (test code = XCD9891) 0.094 0-0.300 [facility] CentennialCT BRAIN [id number] 21:26:00 [facility] [address] [place] [address] Patient Name: DEMOND ORTIZ MR #: [id number] : Age/Sex: 82/M Req #: [id number] Adm Physician: Ordered by: TIMUR MORENO MD Report #: [id number] Location: ER Room/Bed: Procedure: [id number] CT/CT BRAIN WO Exam Date: 04/04 05/21 Exam Time: 2100 REPORT STATUS: Signed E XAMINATION: Head CT without contrast. HISTORY:Confusion. COMPARIS ON:None. TECHNIQUE: Multidetector axial images were obtained from the foramen magnum to the vertex without contrast. The images were reconstructed using bra in and bone algorithms. Thin section brain images were reformatted into coron al and sagittal planes. Dose modulation, iterative reconstruction, and/or we ight based adjustment of the mA/kV was utilized to reduce the radiation dose t o as low as reasonably achievable. Intravenous contrast: None IMAG E QUALITY: Acceptable. FINDINGS: Skull/scalp: No lytic or blastic. le sions. No surgical changes. Parenchyma: Cortical-based hypodensity in rig ht precentral gyrus with regional volume loss represents chronic encephalomala vashti from prior vascular insult. Nonspecific bilateral frontoparietal patchy white matter hypodensity are likely related to small vessel ischemic changes. Age indeterminate possible chronic lacunar infarct in bilateral caudate head and left subinsular region. No acute hemorrhage or mass. Arteries: Athe rosclerotic calcification in bilateral carotid siphon. Dural sinuses: No a bnormal density suggestive of thrombosis. Ventricles: No hydrocephalus or displacement. Extra-axial spaces: No abnormal density. Brain volu me: Generalized age-related cerebral volume loss. Craniocervical junction: No mass, Chiari malformation, or basilar invagination. Sella: No mass. Paranasal/mastoid sinuses: Imaged portions unremarkable. IMPRESSION: 1. No acute intracranial abnormality, particularly no acute hemorrhage or acute major vascular territorial infarct. 2. 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 Age indeterm inate possible chronic lacunar infarct in bilateral caudate head and left subi nsular region. 3. Mild supratentorial white matter microvascular ischemic c hanges. 4. Generalized age-related cerebral volume loss. Signed by: Dr Puja Arthur M.D. on 05/01/2018 9:31 PM Dictated By: ELISHA ARTHUR MD 30 Transcribed By: LUCI on 05/01/182130 COPY TO: TIMUR MORENO MD Total Cdtnwunug9094-13-98 21:19:00* Test Item Value Reference Range Interpretation Comments Total Bilirubin (test code = 1975-2) 1.2 0.2-1.2 [facility]ennialAspartate Amino Transf (AST/SGOT) 2018-05-01 21:19:00* Test Item Value Reference Range Interpretation Comments Aspartate Amino Transf (AST/SGOT) (test code = Aspartate Amino Transf (AST/SGOT)) 20 5-34 [facility] CentennialAlanine Aminotransferase (ALT/SGPT) 2018-05-01 21:19:00* Test Item Value Reference Range Interpretation Comments Alanine Aminotransferase (ALT/SGPT) (test code = 1742-6) 20 0-55 [facility] CentennialTotal Utgffue2183-27-44 21:19:00* Test Item Value Reference Range Interpretation Comments Total Protein (test code = 2885-2) 6.8 6.5-8.1 [facility] CentennialAlbumin2018-08-29 21:19:00* Test Item Value Reference Range Interpretation Comments Albumin (test code = 1751-7) 4.0 3.5-5.0 [facility] CentennialGlobulin2018-08-29 21:19:00* Test Item Value Reference Range Interpretation Comments Globulin (test code = 62957-9) 2.8 2.3-3.5 [facility] CentennialAlbumin/Globulin Xhlva4132-42-40 21:19:00 * Test Item Value Reference Range Interpretation Comments Albumin/Globulin Ratio (test code = 1759-0) 1.4 0.8-2.0 [facility] [facility] Vyvhgqxxisa7841-74-00 21:19:00* Test Item Value Reference Range Interpretation Comments Alkaline Phosphatase (test code = 6768-6) 49 40-150 [facility] [id number] 21:19:00* Test Item Value Reference Range Interpretation Comments Creatine Kinase (test code = 2157-6) 99 30-200 [facility] [id number] 21:19:00* Test Item Value Reference Range Interpretation Comments Creatine Kinase (test code = 2157-6) 99 30-200 [facility] [id number] 21:17:00* Test Item Value Reference Range Interpretation Comments Urine Color (test code = 5778-6) YELLOW YELLOW [facility] Jlemfrl4377-15-06 21:17:00* Test Item Value Reference Range Interpretation Comments Urine Clarity (test code = 60092-3) CLEAR CLEAR [facility] Specific [id number] 21:17:00 * Test Item Value Reference Range Interpretation Comments Urine Specific [place] (test code = 5811-5) 1.020 1.010-1.02 5 [facility] [id number] 21:17:00* Test Item Value Reference Range Interpretation Comments Urine pH (test code = 55432-0) 6 5-7 [facility] Leukocyte Frbpsrhk7463-30-77 21:17:00* Test Item Value Reference Range Interpretation Comments Urine Leukocyte Esterase (test code = 5799-2) NEGATIVE NEGATIVE [facility] Uwizsdk7480-45-16 21:17:00* Test Item Value Reference Range Interpretation Comments Urine Nitrite (test code = 15464-0) NEGATIVE NEGATIVE [facility] Ummfcxo7312-71-22 21:17:00* Test Item Value Reference Range Interpretation Comments Urine Protein (test code = 5804-0) NEGATIVE NEGATIVE [facility] Glucose (UA)2018-05-01 21:17:00* Test Item Value Reference Range Interpretation Comments Urine Glucose (UA) (test code = 2349-9) NEGATIVE NEGATIVE [facility] [id number] 21:17:00* Test Item Value Reference Range Interpretation Comments Urine Ketones (test code = 77641-0) NEGATIVE NEGATIVE [facility] Sbitkptgccaz8615-23-29 21:17:00* Test Item Value Reference Range Interpretation Comments Urine Urobilinogen (test code = 00379-0) 0.2 0.2-1 [facility] Cxhxzpdkf9397-48-38 21:17:00* Test Item Value Reference Range Interpretation Comments Urine Bilirubin (test code = 1978-6) NEGATIVE NEGATIVE [facility] Ezryl5359-72-24 21:17:00* Test Item Value Reference Range Interpretation Comments Urine Blood (test code = 98346-8) NEGATIVE NEGATIVE [facility] [id number] 21:17:00* Test Item Value Reference Range Interpretation Comments Urine WBC (test code = 5821-4) NONE 0-5 [facility] [id number] 21:17:00* Test Item Value Reference Range Interpretation Comments Urine RBC (test code = 00842-1) NONE 0-5 [facility] Nacyhubw2391-84-46 21:17:00* Test Item Value Reference Range Interpretation Comments Urine Bacteria (test code = 26300-0) FEW NONE [facility] Epithelial [id number] 21:17:00 * Test Item Value Reference Range Interpretation Comments Urine Epithelial Cells (test code = 92554-3) RARE NONE [facility] Leeem2680-50-17 21:17:00* Test Item Value Reference Range Interpretation Comments Urine Color (test code = 5778-6) YELLOW YELLOW [facility] Sgefukt4222-52-17 21:17:00* Test Item Value Reference Range Interpretation Comments Urine Clarity (test code = 68933-7) CLEAR CLEAR [facility] Specific Pckbebz8122-20-19 21:17:00 * Test Item Value Reference Range Interpretation Comments Urine Specific [place] (test code = 5811-5) 1.020 1.010-1.02 5 [facility] [id number] 21:17:00* Test Item Value Reference Range Interpretation Comments Urine pH (test code = 91168-1) 6 5-7 [facility] Leukocyte Dlxcelyc9075-42-74 21:17:00* Test Item Value Reference Range Interpretation Comments Urine Leukocyte Esterase (test code = 5799-2) NEGATIVE NEGATIVE [facility] Alystym0813-28-99 21:17:00* Test Item Value Reference Range Interpretation Comments Urine Nitrite (test code = 77191-6) NEGATIVE NEGATIVE [facility] Adqwqqm8756-13-93 21:17:00* Test Item Value Reference Range Interpretation Comments Urine Protein (test code = 5804-0) NEGATIVE NEGATIVE [facility] Glucose (UA)2018-05-01 21:17:00* Test Item Value Reference Range Interpretation Comments Urine Glucose (UA) (test code = 2349-9) NEGATIVE NEGATIVE [facility] Axzvetb8361-82-23 21:17:00* Test Item Value Reference Range Interpretation Comments Urine Ketones (test code = 93040-3) NEGATIVE NEGATIVE [facility] Akvdacxsezdj6196-37-72 21:17:00* Test Item Value Reference Range Interpretation Comments Urine Urobilinogen (test code = 10806-0) 0.2 0.2-1 [facility] Gpdcvtldr7285-31-75 21:17:00* Test Item Value Reference Range Interpretation Comments Urine Bilirubin (test code = 1978-6) NEGATIVE NEGATIVE [facility] Cshee0040-36-96 21:17:00* Test Item Value Reference Range Interpretation Comments Urine Blood (test code = 44626-9) NEGATIVE NEGATIVE [facility] [id number] 21:17:00* Test Item Value Reference Range Interpretation Comments Urine WBC (test code = 5821-4) NONE 0-5 [facility] [id number] 21:17:00* Test Item Value Reference Range Interpretation Comments Urine RBC (test code = 70369-7) NONE 0-5 [facility] Pambahxu6773-27-79 21:17:00* Test Item Value Reference Range Interpretation Comments Urine Bacteria (test code = 21275-2) FEW NONE [facility] Epithelial Gkfdp4087-16-10 21:17:00 * Test Item Value Reference Range Interpretation Comments Urine Epithelial Cells (test code = 50003-7) RARE NONE [facility] [id number] 21:17:00* Test Item Value Reference Range Interpretation Comments Urine Color (test code = 5778-6) YELLOW YELLOW [facility] Dlorbvh0647-59-95 21:17:00* Test Item Value Reference Range Interpretation Comments Urine Clarity (test code = 05641-4) CLEAR CLEAR [facility] Specific [id number] 21:17:00 * Test Item Value Reference Range Interpretation Comments Urine Specific [place] (test code = 5811-5) 1.020 1.010-1.02 5 [facility] [id number] 21:17:00* Test Item Value Reference Range Interpretation Comments Urine pH (test code = 83007-5) 6 5-7 [facility] Leukocyte Vwkeyhkj0734-92-84 21:17:00* Test Item Value Reference Range Interpretation Comments Urine Leukocyte Esterase (test code = 5799-2) NEGATIVE NEGATIVE [facility] Vywlgji0543-57-04 21:17:00* Test Item Value Reference Range Interpretation Comments Urine Nitrite (test code = 59275-2) NEGATIVE NEGATIVE [facility] Zdppaef5504-45-39 21:17:00* Test Item Value Reference Range Interpretation Comments Urine Protein (test code = 5804-0) NEGATIVE NEGATIVE [facility] Glucose (UA)2018-05-01 21:17:00* Test Item Value Reference Range Interpretation Comments Urine Glucose (UA) (test code = 2349-9) NEGATIVE NEGATIVE [facility] Kuugdsa4669-66-95 21:17:00* Test Item Value Reference Range Interpretation Comments Urine Ketones (test code = 10546-3) NEGATIVE NEGATIVE [facility] Qmkovtgoowqk4555-48-90 21:17:00* Test Item Value Reference Range Interpretation Comments Urine Urobilinogen (test code = 77073-9) 0.2 0.2-1 [facility] Wwhwkeleu0849-34-40 21:17:00* Test Item Value Reference Range Interpretation Comments Urine Bilirubin (test code = 1978-6) NEGATIVE NEGATIVE [facility] [id number] 21:17:00* Test Item Value Reference Range Interpretation Comments Urine Blood (test code = 33302-4) NEGATIVE NEGATIVE [facility] [id number] 21:17:00* Test Item Value Reference Range Interpretation Comments Urine WBC (test code = 5821-4) NONE 0-5 [facility] [id number] 21:17:00* Test Item Value Reference Range Interpretation Comments Urine RBC (test code = 28391-7) NONE 0-5 [facility] Ztpvrrez7220-54-08 21:17:00* Test Item Value Reference Range Interpretation Comments Urine Bacteria (test code = 46856-7) FEW NONE [facility] Epithelial [id number] 21:17:00 * Test Item Value Reference Range Interpretation Comments Urine Epithelial Cells (test code = 13386-6) RARE NONE [facility] 2000 panel - Serum or Gobbkm6555-11-54 06:32:00* Test Item Value Reference Range Interpretation Comments glucose (test code = glucose) 98 mg/dL 65-99 urea nitrogen (BUN) (test code = urea nitrogen (BUN)) 34 mg/dL 7-25 H creatinine (test code = creatinine) 1.70 mg/dL 0.70-1.11 H eGFR non-afr. mauritanian (test code = eGFR non-afr. mauritanian) 36 mL/min/1.73m2 > or = 60 L eGFR (test code = eGFR ) 42 mL/min/1.73m2 > or = 60 L BUN/creatinine ratio (test code = BUN/creatinine ratio) 20 (calc) 6-22 sodium (test code = sodium) 139 mmol/L 135-146 potassium (test code = potassium) 4.7 mmol/L 3.5-5.3 chloride (test code = chloride) 104 mmol/L 98-110 carbon dioxide (test code = carbon dioxide) 24 mmol/L 20-31 calcium (test code = calcium) 9.4 mg/dL 8.6-10.3 protein, total (test code = protein, total) 7.1 g/dL 6.1-8.1 albumin (test code = albumin) 4.4 g/dL 3.6-5.1 globulin (test code = globulin) 2.7 g/dL (calc) 1.9-3.7 albumin/globulin ratio (test code = albumin/globulin ratio) 1.6 (calc) 1.0-2.5 bilirubin, total (test code = bilirubin, total) 0.9 mg/dL 0.2-1. 2 alkaline phosphatase (test code = alkaline phosphatase) 48 U/L 40-115 AST (test code = AST) 17 U/L 10-35 ALT (test code = ALT) 18 U/L 9-46 [facility] 2000 [facility] - Serum or Plasma 2017-08-24 10:36:00* Test Item Value Reference Range Interpretation Comments ALT (test code = ALT) 23 U/L 0-55 AST (test code = AST) 21 U/L 5-34 BUN (test code = BUN) 41.2 mg/dL 8.4-25.7 H alk phos (test code = alk phos) 46 unit/L 40-150 glucose (test code = glucose) 87 mg/dL 70-99 albumin (test code = albumin) 4.2 g/dL 3.5-5.0 creatinine (test code = creatinine) 1.68 mg/dL 0.72-1.25 H eGFR non- (test code = eGFR non-mahsa n mauritanian) 39 mL/min/1.73m2 >60 L total bilirubin (test code = total bilirubin) 0.8 mg/dL 0.2-1.2 eGFR - (test code = eGFR - ) 47 mL/min/1.73m2 >60 L sodium (test code = sodium) 142 mEq/L 136-145 potassium (test code = potassium) 4.6 mEq/L 3.5-5.1 chloride (test code = chloride) 108 mmol/L 98-107 H total protein (test code = total protein) 7.3 g/dL 6.4-8.3 calcium (test code = calcium) 9.3 mg/dL 8.8-10.0 CO2 (test code = CO2) 23.7 mmol/L 23.0-31.0 anion gap (test code = anion gap) 10 [facility] - Serum or Plasma 2017-08-13 13:40:00* Test Item Value Reference Range Interpretation Comments ALT (test code = ALT) 18 U/L 0-55 AST (test code = AST) 20 U/L 5-34 BUN (test code = BUN) 41.7 mg/dL 8.4-25.7 H alk phos (test code = alk phos) 47 unit/L 40-150 glucose (test code = glucose) 107 mg/dL 70-99 H albumin (test code = albumin) 4.3 g/dL 3.5-5.0 creatinine (test code = creatinine) 2.14 mg/dL 0.72-1.25 H eGFR non- (test code = eGFR non-amhsa n mauritanian) 30 mL/min/1.73m2 >60 L total bilirubin (test code = total bilirubin) 1.0 mg/dL 0.2-1.2 eGFR - (test code = eGFR - ) 36 mL/min/1.73m2 >60 L sodium (test code = sodium) 142 mEq/L 136-145 potassium (test code = potassium) 5.6 mEq/L 3.5-5.1 H chloride (test code = chloride) 105 mmol/L 98-107 total protein (test code = total protein) 7.4 g/dL 6.4-8.3 calcium (test code = calcium) 9.9 mg/dL 8.8-10.0 CO2 (test code = CO2) 27.2 mmol/L 23.0-31.0 anion gap (test code = anion gap) 10 calc [facility] CenterHem[facility] A1c/Hemoglobin.total in [id number] 15:53:00* Test Item Value Reference Range Interpretation Comments A1C w/EAG (test code = A1C w/EAG) 6.6 % 1.0-5.7 H average blood glucose (test code = average blood glucose) 143 mg/dL [facility] Centerpotassium, [id number] 17:02:00* Test Item Value Reference Range Interpretation Comments potassium (test code = potassium) 4.4 mEq/L 3.5-5.1 [facility] Centerpot[facility], [id number] 17:33:00* Test Item Value Reference Range Interpretation Comments potassium (test code = potassium) 5.4 mEq/L 3.5-5.1 H [facility] CenterLipid 1995 panel - Serum or [id number] 12:46:00* Test Item Value Reference Range Interpretation Comments HDL (test code = HDL) 30 mg/dL 40-60 L triglyceride (test code = triglyceride) 186 mg/dL 0-149 H VLDL calc. (test code = VLDL calc.) 37 mg/dL cholesterol/HDL ratio (test code = cholesterol/HDL ratio) 5 mg/dL non-HDL cholesterol calc. (test code = non-HDL cholesterol c alc.) 106 mg/dL 0-160 cholesterol (test code = cholesterol) 136 mg/dL 0-199 LDL calc. (test code = LDL calc.) 69 mg/dL 0-130 [facility]Basic [facility] 1999 panel - Serum or [id number] 18:15:00* Test Item Value Reference Range Interpretation Comments BUN (test code = BUN) 47.0 mg/dL 8.4-25.7 H glucose (test code = glucose) 88 mg/dL 70-99 creatinine (test code = creatinine) 1.97 mg/dL 0.72-1.25 H eGFR non- (test code = eGFR non-mahsa n mauritanian) 33 mL/min/1.73m2 >60 L eGFR - (test code = eGFR - ) 39 mL/min/1.73m2 >60 L sodium (test code = sodium) 143 mEq/L 136-145 potassium (test code = potassium) 5.3 mEq/L 3.5-5.1 H chloride (test code = chloride) 108 mmol/L 98-107 H calcium (test code = calcium) 9.5 mg/dL 8.8-10.0 CO2 (test code = CO2) 24.4 mmol/L 23.0-31.0 anion gap (test code = anion gap) 11 calc [facility] CenterProstate specific Ag [Mass/volume] in Serum or Plasma 2017-05-11 18:15:00* Test Item Value Reference Range Interpretation Comments PSA, total (test code = PSA, total) 1.73 NG/mL <4.00 [facility] CenterHemoglobin A1c/Hemoglobin.total in [id number] 17:03:00* Test Item Value Reference Range Interpretation Comments A1C w/EAG (test code = A1C w/EAG) 6.4 % 1.0-5.7 H average blood glucose (test code = average blood glucose) 137 mg/dL [facility]
--- OUTSIDE RECORDS SUMMARY | 2020-04-22 11:33 | XMS REPORT | Encounter Summary ---
Author Organization Unknown Address [address] [place] [address] Phone [phone] Care Team Providers Care Supervisor Firearms Name Role Phone Dr. Jero Anderson 3 [phone] Jero Anderson Jr, MD 3 [phone] Jason Jackson MD 105 [phone] Giovani Saucedo MD 114 [phone] Reason for Visit hyperlipidemia; hypertension; Advance Ca re Plan; diabetes Instructions 1. Type 2 diabetes mellitus glucose, fingerstick, blood 2. Hypertensive heart AND renal disease 3. Chronic kidney disease stage 3 4. Chronic obstructive lung disease Advair Diskus 500 mcg-50 mcg/dose powd er for inhalation 5. Gastroesophageal reflux disease 6. Osteoarthritis of knee 7. Senile purpura 8. Advance directive discussed with masood ent advance care planning: care instructio nimisha Discussion Note: None recorded. Plan of Care Patient Instructions Patient Instructions on Filing Advance Directives Be sure that you have easy access to your paperwork for your medical power of insurance attorney and advanced directives. Be sure that the designated person as well as important family members have copies of those forms as well. Please have contact information of your designee readily available. In the event of hospitalization, please bring those important documents with you for reference. Reminders Provider Appointments Return to Office on or around 05/22/2019 Aicha Anderson Jr, MD Lab Glucose, Fingerstick, Blood 02/19/2019 [facility] Hobby Referral None recorded. Procedures None recorded. Surgeries [...] (1) TABLET(S) BY MOUTH ONCE A DAY. Men 50 Plus Multivitamin TAKE 1 A DAY nifedipine ER 30 mg tablet,extended rele ase TAKE ONE (1) TABLET(S) BY MOUTH ONCE A DAY. pantoprazole 40 mg tablet,delayed releas e Take 1 tablet twice a day by oral route. V-R Vekggza-Qgnctpqph-Ngxj 1000 mg-400 m g-15 mg tablet Take 1 tablet every day by oral route for 90 days. Vitamin C 1,000 mg tablet Take 1 tablet every day by oral route for 90 days. Vitamin D3 2,000 unit capsule Take 1 capsule every day by oral route for 90 days. Medications Administered None recorded. Vitals Height Weight BMI Blood Pressure 5 ft 8 in 178 lbs 27.1 kg/m2 (1) 148/72 mm[H g] (2) 150/78 mm[Hg] (3) 124/64 mm[Hg] Lab Results None recorded. Allergies Code Code System Name Reaction Severity Status Onset 3640 RxNorm Doxycycline Facial Swelling Active 30850 RxNorm Lisinopril Cough Active Problems Name Status [...] Knee Active 08/21/2018 Senile Purpura Active 02/19/2019 Procedures Date Name Performed by 09/03/2017 Gastrointestinal Surgery Information not available Hernia Repair Information not avai lable Tonsillectomy Information not avai lable Vaccine List Vaccine Type influenza, high dose seasonal 05/11/20170.5 mL influenza, unspecified formulation 07/02/2018 pneumococcal conjugate PCV 13 05/11/20170.5 mL pneumococcal polysaccharide PPV23 06/05/2006 05/19/2016 Tdap 05/30/20170.5 mL Social History Smoking Status Former Smoker (1 PPD) Past Encounters 02/19/2019 Type 2 Diabetes Mellitus; Hypertensive Heart and Renal Disease; Chronic Kidney Disease Stage 3; Chronic Obstructive Lung Disease; Gastroesophageal Reflux Disease; Osteoarthritis of Knee; Senile Purpura; Advance Directive Discussed with Patient Jero Anderson Jr, MD: [id number] [facility], [address], [place] [address], Ph. History of Present Illness Diabetes F/U Reported By: Patient HPI: Labs: last A1C result: 6.4. Context: no side effects from medications. Associated Symptoms: no dizziness, no sweats, no headaches, no confusion, no increased thirst, no increased appetite, no increased urination, no blurred vision, no numbness of feet Notes: Endorses medication complian ce. Hypertension Reported By: Patient HPI: Severity: mild. Onset/Timing : gradual onset. Alleviating Factors: relieved with rest, medication. Self Care: not under emotional stress, blood pressure goal: 130/80. Associated Symptoms: no shortness of breath, no fatigue, no decline in exercise capacity Hyperlipidemia Reported By: Patient HPI: Type of hyperlipidemia: comb ined, hypercholesterolemia. Duration: chronic. Current Therapy: currently taking: atorvastatin, last LDL level: 72 date: 72. Compliance: compliant. Complications: no coronary artery disease. Risk Factors: diabetes, hypertension Note:Patient presents for routine medication refill . Currently without new complaint.
I'd like to talk about what is ahead with your illness and do some thinking in advance about what is important to you so I can make sure we provide you with the care you want-is that okay? {{Yes|No}} Review of Systems Comprehensive General Adult ROS Reported By: Patient Constitutional: Constitutional: no fever, no significant weight gain, no significant weight loss, no exercise intolerance Eyes: Eyes: no vision change Cardiovascular: Cardiovascular: no chest ana n, no shortness of breath when walking, no palpitations, no lightheadedness Respiratory: Respiratory: no cough, no wh eezing, no shortness of breath Gastrointestinal: Gastrointestinal: no abdomin al pain, no nausea, no vomiting, no constipation, normal appetite, no diarrhea Genitourinary: Genitourinary: no difficulty urinating, no increased frequency Musculoskeletal: Musculoskeletal: no muscle w eakness, no arthralgias/joint pain Integumentary: Skin: no rashes, no lacerati on Neurologic: Neurologic: no weakness, no numbness, no dizziness Endocrine: Endocrine: no fatigue Physical Exam General Adult Exam (male), S kin Exam, Cardiology Exam, Diabetes, Diabetic Foot Exam Reported By: Patient Constitutional: General Appearance: well-nou rished, well-developed, appears stated age. Level of Distress: NAD Psychiatric: Insight: good judgement, goo d insight. Mental Status: active and alert, normal mood, normal affect, no diffuse anxiety, no paranoid ideations. Orientation: to time, to place, to person, oriented to time, place, and person. Memory: recent memory normal, remote memory normal Lungs: Auscultation: good air movem ent, CTA except as noted, no wheezing, no rales/crackles, no rhonchi Cardiovascular: Heart Auscultation: RRR, nor mal S1, no rubs, no gallops, physiologically split S2, no click. Pulses including femoral / pedal: full and equal in all extremities except if noted. Systolic Murmur: not heard. Diastolic Murmur: not heard Musculoskeletal:: Joints, Bones, and Muscles: no bony abnormalities, tenderness. Extremities: no cyanosis, no edema, no peripheral signs of emboli Skin: Inspection and palpation: wa rm and dry. Upper Extremities Right: with purpura. Upper Extremities Left: with purpura Back: Thoracolumbar Appearance: no chest wall tenderness"
--- OUTSIDE RECORDS SUMMARY | 2020-04-22 11:33 | XMS REPORT | Encounter Summary ---
Author Organization Unknown Address [address] [place] [address] Phone [phone] Care Team Providers Care Patent Searcher Name Role Phone Dr. Jero Anderson 3 [phone] Jero Anderson Jr, MD 3 [phone] Jason Jackson MD 105 [phone] Giovani Saucedo MD 114 [phone] Reason for Visit Type 2 diabetes mellitus; Chronic kidney disease due to type 2 diabetes mellitus; Chronic kidney disease stage 3; Hypertensive heart AND renal disease; urinary issues/incontinence; advance care plan; TELE-AWV Annual Wellness Visit Male; Telemedicine Visit; medication refill Instructions 1. Adult health examination 2. Advance directive discussed with masood ent advance care planning: care instructio ns 3. Depression screening learning about depression 4. Type 2 diabetes mellitus HbA1c (hemoglobin A1c), blood microalbumin/creatinine, mass ratio, u rine 5. Peripheral circulatory disorder assoc iated with type 2 diabetes mellitus 6. Mixed hyperlipidemia atorvastatin 20 mg tablet lipid panel, serum 7. Hypertensive heart AND renal disease nifedipine ER 30 mg tablet,extended re lease CMP, serum or plasma TSH, serum or plasma 8. Chronic kidney disease stage 3 9. Long-term current use of anticoagulan t clopidogrel 75 mg tablet CBC w/ auto diff 10. History of angioplasty of carotid ar ricardo 11. Senile purpura 12. Chronic obstructive lung disease Advair Diskus 500 mcg-50 mcg/dose powd er for inhalation albuterol sulfate HFA 90 mcg/actuation aerosol inhaler 13. Nocturia PSA, serum or plasma urinalysis, dipstick 14. 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 Lower urinary tract symptoms due to benign prostatic hypertrophy finasteride 5 mg tablet Discussion Note: None recorded. Plan of Care Patient Instructions It was good to speak with you virtually today for your Medicare Annual Wellness Visit. [...] Annual Wellness folder. Screening Recommendations 1. Vaccines Pneumonia: No further need Influenza: This Fall 2. Colorectal Cancer Screening: No further screening necessary at this time 3. Annual Prostate Screening 4. Annual Depression Screening 5. Annual Alcohol Screening 6. Annual Fall Risk Screening 7. Annual Health Risk Assessment Patient Instructions on Filing Advance Directives Be sure that you have easy access to your paperwork for your Medical Power of Volunteer Manager and Advanced Directives. Be sure that the designated person as well as important family members have copies of those forms as well. Please have contact information of your designee readily available. In the event of hospitalization, please bring those important documents with you for reference. Please find additional information at [email or web address] Reminders Provider Appointments Return to Office on or around 04/09/2020 Aicha Anderson Jr, MD Lab HbA1C (Hemoglobin a1C), Blood [facility] Microalbumin/creatinine, Mass Ratio, Urine 03/26 [facility] Medical - Laboratory Lipid Panel, Serum 03/26/2020 [facility] Medic al - Laboratory CMP, Serum or Plasma 03/26/2020 [facility] ical - Laboratory CBC W/ Auto Diff 03/26/2020 [facility] Medical - Laboratory TSH, Serum or Plasma 03/26/2020 [facility] ical - Laboratory PSA, Serum or Plasma 03/26/2020 [facility] ical - Laboratory Urinalysis, Dipstick 03/26/2020 [facility] ical - Hobby Referral None recorded. Procedures None recorded. [...] by oral route. clopidogrel 75 mg tablet TAKE ONE (1) TABLET(S) BY MOUTH ONCE A DAY. finasteride 5 mg tablet Take 1 tablet every day by oral route for 90 days. Men 50 Plus Multivitamin TAKE 1 A DAY nifedipine ER 30 mg tablet,extended rele ase TAKE ONE (1) TABLET(S) BY MOUTH ONCE A DAY. pantoprazole 40 mg tablet,delayed releas e Take 1 tablet every day by oral route in the morning. Tylenol Arthritis Pain 650 mg tablet,ext ended release Take 2 tablets every 8 hours by oral route for 90 days. V-R Ggouxcg-Ehdstoyfk-Ermo 1000 mg-400 m g-15 mg tablet Take [...] Onset 3640 RxNorm Doxycycline Facial Swelling Active 65913 RxNorm Lisinopril Cough Active Problems Name Status [...] Status Former Smoker (1 PPD) Past Encounters 03/26/2020 Adult Health Examination; Advance Directive Discussed with Patient; Depression Screening; Type 2 Diabetes Mellitus; Peripheral Circulatory Disorder Associated with Type 2 Diabetes Mellitus; Mixed Hyperlipidemia; Hypertensive Heart and Renal Disease; Chronic Kidney Disease Stage 3; Long-term Current Use of Anticoagulant; History of Angioplasty of Carotid Artery; Senile Purpura; Chronic Obstructive Lung Disease; Nocturia; Proteinuric Nephropathy Due to Diabetes Mellitus; Lower Urinary Tract Symptoms Due to Benign Prostatic Hypertrophy Jero Anderson Jr, MD: [id number] [facility], [facility] [address], [place] [address], Ph. History of Present Illness Hypertension Reported [...] numbness of feet Notes: Diet controlled diabetes. Mini Cog Reported By: Patient Functional Ability: Personal/Social/ 3 word reca ll: Your nurse or doctor will ask you to remember 3 words. In 5 minutes, they will ask you to repeat them. Patient recalled 3 words Hyperlipidemia Reported By: Patient HPI: Type of hyperlipidemia: hype rcholesterolemia. Duration: chronic. Current Therapy: currently taking: atorvastatin, last LDL level: 73 date: 73. Complications: peripheral artery disease, cardiovascular disease. Risk Factors: diabetes, hypertension, low HDL level Opioid Use Assessment Reported By: Patient Opioid Use Assessment:: Current Use of Opioids : no use of opioids (no further questions required) Hypertension Reported By: Patient Note:I confirm that I received verbal consent from the patient for the virtual visit.
This telemedicine encounter was performed using live {{video and audio|audio only because either patient did not have technology or unable to connect due to technical problems*}}.
<strong>10 minutes spent on additional concerns/complaints.</strong><div>
<strong></strong>I'd like to talk about what is ahead with your illness and do some thinking in advance about what is important to you so I can make sure we provide you with the care you want-is that okay? {{Yes*|No}}
Do you have a Living Will/Advanced Directive? {{yes*|no}}

Do you have a Medical Power of Volunteer Manager? {{yes*|no}}

How much does your family/caregiver know about your illness/conditions? {{not at all|to a small extent|to some extent|to a moderate extent|to a great extent*}}< br>
Have you had a conversation with your family/caregiver about planning for your future health? {{yes*|no}}
</div> Review of Systems Comprehensive General Adult ROS Reported By: Patient Constitutional: Constitutional: no significa nt weight gain, no significant weight loss Cardiovascular: Cardiovascular: no chest ana n, no shortness of breath when walking Respiratory: Respiratory: no cough, no wh eezing, no shortness of breath Genitourinary: Genitourinary: no incontinen ce, no difficulty urinating, no hematuria, increased urinary frequency; nocturia Endocrine: Endocrine: no fatigue Physical Exam Neurology Exam, Telemedicine /Virtual Visit Reported By: Patient Constitutional: Weight: well-nourished. Ambu lation: ambulates independently Head: Size/Trauma: normocephalic Mental Status: Orientation oriented to pers on, oriented to place, oriented to time. Mood/Affect: appropriate mood, appropriate affect. Language: has spontaneous speech. Memory: recent memory intact, remote memory intact. Fund of Knowledge: current events, past history"
--- OUTSIDE RECORDS SUMMARY | 2020-04-22 11:33 | XMS REPORT | Encounter Summary ---
Author Organization Unknown Address [address] [place] [address] Phone [phone] Care Team Providers Care Probation And Parole Officer Name Role Phone Dr. Jero Anderson 3 [phone] Jero Anderson Jr, MD 3 [phone] Jason Jackson MD 105 [phone] Giovani Saucedo MD 114 [phone] Reason for Visit hyperlipidemia; hypertension; swelling/e stephanie; diabetes Instructions 1. Type 2 diabetes mellitus glucose, fingerstick, blood HbA1c (hemoglobin A1c), blood microalbumin/creatinine, ratio, urine 2. Hypertensive heart AND renal disease nifedipine ER 30 mg tablet,extended re lease CBC w/ auto diff CMP, serum or plasma 3. Chronic kidney disease stage 3 PTH (parathyroid hormone), intact, ser um or plasma 4. Mixed hyperlipidemia atorvastatin 20 mg tablet lipid panel, serum 5. Long-term current use of anticoagulan t clopidogrel 75 mg tablet 6. Gastroesophageal reflux disease pantoprazole 40 mg tablet,delayed rele ase 7. Peripheral edema 8. Influenza vaccination Fluzone High-Dose 2019-20 (PF) 180 mcg /0.5 mL intramuscular syringe Discussion Note: None recorded. Patient educational handouts: No information available. Plan of Care Reminders Provider Appointments None recorded. Lab Glucose, Fingerstick, Blood 05/26/2019 [facility] HbA1C (Hemoglobin a1C), Blood 05/26/2019 [facility] Laboratory Microalbumin/creatinine, Ratio, Urine 05/26/2019 [facility] Laboratory CBC W/ Auto Diff 05/26/2019 [facility] Laboratory CMP, Serum or Plasma 05/26/2019 [facility] Laboratory Lipid Panel, Serum 05/26/2019 [facility] PTH (Parathyroid Hormone), Intact, Serum or Plas ma 05/26/2019 [facility] Laboratory Referral None recorded. Procedures None recorded. Surgeries [...] twice a day by oral route. V-R Rwixrel-Vxzpqtzlz-Sgzi 1000 mg-400 m g-15 mg tablet Take [...] ft 8 in 176 lbs 26.8 kg/m2 (1) 162/80 mm[H g] (2) 138/70 mm[Hg] Lab Results None recorded. Allergies Code Code System Name Reaction Severity Status Onset 3640 RxNorm Doxycycline Facial Swelling Active 14794 RxNorm Lisinopril Cough Active Problems Name Status [...] Status Former Smoker (1 PPD) Past Encounters 05/26/2019 Type 2 Diabetes Mellitus; Hypertensive Heart and Renal Disease; Chronic Kidney Disease Stage 3; Mixed Hyperlipidemia; Long-term Current Use of Anticoagulant; Gastroesophageal Reflux Disease; Peripheral Edema; Influenza Vaccination Jero Anderson Jr, MD: [id number] [facility], [facility] [place] [address], [place] [address], Ph. History of Present Illness Diabetes F/U [...] coronary artery disease. Risk Factors: diabetes, hypertension Note:{{Yes|No}} Review of Systems Comprehensive General Adult ROS, Diabetes F/U ROS Reported By: Patient Constitutional: Constitutional: no significa nt weight gain, no significant weight loss Cardiovascular: Cardiovascular: no chest ana n, no shortness of breath when walking Respiratory: Respiratory: no cough, no wh eezing, no shortness of breath Endocrine: Endocrine: no fatigue Physical Exam General [...]
[2020-04-22 11:57] LABS: BASOPHILS % 0.1 % (0.0-1.0); HEMATOCRIT 43.8 % (38.2-49.6); LYMPHOCYTES # (AUTO) 0.7 (1.0-3.2); LYMPHOCYTES % 3.2 % (18.0-39.1); MEAN CORPUSCULAR HEMOGLOBIN 31.9 pg (28-32); MEAN CORPUSCULAR VOLUME 99.8 fL (81-99); MONOCYTES # (AUTO) 1.4 (0.2-0.8); MONOCYTES % 6.9 % (4.4-11.3); NEUTROPHILS % 88.9 % (38.7-80.0); PLATELET COUNT 252 x10e3/uL (140-360); RED BLOOD COUNT 4.39 x10e6/uL (4.3-5.7); RED CELL DISTRIBUTION WIDTH 13.3 % (11.7-14.4)
[2020-04-22] MEDS ORDERED: DIATRIZOATE MEGL/DIATRIZOA SOD 30 ML BTL PO ONE (12:03)
[2020-04-22 12:18] LABS: ALBUMIN 4.3 g/dL (3.5-5.0); ALBUMIN/GLOBULIN RATIO 1.3 (0.8-2.0); ANION GAP 17.8 mmol/L (8-16); CALCIUM 9.3 mg/dL (8.4-10.2); CREATININE, SERUM 2.08 mg/dL (0.72-1.25); POTASSIUM 4.8 mmol/L (3.5-5.1)
--- NOTE | 2020-04-22 12:56 | Diagnostic Imaging Report ---
EXAMINATION: Head CT HISTORY: 84-year-old female with dysphagia, difficulty swallowing, evaluate for acute stroke. COMPARISON: Head CT 05/01/2018 TECHNIQUE: Helical axial images of the head were obtained. Reformatted coronal and sagittal images from the axial data. Dose modulation, iterative reconstruction, and/or weight based adjustment of the mA/kV was utilized to reduce the radiation dose to as low as reasonably achievable. Image quality: Motion/streaking artifact limits the evaluation of the skull base and posterior cranial fossa. FINDINGS: Parenchyma: 1. Unchanged cortical subcortical encephalomalacia in the right superior parietal lobe is/post central gyrus. 2. Also unchanged mild chronic microvascular ischemic changes and small chronic lacunar infarcts in the hook radiata, head and body of the right caudate nucleus, left caudate and left subinsular region. 3. No mass or hemorrhage. No CT evidence of acute territorial vascular insult. Extra-axial spaces: No abnormal density. No extra-axial fluid collections Brain volume: Normal for age. Ventricles: No hydrocephalus or displacement. Arteries: No density suggestive of thrombus. Dural sinuses: No abnormal density. Foramen magnum: No mass, Chiari malformation, or basilar invagination. Sella: No obvious mass. Paranasal/mastoid sinuses: Imaged portions unremarkable. Skull/Scalp: No lytic or blastic lesions. No fractures. IMPRESSION: 1. No acute intracranial hemorrhage or CT evidence of acute territorial cortical infarct. 2. Mild white matter chronic microvascular ischemic changes and small chronic lacunar infarcts, unchanged compared to head CT of 05/01/18. Superimposed acute infarction cannot be excluded, if clinical concern remains consider brain MRI for further evaluation. Signed by: Dr. Cee Crum M.D. on 04/22/2020 12:52 PM
--- NOTE | 2020-04-22 13:09 | Diagnostic Imaging Report ---
EXAM: CT Chest WITHOUT intravenous contrast 04/22/2020 12:27 PM INDICATION: Dysphagia. Concern for esophageal stricture COMPARISON: CT dated 05/11/2018 TECHNIQUE: Chest was scanned utilizing a multidetector helical scanner from the lung apex through the level of the adrenal glands without administration of IV contrast. Coronal and sagittal reformations were obtained. Routine protocol was performed. Oral contrast was given. IV CONTRAST: None RADIATION DOSE: Total DLP: 581 mGy*cm. Dose modulation, iterative reconstruction, and/or weight based adjustment of the mA/kV was utilized to reduce the radiation dose to as low as reasonably achievable. COMPLICATIONS: None FINDINGS: LINES/ TUBES: None. LUNGS AND AIRWAYS: Similar to the prior exam there are severe centrilobular upper lobe predominant emphysematous changes with multifocal areas of scarring. Lower lobe interstitial scarring and cystic change is also stable. No definite focal superimposed infiltrate or consolidation. No suspicious pulmonary nodule or mass. PLEURA: Negative for pleural effusion or pneumothorax. Previously identified trace left pleural effusion is no longer visualized. HEART AND MEDIASTINUM: The thyroid gland is normal. No mediastinal, hilar or axillary lymphadenopathy. The heart is normal in size.. Trace pericardial fluid is noted. Diffuse atherosclerotic changes of the thoracic aorta are noted extending from the aortic valve. Contrast is identified within the esophagus extending to the proximal portion suggestive of reflux. There is mild distal esophageal wall thickening with a small to moderate hiatal hernia. Contrast is identified within the stomach. UPPER ABDOMEN: Contrast is identified within the stomach. BONES: No acute osseous abnormality. SOFT TISSUES: Unremarkable. IMPRESSION: 1. Stable appearance of severe centrilobular and paraseptal upper lobe predominant emphysematous changes with lower lobe predominant interstitial scarring and cystic change. 2. No definite focal superimposed acute consolidation or infiltrate. 3. Oral contrast is identified throughout the esophagus suggestive of reflux. Negative for obstruction as contrast is identified within the stomach. Moderate hiatal hernia is noted with mild distal esophageal wall thickening. Consider direct inspection for further evaluation if clinically indicated. 4. Stable extensive calcifications of the thoracic aorta. Signed by: Salvatore Orr MD on 04/22/2020 1:05 PM
[2020-04-22] MEDS ORDERED: PIPERACILLIN/TAZO 4.5 GM 100 ML IV STA (13:29)
--- OUTSIDE RECORDS SUMMARY | 2020-04-22 13:37 | XMS REPORT | Continuity of Care Document ---
Author Author [facility] t Organization [facility] Address [address] [place] [address] Phone Unavailable Care Team Providers Care Fork Operator Name Role Phone NONSTAFF PCP Unavailable COLIN RANKIN Attphys Unavailable Ulisses LIGHT Attphys Unavailable VINCENT ASTUDILLO Attphys Unavailable BAL RANKIN Attphys Unavailable RANKINBAL Admphys Unavailable Payers Payer Name Policy Type Policy Number Effective Date Expiration Date Khanh Emmanuel [id number] 2018 00:00:00 MANDI Driscoll [facility] Problems Condition Name Condition Details Condition Category Status Onset Date Resolution Date Last Treatment Date Treating Clinician Comments Source 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 Problem Active 2019-05-26 00:00:00 [facility] Senile purpura Senile Purpura Problem Active 2019-02-19 00:00:00 [facility] Osteoarthritis of knee Osteoarthritis of Knee Problem Active 2018-08-21 00:00:00 [facility] Long-term current use of anticoagulant Long-term Current Use of Anticoagulant Problem Active 2018-05-27 00:00:00 [facility] Impaired glucose tolerance Impaired Glucose Tolerance Problem Active 2018-05-16 00:00:00 [facility] Chronic obstructive lung disease Chronic Obstructive Lung Diseas e Problem Active 2018-05-15 00:00:00 [facility] Gastroesophageal reflux disease Gastroesophageal Reflux Disease Pro blem Active 2018-05-15 00:00:00 [facility] 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 Problem Active 2018-03-05 00:00:00 [facility] Basal cell carcinoma of skin Basal Cell Carcinoma of Skin Problem Active 2018-01-03 00:00:00 [facility] History of angioplasty of carotid artery History of An gioplasty of Carotid Artery Problem Active 2017-08-23 00:00:00 Gopal hall [facility] Hyperkalemia Hyperkalemia Problem Active 2017-08-13 00:00:00 [facility] Type 2 diabetes mellitus Type 2 Diabetes Mellitus Problem Acti ve 2017-08-10 00:00:00 [facility] Peripheral circulatory disorder associated with type 2 diabetes mellitus Peripheral Circulatory Disorder Associated with Type 2 Diabetes Mellitus Problem Active 2017-08-10 00:00:00 [facility] Peripheral venous insufficiency Peripheral Venous Insufficiency Pro blem Active 2017-08-10 00:00:00 [facility] Foot callus Foot Callus Problem Active 2017-08-10 00:00:00 [facility] Peripheral edema Peripheral Edema Problem Active 2017-08-10 00:00:00 [facility] History of Malignant melanoma History of Malignant Melanoma Problem Active 2017-08-10 00:00:00 [facility] History of cerebrovascular accident History of Cerebrovascular A ccident Problem Active 2017-08-10 00:00:00 Adrian [facility] History of cerebrovascular accident with residual defi cit History of Cerebrovascular Accident with Residual Deficit Problem Active 2017-08-10 00:00:00 [facility] Mixed hyperlipidemia Mixed Hyperlipidemia Problem Active [facility]00 [facility] Chronic kidney disease stage 3 Chronic Kidney Disease Stage 3 Probl em Active 2017-05-11 00:00:00 [facility] 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 Disease Due to Type 2 Diabetes Mellitus Problem Active 2017-05-11 00:00:00 [facility] Chest pain Chest pain Problem Active [facility] Stricture of esophagus Esophageal stricture Problem Active [facility] Left bundle branch block (LBBB) LBBB (left bundle branch block) Pro blem Active [facility] Hypertension Hype rtension Active 01/31/2013 [facility] Problem Active 2013-01-31 12:01:14 Dereck Chavez Hypercholesterolemia Hype rcholesterolemia Active 01/31/2013 [facility] Problem Active 2013-01-31 12:01:14 Jeanie Chavez Carotid Artery Stenosis Akins tid Artery Stenosis Active 01/31/2013 [facility] Problem Active 2013-01-31 12:01: 14 Jeanie Chavez 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 Artery Stenosis - With Cerebral Infarction Active 01/31/2013 [facility] Problem Active 2013-01-31 12:01:14 Lennie Chavez Carotid artery occlusion Carotid Artery Occlusion Problem Acti ve 2017-08-10 00:00:00 2017-08-13 00:00:00 [facility] Allergies, Adverse Reactions, Alerts Allergy Name Allergy Type Status Severity Reaction(s) Onset Date Inacti ve Date Treating Clinician Comments Source Doxycycline Allergy to Substance Active Severe 2019-01-12 00:00:00 [facility] TRIGLYCERIDES Allergy to Substance Active 2019-01-12 00:00: 00 [facility] Lisinopril Allergy to substance Active Cough [facility] No Known Drug Allergies No Known Drug Allergies Active Jeanie Chavez Family History Family Member Diagnosis Comments Start Date Stop Date Source Unknown Family Member Family History 2013-01-03 11:18:14 2 11:18:14 Jeanie Chavez Social History Social Habit Start Date Stop Date Quantity Comments Source Social History 2013-01-31 12:01:14 2013-01-31 12:01:14 Jeanie Chavez Smoking Status Start Date Stop Date Source Former Smoker [facility] ractice Medications Ordered Medication Name Filled [...] day by inhalation route for 100 days. [facility] albuterol sulfate HFA 90 mcg/actuation a erosol inhaler Inhale 2 puffs every 4 hours by inhalation route. albuterol sulfate HFA 90 mcg/actuation a erosol inhaler Inhale 2 puffs every 4 hours by inhalation route. No 2puff(s) Q4H albuterol sulfate HFA 90 mcg/actuation a erosol inhaler Inhale 2 puffs every 4 hours by inhalation route. [facility] atorvastatin 20 mg tablet Take 1 tablet every day by o ral route. atorvastatin 20 mg tablet Take 1 tablet every day by oral route. No 1 Q1D atorvastatin 20 mg tablet Take 1 tablet every day by oral route. [facility] clopidogrel 75 mg tablet TAKE ONE (1) TABLET(S) BY KAITLYNN TH ONCE A DAY. clopidogrel 75 mg tablet TAKE ONE (1) TABLET(S) BY MOUTH ONCE A DAY. No clopidogrel 75 mg tablet TAKE ONE (1) TABLET(S) BY MOUTH ONCE A DAY. [facility] finasteride 5 mg tablet Take 1 tablet every day by ora l route for 90 days. finasteride 5 mg tablet Take 1 tablet every day by oral route for 90 days. No 1 Q1D finasteride 5 m g tablet Take 1 tablet every day by oral route for 90 days. [facility] Men 50 Plus Multivitamin TAKE 1 A DAY Men 50 Plus Multivitamin TAKE 1 A DAY No Men 50 Plus Multivitamin TAKE 1 A DAY [facility] nifedipine ER 30 mg tablet,extended rele ase TAKE ONE (1) TABLET(S) BY MOUTH ONCE A DAY. nifedipine ER 30 mg tablet,extended rele ase TAKE ONE (1) TABLET(S) BY MOUTH ONCE A DAY. No nifedi pine ER 30 mg tablet,extended release TAKE ONE (1) TABLET(S) BY MOUTH ONCE A DAY. [facility] pantoprazole 40 mg tablet,delayed releas e Take 1 tablet every day by oral route in the morning. pantoprazole 40 mg tablet,delayed releas e Take 1 tablet every day by oral route in the morning. No 1 Q1D pantoprazole 40 mg tablet,delayed release Take 1 tablet every day by oral route in the morning. [facility] Tylenol Arthritis Pain 650 mg tablet,ext [...] hours by oral route for 90 days. [facility] V-R Rebxjip-Fkdgtpino-Aptv 1000 mg-400 m g-15 mg tablet Take 1 tablet every day by oral route for 90 days. V-R Xcsnhwt-Bbmvlrurm-Xxvn 1000 mg-400 m g-15 mg tablet Take 1 tablet every day by oral route for 90 days. No 1 Q1D V-R Ynzxlhd-Enaksjuqa-Iqam 1000 mg-400 mg-15 mg tablet Take 1 tablet every day by oral route for 90 days. [facility] ractice Vitamin C 1,000 mg tablet Take 1 tablet every day by o ral route for 90 days. Vitamin C 1,000 mg tablet Take 1 tablet every day by oral route for 90 days. No 1 Q1D Vitamin C 1,00 0 mg tablet Take 1 tablet every day by oral route for 90 days. [facility] Vitamin D3 50 mcg (2,000 unit) capsule T dianelys 1 capsule every day by oral route for 90 days. Vitamin D3 50 mcg (2,000 unit) capsule T dianelys 1 capsule every day by oral route for 90 days. No 1capsule(s) Q1D Vitamin D3 50 mcg (2,000 unit) capsule Take 1 capsule every day by oral route for 90 days. [facility] Albuterol Sulfate (Ventolin Hfa) 18 Gm Hfa.aer.ad Albu terol Sulfate (Ventolin Hfa) 18 Gm Hfa.aer.ad Yes 1 Use As Directed [facility] Atorvastatin Calcium 20 Mg Tablet Atorvastatin Calcium 20 Mg Tablet Yes 20 Daily [facility] Clopidogrel Bisulfate (Clopidogrel) 75 Mg Tablet Clopi dogrel Bisulfate (Clopidogrel) 75 Mg Tablet Yes 75 Daily [facility] Duoneb Duoneb Yes 1 Every 4 Hours as n eeded for Shortness Of Breath [facility] Famotidine (Pepcid) 20 Mg Tablet Famotidine (Pepcid) 20 Mg Tablet Yes 20 Twice A Day [facility] Loratadine/Pseudoephedrine (Allergy Relief D-24 Tablet ) 1 Each Tab.er.24h Loratadine/Pseudoephedrine (Allergy Relief D-24 Tablet) 1 Each Tab.er.24h Yes 1 Daily [facility] Nifedipine Xl Nifedipine Xl Yes 30 Daily [facility] Salmeterol Xinafoate/Fluticasone (Advair 500/50*) 1 Ea Aerp Salmeterol Xinafoate/Fluticasone (Advair 500/50*) 1 Ea Aerp Yes 1 Twice A Day [facility] Benzonatate (Tessalon Perle) 100 Mg Capsule, 100 Mg Or al Benzonatate (Tessalon Perle) 100 Mg Capsule, 100 Mg Oral 2019-01-12 00:00:00 No 100 Every 4 Hours as needed for Cough [facility] Ciclopirox 30 Gm Gel..gram., 30 Mg Oral Ciclopirox 30 Gm Gel ..gram., 30 Mg Oral 2019-01-12 00:00:00 No 30 As Needed [facility] Furosemide 20 Mg Tablet, 20 Mg Oral Furosemide 20 Mg Tablet, 20 Mg Oral 2019-01-12 00:00:00 No 20 Daily [facility] Prednisone 5 Mg Tablet, 5 Mg Oral Prednisone 5 Mg Tablet, 5 Mg O ral 2019-01-12 00:00:00 No 5 [facility] Albuterol Sulfate (Proair Hfa Inhaler*) 8.5 Gm Inh, 2 Inh Albuterol Sulfate (Proair Hfa Inhaler*) 8.5 Gm Inh, 2 Inh 2018-05-12 00:00:00 No 2 Every 4 Hours as needed for Shortness Of Breath [facility] Doxycycline Monohydrate 100 Mg Tablet, 100 Mg Oral Dox ycycline Monohydrate 100 Mg Tablet, 100 Mg Oral 2018-05-12 00:00:00 No 100 T wice A Day [facility] Lisinopril 10 Mg Tablet, 10 Mg Oral Lisinopril 10 Mg Tablet, 10 Mg Oral 2018-05-09 00:00:00 No 10 Daily [facility] Immunizations Ordered Immunization Name Filled Immunization Name Date Status Comments Source influenza, high dose seasonal influenza, high dose seasonal 2018 10:20:01 Completed [facility] influenza, unspecified formulation influenza, unspecified fo rmulation 2018-07-02 00:00:00 [facility] Tdap Tdap 2017-05-30 14:13:50 Completed [facility] pneumococcal conjugate PCV 13 pneumococcal conjugate PCV 13 2016 11:56:50 Completed [facility] influenza, high dose seasonal influenza, high dose seasonal 2016 11:48:52 Completed [facility] pneumococcal polysaccharide PPV23 pneumococcal polysaccharid e PPV23 2016-05-19 00:00:00 [facility] pneumococcal polysaccharide PPV23 pneumococcal polysaccharid e PPV23 2006-06-05 00:00:00 Completed [facility] Vital Signs Vital Name Observation Time Observation Value Comments Source BP Diastolic 2019-08-18 00:00:00 72 mm[Hg] [facility] Height 2019-08-18 00:00:00 68 [in_i] [facility] BMI (Body Mass Index) 2019-08-18 00:00:00 27.8 kg/m2 [facility] BP Systolic 2019-08-18 00:00:00 174 mm[Hg] [facility] Body Weight 2019-08-18 00:00:00 183 [lb_av] [facility] BP Diastolic 2019-05-26 00:00:00 80 mm[Hg] [facility] Height 2019-05-26 00:00:00 68 [in_i] [facility] BMI (Body Mass Index) 2019-05-26 00:00:00 26.8 kg/m2 [facility] BP Systolic 2019-05-26 00:00:00 162 mm[Hg] [facility] Body Weight 2019-05-26 00:00:00 176 [lb_av] [facility] BP Diastolic 2019-02-19 00:00:00 72 mm[Hg] [facility] Height 2019-02-19 00:00:00 68 [in_i] [facility] BMI (Body Mass Index) 2019-02-19 00:00:00 27.1 kg/m2 [facility] BP Systolic 2019-02-19 00:00:00 148 [...] Family Practice Height 2017-05-30 00:00:00 68 [in_i] [facility] BMI (Body Mass Index) 2017-05-30 [...] Practice BP Diastolic 2017-02-09 00:00:00 82 mm[Hg] [facility] Height 2017-02-09 00:00:00 68 [in_i] [facility] BMI (Body Mass Index) 2017-02-09 00:00:00 28.4 kg/m2 [facility] BP Systolic 2017-02-09 00:00:00 140 mm[Hg] [facility] Body Weight 2017-02-09 00:00:00 187 [lb_av] [facility] Procedures Procedure Date / Time Performed Performing Clinician [facility] e EGD with biopsy 2019-01-13 00:00:00 REMINGTON LOPEZ [facility] Gastrointestinal Surgery 2018-09-03 00:00:00 [facility] X-ray of chest, two views 2018-08-02 00:00:00 VINCENT ASTUDILLO CH [facility] X-ray of chest, two views 2018-05-11 00:00:00 TIMUR MORENO [facility] Computed tomography of chest without contrast 2018-05-11 00:00:0 0 BAL RANKIN [facility] EGD BIOPSY SINGLE/MULTIPLE 2018-05-11 00:00:00 REMINGTON LOPEZ [facility] ESOPH EGD DILATION <30 MM 2018-05-11 00:00:00 REMINGTON LOPEZ [facility] Limited non-vascular ultrasound of extremity 2018-05-04 00:0 0:00 FABIANA RANDHAWA [facility] Computed tomography of chest without contrast 2018-05-03 00:00:0 0 BAL RANKIN [facility] Computed tomography of brain without radiopaque contrast 201 04-10-29 00:00:00 TIMUR MORENO [facility] X-ray of chest, two views 2018-05-01 00:00:00 TIMUR MORENO [facility] Gastrointestinal Surgery 2017-09-03 00:00:00 [facility] DUPLEX SCAN OF EXTRACRANIAL ARTERIES 2017-08-10 00:00:00 [facility] Planned Activity Planned Date Details Comments Source Diagnostic Test Pending 2020-03-26 00:00:00 HbA1c (hemoglobi n A1c), blood [code = HbA1c (hemoglobin A1c), blood] [facility] Pending 2020-03-26 00:00:00 microalbumin/cre atinine, mass ratio, urine [code = microalbumin/creatinine, mass ratio, urine] [facility] Diagnostic Test Pending 2020-03-26 00:00:00 lipid panel, ser um [code = lipid panel, serum] [facility] Diagnostic Test Pending 2020-03-26 00:00:00 CMP, serum or pl asma [code = CMP, serum or plasma] [facility] Diagnostic Test Pending 2020-03-26 00:00:00 CBC w/ auto diff [code = CBC w/ auto diff] [facility] Diagnostic Test Pending 2020-03-26 00:00:00 TSH, serum or pl asma [code = TSH, serum or plasma] [facility] Diagnostic Test Pending 2020-03-26 00:00:00 PSA, serum or pl asma [code = PSA, serum or plasma] [facility] Diagnostic Test Pending 2020-03-26 00:00:00 urinalysis, dips tick [code = urinalysis, dipstick] [facility] Instructions [facility] Encounters Start Date/Time End Date/Time Encounter Type Admission Type Attendi [facility] Care Department Encounter ID Source 2020-03-26 00:00:00 2020-03-26 00:00:00 Jero Anderson Jr, MD: [id number], [facility] [address] [address], Ph. [facility]_HOU_Hobby [id number] [facility] 2019-12-05 00:00:00 2019-12-05 00:00:00 Jero Anderson Jr, MD: [address] [address], Ph. [facility] - _HOU_Hobby [id number] [facility] 2019-08-18 00:00:00 2019-08-18 00:00:00 Jero Anderson Jr, MD: [address], [place] [address], Ph. [facility] [id number] [facility] 2019-05-26 00:00:00 2019-05-26 00:00:00 Jero Anderson Jr, MD: [address], [place] [address], Ph. [facility] - VFP-Hobby [id number] [facility] 2019-02-19 00:00:00 2019-02-19 00:00:00 Jero Anderson Jr, MD: [address], [place] [address], Ph. [facility] - [facility] [id number] [facility] 2019-01-16 00:00:00 2019-01-16 00:00:00 Jero Anderson Jr, MD: [address], [place] [address], Ph. [facility] - [facility] [id number] [facility] 2019-01-12 12:34:00 2019-01-13 17:30:00 Discharged Inpatient (obs) 1 JEREMY LIGHT [facility] [id number] [facility] 2018-11-20 00:00:00 2018-11-20 00:00:00 Jero Anderson Jr, MD: [address], [place] [address], Ph. [facility] - [facility]-Hobby [id number] [facility] 2018-08-02 09:37:00 2018-08-02 09:37:00 Registered Clinic 3 VINCENT ASTUDILLO [facility] [id number] [facility] 2018-05-11 12:23:00 2018-05-12 18:29:00 Discharged Inpatient (obs) 1 BAL RANKIN [facility] [id number] [facility] 2018-05-02 00:36:00 2018-05-09 17:42:00 Discharged Inpatient 1 BAL RANKIN [facility] [id number] [facility] 2017-12-05 00:00:00 2017-12-05 00:00:00 Jero Anderson Jr, MD: [address], [place] [address], Ph. [facility] - [facility] [id number] [facility] 2017-11-08 00:00:00 2017-11-08 00:00:00 Jero Anderson Jr, MD: [address], [place] [address], Ph. [facility] [place] [facility] - [facility]-Hobby [id number] [facility] 2017-09-20 00:00:00 2017-09-20 00:00:00 Jero Anderson Jr, MD: [address], [place] [address], Ph. [facility] [place] - [facility] - [facility] [id number] [facility] 2017-08-23 00:00:00 2017-08-23 00:00:00 Jero Anderson Jr, MD: [address], [place] [address], Ph. [facility] [place] - [facility] - [facility] [id number] [facility] 2017-08-10 00:00:00 2017-08-10 00:00:00 Jero Anderson Jr, MD: [address], [place] [address], Ph. [facility] [place] - [facility] - [facility] [id number] [facility] 2017-05-30 00:00:00 2017-05-30 00:00:00 Nadine Simmons MD: [address], [place] [address], Ph. [facility] - [facility] [id number] [facility] 2017-05-11 00:00:00 2017-05-11 00:00:00 Caron Brown MD: [address] [place] [address], Ph. [facility] - [facility] [id number] [facility] 2017-02-09 00:00:00 2017-02-09 00:00:00 Jero Anderson Jr, MD: [address] [place] [address], Ph. [facility] - [facility] [id number] [facility] 2013-01-31 07:01:32 2013-01-31 07:01:14 Outpatient MARIANO MARIANO [id number] 2013-01-03 06:18:32 2013-01-03 06:18:14 Outpatient MARIANO MARIANO [id number] Results Test Description Test Time Test Comments Results Result Comments Source CT CHEST WO 2020-04-22 12:57:00 [place] [address] Patient Name: DEMOND ORTIZ MR #: [id number] : 1935 Age/Sex: 84/M Req #: [id number] Adm Physician: Ordered by: COLIN RANKIN DO Report #: [id number] Location: ER Room/Bed: Procedure: [id number] CT/CT CHEST WO Exam Date: 04/22/20 Exam Time: 1227 REPORT STATUS: Signed EXAM: CT Chest WITHOUT intravenous contrast 04/22/2020 12:27 PM INDICATION: Dysphagia. Concern for esophageal stricture COMPARISON: CT dated 05/11/2018 TECHNIQUE: Chest was scanned utilizing a multidetector helical scanner from the lung apex through the level of the adre nal glands without administration of IV contrast. Coronal and sagittal reformations were obtained. Routine protocol was performed. Oral contrast was given. IV CONTRAST: None RADIATION DOSE: Total DLP: 581 mGy*cm. Dose modulation, iterative reconstruction, and/or weight based adjustment of the mA/kV was utilized to reduce the radiation dose to as low as reasonably achievable. COMPLICATIONS: None FINDINGS: LINES/ TUBES: None. LUNGS AND AIRWAYS: Similar to the prior exam there are severe centrilobular upper lobe predominant emphysematous changes with multifocal areas of scarring. Lower lobe interstitial scarring and cystic change is also stable. No definite focal superimposed infiltrate or consolidation. No suspicious pulmonary nodule or mass. PLEURA: Negative for pleural effusion or pneumothorax. Previously identified trace left pleural effusion is no longer visualized. HEART AND MEDIASTINUM: The thyroid gland is normal. No mediastinal, hilar or axillary lymphadenopathy. The heart is normal in size.. Trace pericardial fluid is noted. Diffuse atherosclerotic changes of the thoracic aorta are noted extending from the aortic valve. Contrast is identified within the esophagus extending to the proximal portion suggestive of reflux. There is mild distal esophageal wall thickening with a small to moderate hiatal hernia. Contrast is identified within the stomach. UPPER ABDOMEN: Contrast is identified within the stomach. BONES: No acute osseous abnormality. SOFT TISSUES: Unremarkable. IMPRESSION: 1. Stable appearance of severe centrilobular and paraseptal upper lobe predominant emphysematous changes with lower lobe predominant interstitial scarring and cystic change. 2. No definite focal superimposed acute consolidation or infiltrate. 3. Oral contrast is identified throughout the esophagus suggestive of reflux. Negative for obstruction as contrast is identified within the stomach. Moderate hiatal hernia is noted with mild distal esophageal wall thickening. Consider direct inspection for further evaluation if clinically indicated. 4. Stable extensive calcifications of the thoracic aorta. Signed by: Luis Eduardo Orr MD on 04/22/2020 1:05 PM Dictated By: LUIS EDUARDO ORR MD 1300 Transcribed By: LUCI on 04/22/20 1308 COPY TO: COLIN RNAKIN DO CT BRAIN WO 2020-04-22 12:48:00 [facility] [address] [address] Patient Name: DEMOND ORTIZ MR #: [id number] : 1935 Age/[facility]: 84[id number] Req #: [id number] Adm Physician: Ordered by: COLIN RANKIN DO Report #: [id number] Location: ER Room/Bed: Procedure: [id number] CT/CT BRAIN WO Exam Date: Exam Time: REPORT STATUS: Signed EXAMINATION: Head CT HISTORY: 84-year-old female with dysphagia, difficulty swallowing, evaluate for acute stroke. COMPARISON: Head CT 05/01/2018 TECHNIQUE: Helical axial images of the head were obtained. Reformatted coronal and sagittal images from the axial data. Dose modulation, iterative reconstruction, and/or weight based adjustment of the mA/kV was utilized to reduce the radiation dose to as low as reasonably achievable. Image quality: Motion/streaking artifact limits the evaluation of the skull base and posterior cranial fossa. FINDINGS: Parenchyma: 1. Unchanged cortical subcortical encephalomalacia in the right superior parietal lobe is/post central gyrus. 2. Also unchanged mild chronic microvascular ischemic changes and small chronic lacunar infarcts in the hook radiata, head and body of the right caudate nucleus, left caudate and left subinsular region. 3. No mass or hemorrhage. No CT evidence of acute territorial vascular insult. Extra-axial spaces: No abnormal density. No extra-axial fluid collections Brain volume: Normal for age. Ventricles: No hydrocephalus or displacement. Arteries: No density suggestive of thrombus. Dural sinuses: No abnormal density. Foramen magnum: No mass, Chiari malformation, or basilar invagination. Sella: No obvious mass. Paranasal/mastoid sinuses: Imaged portions unremarkable. Skull/Scalp: No lytic or blastic lesions. No fractures. IMPRESSION: 1. No acute intracranial hemorrhage or CT evidence of acute territorial cortical infarct. 2. Mild white matter chronic microvascular ischemic changes and small chronic lacunar infarcts, unchanged compared to head CT of 05/01/18. Superimposed acute infarction cannot be excluded, if clinical concern remains consider brain MRI for further evaluation. Signed by: Dr. Aidan Crum M.D. on 04/22/2020 12:52 PM Dictated By: AIDAN CRUM MD 1252 Transcribed By: LUCI on 04/22/20 1252 COPY TO: COLIN RANKIN DO Glucose [Mass/volume] in Capillary blood 2019-01-16 11:48:00 Test Item Blood Glucose: mg/dl (test code = Blood Glucose: mg/dl) 96 [facility] PracticeSodium Mhgxf5645-39-91 06:56:00* Test Item Value Reference Range Interpretation Comments Sodium Level (test code = 2951-2) 141 136-145 [facility] CenterPotassium Ykaru9465-41-98 06:56:00* Test Item Value Reference Range Interpretation Comments Potassium Level (test code = 2823-3) 4.3 3.5-5.1 [facility] CenterChloride Bwkbf7476-63-47 06:56:00* Test Item Value Reference Range Interpretation Comments Chloride Level (test code = 2075-0) 114 98-107 H [facility] CenterCarbon Dioxide Btbhf7082-35-80 06:56:00* Test Item Value Reference Range Interpretation Comments Carbon Dioxide Level (test code = 2028-9) 20 22-29 L [facility] CenterAnion Fvm0603-79-38 06:56:00* Test Item Value Reference Range Interpretation Comments Anion Gap (test code = 64692-3) 11.3 8-16 [facility] CenterBlood Urea Skudhgxa5291-43-52 06:56:00* Test Item Value Reference Range Interpretation Comments Blood Urea Nitrogen (test code = 3094-0) 25 7-26 [facility] CenterCreatinine2019-05-13 06:56:00* Test Item Value Reference Range Interpretation Comments Creatinine (test code = 2160-0) 1.30 0.72-1.25 H [facility] CenterBUN/Creatinine Yuvcw2215-65-80 06:56:00* Test Item Value Reference Range Interpretation Comments BUN/Creatinine Ratio (test code = 3097-3) 19 6-25 [facility] CenterEstimat Glomerular Filtration Rate 2019-01-13 06:56:00* Test Item Value Reference Range Interpretation Comments Estimat Glomerular Filtration Rate (test code = 616872790) 52 >60 L Ranges were taken from the National Kidney Disease Education Program and the [facility] Kidney Foundation literature.Reference ranges:60 or greater: Pldngv84-10 ( for 3 consecutive months): Chronic kidney disease 15 or less: Kidney failureCedar Park Regional Medical CenterGlucose Vpobu9075-35-50 06:56:00* Test Item Value Reference Range Interpretation Comments Glucose Level (test code = EQX3267) 84 74-118 [facility] CenterCalcium Lmrqp8270-43-35 06:56:00* Test Item Value Reference Range Interpretation Comments Calcium Level (test code = 71901-3) 8.6 8.4-10.2 [facility] CenterTotal Jcrfdkrmt6101-76-56 06:56:00* Test Item Value Reference Range Interpretation Comments Total Bilirubin (test code = 1975-2) 1.0 0.2-1.2 [facility] CenterAspartate Amino Transf (AST/SGOT) 2019-01-13 06:56:00* Test Item Value Reference Range Interpretation Comments Aspartate Amino Transf (AST/SGOT) (test code = Aspartate Amino Transf (AST/SGOT)) 21 5-34 [facility] CenterAlanine Aminotransferase (ALT/SGPT) 2019-01-13 06:56:00* Test Item Value Reference Range Interpretation Comments Alanine Aminotransferase (ALT/SGPT) (test code = 1742-6) 24 0-55 [facility] CenterTotal Rarfjaz2111-89-94 06:56:00* Test Item Value Reference Range Interpretation Comments Total Protein (test code = 2885-2) 5.9 6.5-8.1 L [facility] CenterAlbumin2019-05-13 06:56:00* Test Item Value Reference Range Interpretation Comments Albumin (test code = 1751-7) 3.2 3.5-5.0 L [facility] CenterGlobulin2019-05-13 06:56:00* Test Item Value Reference Range Interpretation Comments Globulin (test code = 56071-5) 2.7 2.3-3.5 [facility] CenterAlbumin/Globulin Qdouz2751-26-25 06:56:00 * Test Item Value Reference Range Interpretation Comments Albumin/Globulin Ratio (test code = 1759-0) 1.2 0.8-2.0 [facility] CenterAlkaline Ouvogiikwap2355-55-36 06:56:00* Test Item Value Reference Range Interpretation Comments Alkaline Phosphatase (test code = 6768-6) 45 40-150 [facility] CenterTriglycerides Dfdnv2184-63-69 06:56:00* Test Item Value Reference Range Interpretation Comments Triglycerides Level (test code = 2571-8) 86 0-149 [facility] CenterCholesterol Hmqir9908-80-22 06:56:00* Test Item Value Reference Range Interpretation Comments Cholesterol Level (test code = 2093-3) 107 0-199 Less than 200 mg/dL Low Bwjz558 - 239 mg/dL Borderline Wfui849 m g/dl and greater High Risk [facility] CenterLDL Idiejsumyhq9770-38-93 06:56:00* Test Item Value Reference Range Interpretation Comments LDL Cholesterol (test code = 2089-1) 51 60-130 L [facility] CenterHDL Xsnysgaehlp8175-40-04 06:56:00* Test Item Value Reference Range Interpretation Comments HDL Cholesterol (test code = 2085-9) 39 40-60 L [facility] CenterCholesterol/HDL Dlrkc7894-29-32 06:56:00 * Test Item Value Reference Range Interpretation Comments Cholesterol/HDL Ratio (test code = 9830-1) 2.7 3.9-4.7 L [facility] CenterCreatine Legayz3055-83-24 06:52:00* Test Item Value Reference Range Interpretation Comments Creatine Kinase (test code = 2157-6) 89 30-200 [facility] CenterCreatine Kinase QD7166-05-03 06:43:00* Test Item Value Reference Range Interpretation Comments Creatine Kinase MB (test code = 26822-9) 2.40 0-5.0 [facility] CenterTroponin Z6656-14-22 06:43:00* Test Item Value Reference Range Interpretation Comments Troponin I (test code = GBE1355) 0.014 0-0.300 [facility] CenterWhite Blood Rekhp4582-08-86 06:25:00* Test Item Value Reference Range Interpretation Comments White Blood Count (test code = 6690-2) 8.53 4.8-10.8 [facility] CenterRed Blood Hrlgn3995-91-55 06:25:00* Test Item Value Reference Range Interpretation Comments Red Blood Count (test code = 789-8) 4.00 4.3-5.7 L [facility] CenterHemoglobin2019-05-13 06:25:00* Test Item Value Reference Range Interpretation Comments Hemoglobin (test code = 11247-9) 12.7 14.0-18.0 L [facility] CenterHematocrit2019-05-13 06:25:00* Test Item Value Reference Range Interpretation Comments Hematocrit (test code = 4544-3) 38.5 38.2-49.6 [facility] CenterMean Corpuscular Gaxcnx6628-77-26 06:25:00* Test Item Value Reference Range Interpretation Comments Mean Corpuscular Volume (test code = 787-2) 96.3 81-99 [facility] CenterMean Corpuscular Qxchdmjjzv6325-51-82 06:25:00* Test Item Value Reference Range Interpretation Comments Mean Corpuscular Hemoglobin (test code = 785-6) 31.8 28-32 [facility] Hemoglobin Concent 2019-01-13 06:25:00* Test Item Value Reference Range Interpretation Comments Mean Corpuscular Hemoglobin Concent (test code = 786-4) 33.0 31-35 [facility] CenterRed Cell Distribution Rejut5982-61-12 06:25:00* Test Item Value Reference Range Interpretation Comments Red Cell Distribution Width (test code = 13348-3) 13.6 11.7 -14.4 [facility] CenterPlatelet Auunz3318-47-40 06:25:00* Test Item Value Reference Range Interpretation Comments Platelet Count (test code = 777-3) 191 140-360 [facility] CenterNeutrophils (%) (Auto)2019-01-13 06:25:00 * Test Item Value Reference Range Interpretation Comments Neutrophils (%) (Auto) (test code = 05186-5) 67.3 38.7-80.0 [facility] CenterLymphocytes (%) (Auto)2019-01-13 06:25:00 * Test Item Value Reference Range Interpretation Comments Lymphocytes (%) (Auto) (test code = 736-9) 19.0 18.0-39.1 [facility] CenterMonocytes (%) (Auto)2019-01-13 06:25:00* Test Item Value Reference Range Interpretation Comments Monocytes (%) (Auto) (test code = 5905-5) 10.1 4.4-11.3 [facility] CenterEosinophils (%) (Auto)2019-01-13 06:25:00 * Test Item Value Reference Range Interpretation Comments Eosinophils (%) (Auto) (test code = 713-8) 2.3 0.0-6.0 [facility] CenterBasophils (%) (Auto)2019-01-13 06:25:00* Test Item Value Reference Range Interpretation Comments Basophils (%) (Auto) (test code = 706-2) 0.6 0.0-1.0 [facility] CenterIM GRANULOCYTES %2019-01-13 06:25:00* Test Item Value Reference Range Interpretation Comments IM GRANULOCYTES % (test code = IM GRANULOCYTES %) 0.7 0.0- 1.0 [facility] CenterNeutrophils # (Auto)2019-01-13 06:25:00* Test Item Value Reference Range Interpretation Comments Neutrophils # (Auto) (test code = 751-8) 5.7 2.1-6.9 [facility] CenterLymphocytes # (Auto)2019-01-13 06:25:00* Test Item Value Reference Range Interpretation Comments Lymphocytes # (Auto) (test code = 99295-3) 1.6 1.0-3.2 [facility] CenterMonocytes # (Auto)2019-01-13 06:25:00* Test Item Value Reference Range Interpretation Comments Monocytes # (Auto) (test code = 742-7) 0.9 0.2-0.8 H [facility] CenterEosinophils # (Auto)2019-01-13 06:25:00* Test Item Value Reference Range Interpretation Comments Eosinophils # (Auto) (test code = 711-2) 0.2 0.0-0.4 [facility] CenterBasophils # (Auto)2019-01-13 06:25:00* Test Item Value Reference Range Interpretation Comments Basophils # (Auto) (test code = 704-7) 0.1 0.0-0.1 [facility] CenterAbsolute Immature Granulocyte (auto 2019-01-13 06:25:00* Test Item Value Reference Range Interpretation Comments Absolute Immature Granulocyte (auto (jenny t code = Absolute Immature Granulocyte (auto) 0.06 0-0.1 [facility] CenterActivated Partial Thromboplast Time 2019-01-12 12:46:00* Test Item Value Reference Range Interpretation Comments Activated Partial Thromboplast Time (test code = 81196-5) 26.2 23.8-35.5 [facility] CenterProthrombin Oqag4763-40-71 12:45:00* Test Item Value Reference Range Interpretation Comments Prothrombin Time (test code = 5902-2) 13.0 11.9-14.5 [facility] CenterProthromb Time International Ratio 2019-01-12 12:45:00* Test Item Value Reference Range Interpretation Comments Prothromb Time International Ratio (test code = 6301-6) 0.93 Oral Anticoagulant Therapy INR Values:1. Low Intensity Therapy 1.5 - 2.02 . Moderate Intensity Therapy 2.0 - 3.03. High Intensity Therapy(1) 2.5 - 3. 54. High Intensity Therapy(2) 3.0 - 4.05. Panic Value INR > 5.0 [facility] SINGLE (PORTABLE)2019-01-12 11:20:00 [facility] [address] [address] Patient Name: DEMOND ORTIZ MR #: [id number] : 1935 Age/Sex: 83/M Req #: [id number] Adm Physician: Ordered by: JEREMY LIGHT MD Report #: [id number] Location: ER Room/Bed: Procedure: [id number] DX/CHEKhanh T SINGLE (PORTABLE) Exam Date: 01/12/19 Exam Time: 1 110 REPORT STATUS: Signed EXAMIN ATION: CHEST SINGLE (PORTABLE) COMPARISON: Chest x-ray 08/02/2018 INDICATION: Difficulty swallowing, chest pain Chest pain, look for CHF, enl arge Mediastinum 20190112 1110 DISCUSSION: Frontal view of the est obtained [...] COPY TO: JEREMY LIGHT MD CHEST 2 YGAFJ5594-90-21 10:13:00 [address] [address] Patient Name: DEMOND ORTIZ MR #: [id number] : 1935 Age/Sex: 83/M Req #: [id number] Adm Physician: Ordered by: VINCENT ASTUDILLO MD Report #: [id number] Location: RAD Room/Bed: Procedure: [id number] DX/KELSY ST 2 VIEWS Exam Date: Exam [...] Level (test code = 2951-2) 141 136-145 [facility] CenterPotassium Oavqw6984-90-39 05:32:00* Test Item Value Reference Range Interpretation Comments Potassium Level (test code = 2823-3) 4.4 3.5-5.1 [facility] CenterChloride Jbjdn0405-02-42 05:32:00* Test Item Value Reference Range Interpretation Comments Chloride Level (test code = 2075-0) 109 98-107 H [facility] CenterCarbon Dioxide Tvgum8488-01-73 05:32:00* Test Item Value Reference Range Interpretation Comments Carbon Dioxide Level (test code = 2028-9) 21 22-29 L [facility] CenterAnion Nif5687-53-59 05:32:00* Test Item Value Reference Range Interpretation Comments Anion Gap (test code = 56604-0) 15.4 8-16 [facility] CenterBlood Urea Orziecfp8351-37-74 05:32:00* Test Item Value Reference Range Interpretation Comments Blood Urea Nitrogen (test code = 3094-0) 26 7-26 [facility] CenterCreatinine2018-09-09 05:32:00* Test Item Value Reference Range Interpretation Comments Creatinine (test code = 2160-0) 1.33 0.72-1.25 H [facility] CenterBUN/Creatinine Qtmic4444-97-85 05:32:00* Test Item Value Reference Range Interpretation Comments BUN/Creatinine Ratio (test code = 3097-3) 20 6-25 [facility] CenterEstimat Glomerular Filtration Rate 2018-05-12 05:32:00* Test Item Value Reference Range Interpretation Comments Estimat Glomerular Filtration Rate (test code = 76015-9) 51 >60 L Ranges were taken from the National Kidney Disease Education Program and the [facility] Kidney Foundation literature.Reference ranges:60 or greater: Nuxwdd74-70 ( for 3 consecutive months): Chronic kidney disease 15 or less: Kidney failureCedar Park Regional Medical CenterGlucose Chpqo3460-11-10 05:32:00* Test Item Value Reference Range Interpretation Comments Glucose Level (test code = WZA4896) 143 74-118 H [facility] CenterCalcium Vncrx8855-89-12 05:32:00* Test Item Value Reference Range Interpretation Comments Calcium Level (test code = 35222-3) 9.1 8.4-10.2 [facility] CenterWhite Blood Pnbkv0387-80-98 05:18:00* Test Item Value Reference Range Interpretation Comments White Blood Count (test code = 6690-2) 9.51 4.8-10.8 [facility] CenterRed Blood Ypstn5474-62-77 05:18:00* Test Item Value Reference Range Interpretation Comments Red Blood Count (test code = 789-8) 4.00 4.3-5.7 L [facility] CenterHemoglobin2018-09-09 05:18:00* Test Item Value Reference Range Interpretation Comments Hemoglobin (test code = 05631-1) 12.6 14.0-18.0 L [facility] CenterHematocrit2018-09-09 05:18:00* Test Item Value Reference Range Interpretation Comments Hematocrit (test code = 4544-3) 37.8 38.2-49.6 L [facility] CenterMean Corpuscular Ocymou5865-62-03 05:18:00* Test Item Value Reference Range Interpretation Comments Mean Corpuscular Volume (test code = 787-2) 94.5 81-99 [facility] CenterMean Corpuscular Wspxwwlmop4737-39-95 05:18:00* Test Item Value Reference Range Interpretation Comments Mean Corpuscular Hemoglobin (test code = 785-6) 31.5 28-32 [facility]an Corpuscular Hemoglobin Concent 2018-05-12 05:18:00* Test Item Value Reference Range Interpretation Comments Mean Corpuscular Hemoglobin Concent (test code = 786-4) 33.3 31-35 [facility] CenterRed Cell Distribution Vuyhp8021-65-96 05:18:00* Test Item Value Reference Range Interpretation Comments Red Cell Distribution Width (test code = 07487-7) 13.2 11.7 -14.4 [facility] CenterPlatelet Hsokl7106-91-56 05:18:00* Test Item Value Reference Range Interpretation Comments Platelet Count (test code = 777-3) 276 140-360 [facility] CenterNeutrophils (%) (Auto)2018-05-12 05:18:00 * Test Item Value Reference Range Interpretation Comments Neutrophils (%) (Auto) (test code = 63944-9) 86.8 38.7-80.0 H [facility] CenterLymphocytes (%) (Auto)2018-05-12 05:18:00 * Test Item Value Reference Range Interpretation Comments Lymphocytes (%) (Auto) (test code = 736-9) 9.6 18.0-39.1 L [facility] CenterMonocytes (%) (Auto)2018-05-12 05:18:00* Test Item Value Reference Range Interpretation Comments Monocytes (%) (Auto) (test code = 5905-5) 1.9 4.4-11.3 L [facility] CenterEosinophils (%) (Auto)2018-05-12 05:18:00 * Test Item Value Reference Range Interpretation Comments Eosinophils (%) (Auto) (test code = 713-8) 0.0 0.0-6.0 [facility] CenterBasophils (%) (Auto)2018-05-12 05:18:00* Test Item Value Reference Range Interpretation Comments Basophils (%) (Auto) (test code = 706-2) 0.2 0.0-1.0 [facility] CenterIM GRANULOCYTES %2018-05-12 05:18:00* Test Item Value Reference Range Interpretation Comments IM GRANULOCYTES % (test code = IM GRANULOCYTES %) 1.5 0.0- 1.0 H [facility] CenterNeutrophils # (Auto)2018-05-12 05:18:00* Test Item Value Reference Range Interpretation Comments Neutrophils # (Auto) (test code = 751-8) 8.3 2.1-6.9 H [facility] CenterLymphocytes # (Auto)2018-05-12 05:18:00* Test Item Value Reference Range Interpretation Comments Lymphocytes # (Auto) (test code = 94041-1) 0.9 1.0-3.2 L [facility] CenterMonocytes # (Auto)2018-05-12 05:18:00* Test Item Value Reference Range Interpretation Comments Monocytes # (Auto) (test code = 742-7) 0.2 0.2-0.8 [facility] CenterEosinophils # (Auto)2018-05-12 05:18:00* Test Item Value Reference Range Interpretation Comments Eosinophils # (Auto) (test code = 711-2) 0.0 0.0-0.4 [facility] CenterBasophils # (Auto)2018-05-12 05:18:00* Test Item Value Reference Range Interpretation Comments Basophils # (Auto) (test code = 704-7) 0.0 0.0-0.1 [facility] CenterAbsolute Immature Granulocyte (auto 2018-05-12 05:18:00* Test Item Value Reference Range Interpretation Comments Absolute Immature Granulocyte (auto (jenny t code = Absolute Immature Granulocyte (auto) 0.14 0-0.1 H [facility] CenterCT CHEST IC5884-22-57 17:12:00 [address] [address] Patient Name: DEMOND ORTIZ MR #: [id number] : Age/Sex: 82/M Req #: [id number] Adm Physician: BAL THOMPSON MD Ordered by: BAL RANKIN MD Report #: [id number] Location: [facility] Room/Bed: [address] [address] Procedure: [id number] CT/CT CHEST WO Exam Date: 05/11/18 Exam [...] COPY TO: BAL RANKIN MD CHEST 2 MGBEZ2206-45-61 11:36:00 [address] [address] Patient Name: DEMOND ORTIZ MR #: [id number] : 1935 Age/Sex: 82/M Req #: [id number] Adm Physician: Ordered by: TIMUR MORENO MD Report #: [id number] Location: ER Room/Bed: Procedure: [id number] DX/CHEST 2 VIEWS Exam Date: Exam Time: [...] emphysematous and fibrotic changes. Si gned by: Lennie Ag.D. on 05/11/2018 11:40 AM Dictated By: BHUPINDER CONTE MD 1140 T ranscribed By: LUCI on 05/11/18 1140 COPY TO: TIMUR MORENO MD Total Mphwnwerg9471-22-58 11:09:00* Test Item Value Reference Range Interpretation Comments Total Bilirubin (test code = 1975-2) 0.8 0.2-1.2 [facility] CenterAspartate Amino Transf (AST/SGOT) 2018-05-11 11:09:00* Test Item Value Reference Range Interpretation Comments Aspartate Amino Transf (AST/SGOT) (test code = Aspartate Amino Transf (AST/SGOT)) 36 5-34 H [facility] CenterAlanine Aminotransferase (ALT/SGPT) 2018-05-11 11:09:00* Test Item Value Reference Range Interpretation Comments Alanine Aminotransferase (ALT/SGPT) (test code = 1742-6) 53 0-55 [facility] CenterTotal Rdavdxf1320-84-20 11:09:00* Test Item Value Reference Range Interpretation Comments Total Protein (test code = 2885-2) 7.1 6.5-8.1 [facility] CenterAlbumin2018-09-08 11:09:00* Test Item Value Reference Range Interpretation Comments Albumin (test code = 1751-7) 3.4 3.5-5.0 L [facility] CenterGlobulin2018-09-08 11:09:00* Test Item Value Reference Range Interpretation Comments Globulin (test code = 38680-2) 3.7 2.3-3.5 H [facility] CenterAlbumin/Globulin Bzewy9052-58-87 11:09:00 * Test Item Value Reference Range Interpretation Comments Albumin/Globulin Ratio (test code = 1759-0) 0.9 0.8-2.0 [facility] CenterAlkaline Izyxzjfsqve7021-10-52 11:09:00* Test Item Value Reference Range Interpretation Comments Alkaline Phosphatase (test code = 6768-6) 50 40-150 [facility] CenterBlood Qqubxxu2339-65-84 11:42:00* Test Item Value Reference Range Interpretation Comments Blood Culture (test code = 01044093) NO GROWTH AFTER 5 DAYS, FINAL REPORT [facility] Xgzpsml1130-10-75 11:42:00* Test Item Value Reference Range Interpretation Comments Blood Culture (test code = 20680583) NO GROWTH AFTER 5 DAYS, FINAL REPORT [facility] Egktfug0992-75-21 11:42:00* Test Item Value Reference Range Interpretation Comments Blood Culture (test code = 28884600) NO GROWTH AFTER 5 DAYS, FINAL REPORT [facility] CenterClostridium Difficile Toxin A & B 2018-05-09 09:18:00* Test Item Value Reference Range Interpretation Comments Clostridium Difficile Toxin A & B (test code = 340169940) NEGATIVE NEGATIVE Testing on stool aspirate specimens is outside tool and die manager claims since specime n type not validated on this assay.[facility] Clostridium Difficile Toxin A & B7755-80-29 09:18:00* Test Item Value Reference Range Interpretation Comments Clostridium Difficile Toxin A & B (test code = 895535717) NEGATIVE NEGATIVE Testing on stool aspirate specimens is outside tool and die manager claims since specime n type not validated on this assay.[facility] Clostridium Difficile Toxin A & F5404-70-10 09:18:00* Test Item Value Reference Range Interpretation Comments Clostridium Difficile Toxin A & B (test code = 801062184) NEGATIVE NEGATIVE Testing on stool aspirate specimens is outside tool and die manager claims since specime n type not validated on this assay.[facility] Vqrug7066-65-14 05:25:00* Test Item Value Reference Range Interpretation Comments Sodium Level (test code = 2951-2) 139 136-145 [facility] CenterPotassium Cckrg7629-66-45 05:25:00* Test Item Value Reference Range Interpretation Comments Potassium Level (test code = 2823-3) 4.0 3.5-5.1 [facility] CenterChloride Bzgaw1386-95-79 05:25:00* Test Item Value Reference Range Interpretation Comments Chloride Level (test code = 2075-0) 109 98-107 H [facility] CenterCarbon Dioxide Eeffi5798-49-77 05:25:00* Test Item Value Reference Range Interpretation Comments Carbon Dioxide Level (test code = 2028-9) 19 22-29 L [facility] CenterAnion Zby6466-34-41 05:25:00* Test Item Value Reference Range Interpretation Comments Anion Gap (test code = 30541-9) 15.0 8-16 [facility] CenterBlood Urea Rgmtpnbj0841-80-99 05:25:00* Test Item Value Reference Range Interpretation Comments Blood Urea Nitrogen (test code = 3094-0) 16 7-26 [facility] CenterCreatinine2018-09-04 05:25:00* Test Item Value Reference Range Interpretation Comments Creatinine (test code = 2160-0) 1.28 0.72-1.25 H [facility] CenterBUN/Creatinine Vgdeq7700-70-11 05:25:00* Test Item Value Reference Range Interpretation Comments BUN/Creatinine Ratio (test code = 3097-3) 13 6-25 [facility] CenterEstimat Glomerular Filtration Rate 2018-05-07 05:25:00* Test Item Value Reference Range Interpretation Comments Estimat Glomerular Filtration Rate (test code = 49793-5) 54 >60 L Ranges were taken from the National Kidney Disease Education Program and the [facility] [employer] literature.Reference ranges:60 or greater: Gaotew57-74 ( for 3 consecutive months): Chronic kidney disease 15 or less: Kidney failureC[facility] Medical CenterGlucose Yrrmi5995-39-98 05:25:00* Test Item Value Reference Range Interpretation Comments Glucose Level (test code = KCB4869) 98 74-118 [facility] CenterCalcium Akrtk0326-13-43 05:25:00* Test Item Value Reference Range Interpretation Comments Calcium Level (test code = 03918-7) 8.7 8.4-10.2 [facility] CenterWhite Blood Xfaej2445-20-95 05:01:00* Test Item Value Reference Range Interpretation Comments White Blood Count (test code = 6690-2) 10.03 4.8-10.8 [facility] CenterRed Blood Rknfc2457-28-55 05:01:00* Test Item Value Reference Range Interpretation Comments Red Blood Count (test code = 789-8) 3.93 4.3-5.7 L [facility] CenterHemoglobin2018-09-04 05:01:00* Test Item Value Reference Range Interpretation Comments Hemoglobin (test code = 50064-1) 12.5 14.0-18.0 L [facility] CenterHematocrit2018-09-04 05:01:00* Test Item Value Reference Range Interpretation Comments Hematocrit (test code = 4544-3) 36.8 38.2-49.6 L [facility] CenterMean Corpuscular Yjlorz0621-77-58 05:01:00* Test Item Value Reference Range Interpretation Comments Mean Corpuscular Volume (test code = 787-2) 93.6 81-99 [facility] CenterMean Corpuscular Tfxxrjyfkj9993-17-95 05:01:00* Test Item Value Reference Range Interpretation Comments Mean Corpuscular Hemoglobin (test code = 785-6) 31.8 28-32 [facility] CenterMean Corpuscular Hemoglobin Concent 2018-05-07 05:01:00* Test Item Value Reference Range Interpretation Comments Mean Corpuscular Hemoglobin Concent (test code = 786-4) 34.0 31-35 [facility] CenterRed Cell Distribution Cbbsv2408-18-31 05:01:00* Test Item Value Reference Range Interpretation Comments Red Cell Distribution Width (test code = 44830-0) 13.8 11.7 -14.4 [facility] CenterPlatelet Jmenw0968-53-02 05:01:00* Test Item Value Reference Range Interpretation Comments Platelet Count (test code = 777-3) 218 140-360 [facility] CenterNeutrophils (%) (Auto)2018-05-07 05:01:00 * Test Item Value Reference Range Interpretation Comments Neutrophils (%) (Auto) (test code = 04881-9) 73.3 38.7-80.0 [facility] CenterLymphocytes (%) (Auto)2018-05-07 05:01:00 * Test Item Value Reference Range Interpretation Comments Lymphocytes (%) (Auto) (test code = 736-9) 12.1 18.0-39.1 L [facility] CenterMonocytes (%) (Auto)2018-05-07 05:01:00* Test Item Value Reference Range Interpretation Comments Monocytes (%) (Auto) (test code = 5905-5) 9.4 4.4-11.3 [facility] CenterEosinophils (%) (Auto)2018-05-07 05:01:00 * Test Item Value Reference Range Interpretation Comments Eosinophils (%) (Auto) (test code = 713-8) 3.6 0.0-6.0 [facility] CenterBasophils (%) (Auto)2018-05-07 05:01:00* Test Item Value Reference Range Interpretation Comments Basophils (%) (Auto) (test code = 706-2) 0.3 0.0-1.0 [facility] CenterIM GRANULOCYTES %2018-05-07 05:01:00* Test Item Value Reference Range Interpretation Comments IM GRANULOCYTES % (test code = IM GRANULOCYTES %) 1.3 0.0- 1.0 H [facility] CenterNeutrophils # (Auto)2018-05-07 05:01:00* Test Item Value Reference Range Interpretation Comments Neutrophils # (Auto) (test code = 751-8) 7.4 2.1-6.9 H [facility] CenterLymphocytes # (Auto)2018-05-07 05:01:00* Test Item Value Reference Range Interpretation Comments Lymphocytes # (Auto) (test code = 94710-5) 1.2 1.0-3.2 [facility] CenterMonocytes # (Auto)2018-05-07 05:01:00* Test Item Value Reference Range Interpretation Comments Monocytes # (Auto) (test code = 742-7) 0.9 0.2-0.8 H [facility] CenterEosinophils # (Auto)2018-05-07 05:01:00* Test Item Value Reference Range Interpretation Comments Eosinophils # (Auto) (test code = 711-2) 0.4 0.0-0.4 [facility] CenterBasophils # (Auto)2018-05-07 05:01:00* Test Item Value Reference Range Interpretation Comments Basophils # (Auto) (test code = 704-7) 0.0 0.0-0.1 [facility] CenterAbsolute Immature Granulocyte (auto 2018-05-07 05:01:00* Test Item Value Reference Range Interpretation Comments Absolute Immature Granulocyte (auto (jenny t code = Absolute Immature Granulocyte (auto) 0.13 0-0.1 H [facility] CenterVancomycin Level Pazbvx4874-04-56 01:46:00* Test Item Value Reference Range Interpretation Comments Vancomycin Level Trough (test code = 4092-3) 10.5 5.0-10.0 HH Results called to ADEN CEE RN at 0145 on 05/07/18 by Bailee Abarca. RB LILIANE. [facility] CenterVancomycin Level Kfcpwn1666-87-86 01:46:00* Test Item Value Reference Range Interpretation Comments Vancomycin Level Trough (test code = 4092-3) 10.5 5.0-10.0 HH Results called to ADEN CEE RN at 0145 on 05/07/18 by Bailee Abarca. RB LILIANE. [facility] CenterVancomycin Level Ldxnth2113-83-66 01:46:00* Test Item Value Reference Range Interpretation Comments Vancomycin Level Trough (test code = 4092-3) 10.5 5.0-10.0 HH Results called to ADEN CEE RN at 0145 on 05/07/18 by Bailee Abarca. RB LILIANE. [facility] CenterUS EXTREMITY CABAN YVT-AKB5201-08-01 14:22:00 [place] [address] Patient Name: DEMOND ORTIZ MR #: [id number] : 1935 Age/Sex: 82/M Req #: [id number] Adm Physician: BAL RANKIN MD Ordered by: FABIANA RANDHAWA MD Report #: [id number] Location: MED/SURG2 Room/Bed: [facility] Procedure: US/US EXTREMITY CABAN NON-VAS Exam Date: [...] COPY TO: YUE RANDHAWA MD CT CHEST JW1201-55-46 18:51:00 [place] [address] Patient Name: DEMOND ORTIZ MR #: [id number] : 1935 Age/Sex: 82/M Req #: [id number] Adm Physician: BAL RANKIN MD Ordered by: BAL RANKIN MD Report #: [id number] Location: MED/SURG2 Room/Bed: [facility] Procedure: [id number] CT/CT CHEST WO Exam Date: 05/03/18 Exam Time: 1822 REPORT STATUS: Signed EXAM: CT Chest WITHOUT [...] set by the Radiation Protocol [employer] e (RPC). FINDINGS: LINES/ TUBES: None. LUNGS AND [...] BAL KOHLER MD CHEST SINGLE (PORTABLE)2018-05-03 08:07:00 [place] [address] Patient Name: DEMOND ORTIZ MR #: [id number] : 1935 Age/Sex: 82/M Req #: [id number] Adm Physician: BAL RANKIN MD Ordered by: TIMUR MORENO MD Report #: [id number] Location: MED/SURG2 Room/Bed: [facility] Procedure: [id number] DX/[facility] SINGLE (PORTABLE) Exam Date: 05/03/18 Exam [...] Dictated B y: ANABELLA CARDONA MD, MD 08 COPY TO: TIMUR MORENO MD Lactic Acid Ijqmm9720-23-60 23:48:00* Test Item Value Reference Range Interpretation Comments Lactic Acid Level (test code = Lactic Acid Level) 12.2 4.5- 19.8 [facility] CenterLactic Acid Qswes8097-78-37 23:48:00* Test Item Value Reference Range Interpretation Comments Lactic Acid Level (test code = Lactic Acid Level) 12.2 4.5- 19.8 [facility] CenterLactic Acid Rqywz3178-87-25 23:48:00* Test Item Value Reference Range Interpretation Comments Lactic Acid Level (test code = Lactic Acid Level) 12.2 4.5- 19.8 [facility] CenterCHEST 2 KYGRU3458-33-34 21:30:00 [place] [address] Patient Name: DEMOND ORTIZ MR #: [id number] : Age/Sex: 82/M Req #: [id number] Adm Physician: Ordered by: TIMUR MORENO MD Report #: [id number] Location: ER Room/Bed: Procedure: [id number] DX/CHEST 2 VIEWS Exam Date: Exam Time: [...] PY TO: TIMUR MORENO MD Creatine Kinase SS9502-64-47 21:26:00* Test Item Value Reference Range Interpretation Comments Creatine Kinase MB (test code = 80246-6) 1.90 0-5.0 [facility] CenterTrpark [facility] J7159-55-45 21:26:00* Test Item Value Reference Range Interpretation Comments Troponin I (test code = ZFU4308) 0.094 0-0.300 [facility] CenterCreatine Kinase CB9086-07-84 21:26:00* Test Item Value Reference Range Interpretation Comments Creatine Kinase MB (test code = 01207-3) 1.90 0-5.0 [facility] CenterTroponin T6746-73-70 21:26:00* Test Item Value Reference Range Interpretation Comments Troponin I (test code = JBK4513) 0.094 0-0.300 [facility] CenterCT BRAIN UV1734-70-65 21:26:[address], [place], [place] [address] Patient Name: DEMOND ORTIZ MR #: [id number] : Age/Sex: 82/M Req #: [id number] Adm Physician: Ordered by: TIMUR MORENO MD Report #: [id number] Location: ER Room/Bed: Procedure: [id number] CT/CT BRAIN WO Exam Date: 04/04 05/21 [...] 05/01/182130 COPY TO: TIMUR MORENO MD Total Kjwdbljfd5891-61-03 21:19:00* Test Item Value Reference Range Interpretation Comments Total Bilirubin (test code = 1975-2) 1.2 0.2-1.2 [facility] CenterAspartate Amino Transf (AST/SGOT) 2018-05-01 21:19:00* Test Item Value Reference Range Interpretation Comments Aspartate Amino Transf (AST/SGOT) (test code = Aspartate Amino Transf (AST/SGOT)) 20 5-34 [facility] CenterAlanine Aminotransferase (ALT/SGPT) 2018-05-01 21:19:00* Test Item Value Reference Range Interpretation Comments Alanine Aminotransferase (ALT/SGPT) (test code = 1742-6) 20 0-55 [facility] CenterTotal Yzavnsc0366-46-71 21:19:00* Test Item Value Reference Range Interpretation Comments Total Protein (test code = 2885-2) 6.8 6.5-8.1 [facility] CenterAlbumin2018-08-29 21:19:00* Test Item Value Reference Range Interpretation Comments Albumin (test code = 1751-7) 4.0 3.5-5.0 [facility] CenterGlobulin2018-08-29 21:19:00* Test Item Value Reference Range Interpretation Comments Globulin (test code = 55290-5) 2.8 2.3-3.5 [facility] CenterAlbumin/Globulin Ymkrm7274-51-36 21:19:00 * Test Item Value Reference Range Interpretation Comments Albumin/Globulin Ratio (test code = 1759-0) 1.4 0.8-2.0 [facility] CenterAlkaline Dsvnefmhuey9597-28-80 21:19:00* Test Item Value Reference Range Interpretation Comments Alkaline Phosphatase (test code = 6768-6) 49 40-150 [facility] CenterCreatine Oaelgt1532-66-65 21:19:00* Test Item Value Reference Range Interpretation Comments Creatine Kinase (test code = 2157-6) 99 30-200 [facility] CenterCreatine Ytycix7070-42-46 21:19:00* Test Item Value Reference Range Interpretation Comments Creatine Kinase (test code = 2157-6) 99 30-200 [facility] CenterUrine Eopta9502-81-49 21:17:00* Test Item Value Reference Range Interpretation Comments Urine Color (test code = 5778-6) YELLOW YELLOW [facility] CenterUrine Wlmytkt2248-01-87 21:17:00* Test Item Value Reference Range Interpretation Comments Urine Clarity (test code = 64880-5) CLEAR CLEAR [facility] CenterUrine Specific Mgtfrsd3140-50-12 21:17:00 * Test Item Value Reference Range Interpretation Comments Urine Specific [place] (test code = 5811-5) 1.020 1.010-1.02 5 [facility] CenterUrine rG7444-55-03 21:17:00* Test Item Value Reference Range Interpretation Comments Urine pH (test code = 36890-4) 6 5-7 [facility] CenterUrine Leukocyte Jgtkdocy3766-73-32 21:17:00* Test Item Value Reference Range Interpretation Comments Urine Leukocyte Esterase (test code = 5799-2) NEGATIVE NEGATIVE [facility] CenterUrine Xhzxdxj5726-34-74 21:17:00* Test Item Value Reference Range Interpretation Comments Urine Nitrite (test code = 89841-6) NEGATIVE NEGATIVE [facility] CenterUrine Ebwtwji9083-70-35 21:17:00* Test Item Value Reference Range Interpretation Comments Urine Protein (test code = 5804-0) NEGATIVE NEGATIVE [facility] CenterUrine Glucose (UA)2018-05-01 21:17:00* Test Item Value Reference Range Interpretation Comments Urine Glucose (UA) (test code = 2349-9) NEGATIVE NEGATIVE [facility] CenterUrine Kuugsey2615-77-13 21:17:00* Test Item Value Reference Range Interpretation Comments Urine Ketones (test code = 46587-7) NEGATIVE NEGATIVE [facility] CenterUrine Ecoeulhbpeei8019-05-84 21:17:00* Test Item Value Reference Range Interpretation Comments Urine Urobilinogen (test code = 07539-5) 0.2 0.2-1 [facility] CenterUrine Xvancsshw3894-96-86 21:17:00* Test Item Value Reference Range Interpretation Comments Urine Bilirubin (test code = 1978-6) NEGATIVE NEGATIVE [facility] CenterUrine Bmwyv3894-16-51 21:17:00* Test Item Value Reference Range Interpretation Comments Urine Blood (test code = 37651-2) NEGATIVE NEGATIVE [facility] CenterUrine BUX6027-14-04 21:17:00* Test Item Value Reference Range Interpretation Comments Urine WBC (test code = 5821-4) NONE 0-5 [facility] CenterUrine YPC8082-51-63 21:17:00* Test Item Value Reference Range Interpretation Comments Urine RBC (test code = 52816-5) NONE 0-5 [facility] Tswkzgjm6743-80-89 21:17:00* Test Item Value Reference Range Interpretation Comments Urine Bacteria (test code = 86529-0) FEW NONE [facility] CenterUrine Epithelial Fzggw7600-50-44 21:17:00 * Test Item Value Reference Range Interpretation Comments Urine Epithelial Cells (test code = 26876-4) RARE NONE [facility] CenterUrine Wngqd2167-30-54 21:17:00* Test Item Value Reference Range Interpretation Comments Urine Color (test code = 5778-6) YELLOW YELLOW [facility] CenterUrine Ocvulgr3730-78-37 21:17:00* Test Item Value Reference Range Interpretation Comments Urine Clarity (test code = 49883-1) CLEAR CLEAR [facility] CenterUrine Specific Hnixayj3881-81-49 21:17:00 * Test Item Value Reference Range Interpretation Comments Urine Specific [place] (test code = 5811-5) 1.020 1.010-1.02 5 [facility] CenterUrine rL7658-48-34 21:17:00* Test Item Value Reference Range Interpretation Comments Urine pH (test code = 88867-8) 6 5-7 [facility] CenterUrine Leukocyte Xjvpyvyg7640-05-78 21:17:00* Test Item Value Reference Range Interpretation Comments Urine Leukocyte Esterase (test code = 5799-2) NEGATIVE NEGATIVE [facility] Yktmgel1047-06-08 21:17:00* Test Item Value Reference Range Interpretation Comments Urine Nitrite (test code = 65691-0) NEGATIVE NEGATIVE [facility] Ordrper9375-86-62 21:17:00* Test Item Value Reference Range Interpretation Comments Urine Protein (test code = 5804-0) NEGATIVE NEGATIVE [facility] Glucose (UA)2018-05-01 21:17:00* Test Item Value Reference Range Interpretation Comments Urine Glucose (UA) (test code = 2349-9) NEGATIVE NEGATIVE [facility] Mdtbzub6547-59-15 21:17:00* Test Item Value Reference Range Interpretation Comments Urine Ketones (test code = 85994-6) NEGATIVE NEGATIVE [facility] Evdthbqwlold7365-19-24 21:17:00* Test Item Value Reference Range Interpretation Comments Urine Urobilinogen (test code = 77647-5) 0.2 0.2-1 [facility] CenterUrine Wrtinpigb6841-35-88 21:17:00* Test Item Value Reference Range Interpretation Comments Urine Bilirubin (test code = 1978-6) NEGATIVE NEGATIVE [facility] CenterUrine Eazuf8182-81-21 21:17:00* Test Item Value Reference Range Interpretation Comments Urine Blood (test code = 66161-7) NEGATIVE NEGATIVE [facility] CenterUrine YUI3824-26-09 21:17:00* Test Item Value Reference Range Interpretation Comments Urine WBC (test code = 5821-4) NONE 0-5 [facility] CenterUrine NRB8474-54-18 21:17:00* Test Item Value Reference Range Interpretation Comments Urine RBC (test code = 25955-1) NONE 0-5 [facility] CenterUrine Fymbfxyl4425-57-52 21:17:00* Test Item Value Reference Range Interpretation Comments Urine Bacteria (test code = 51593-9) FEW NONE [facility] CenterUrine Epithelial Hpcrc2546-38-57 21:17:00 * Test Item Value Reference Range Interpretation Comments Urine Epithelial Cells (test code = 74948-6) RARE NONE [facility] CenterUrine Ntkue1736-55-89 21:17:00* Test Item Value Reference Range Interpretation Comments Urine Color (test code = 5778-6) YELLOW YELLOW [facility] CenterUrine Nglxafo6160-78-10 21:17:00* Test Item Value Reference Range Interpretation Comments Urine Clarity (test code = 68177-1) CLEAR CLEAR [facility] CenterUrine Specific Izhvpuy2191-16-75 21:17:00 * Test Item Value Reference Range Interpretation Comments Urine Specific [place] (test code = 5811-5) 1.020 1.010-1.02 5 [facility] CenterUrine bL8231-09-73 21:17:00* Test Item Value Reference Range Interpretation Comments Urine pH (test code = 47279-9) 6 5-7 [facility] CenterUrine Leukocyte Zfyvoyxy5169-48-12 21:17:00* Test Item Value Reference Range Interpretation Comments Urine Leukocyte Esterase (test code = 5799-2) NEGATIVE NEGATIVE [facility] CenterUrine Vbrnqhv8345-67-85 21:17:00* Test Item Value Reference Range Interpretation Comments Urine Nitrite (test code = 03926-2) NEGATIVE NEGATIVE [facility] CenterUrine Nxshjcy2454-07-88 21:17:00* Test Item Value Reference Range Interpretation Comments Urine Protein (test code = 5804-0) NEGATIVE NEGATIVE [facility] CenterUrine Glucose (UA)2018-05-01 21:17:00* Test Item Value Reference Range Interpretation Comments Urine Glucose (UA) (test code = 2349-9) NEGATIVE NEGATIVE [facility] CenterUrine Joucggk0145-00-77 21:17:00* Test Item Value Reference Range Interpretation Comments Urine Ketones (test code = 22143-8) NEGATIVE NEGATIVE [facility] CenterUrine Tdmzmaguzupw9177-39-14 21:17:00* Test Item Value Reference Range Interpretation Comments Urine Urobilinogen (test code = 49492-7) 0.2 0.2-1 [facility] CenterUrine Dijdcandp3046-78-97 21:17:00* Test Item Value Reference Range Interpretation Comments Urine Bilirubin (test code = 1978-6) NEGATIVE NEGATIVE [facility] CenterUrine Jevig4259-01-01 21:17:00* Test Item Value Reference Range Interpretation Comments Urine Blood (test code = 03952-9) NEGATIVE NEGATIVE [facility] CenterUrine LJG5158-83-17 21:17:00* Test Item Value Reference Range Interpretation Comments Urine WBC (test code = 5821-4) NONE 0-5 [facility] CenterUrine MAO7927-43-46 21:17:00* Test Item Value Reference Range Interpretation Comments Urine RBC (test code = 22077-5) NONE 0-5 [facility] CenterUrine Mnduinjk4795-31-66 21:17:00* Test Item Value Reference Range Interpretation Comments Urine Bacteria (test code = 50767-1) FEW NONE [facility] CenterUrine Epithelial Qnhvd7459-01-56 21:17:00 * Test Item Value Reference Range Interpretation Comments Urine Epithelial Cells (test code = 79978-3) RARE NONE [facility] CenterComprehensive metabolic 2000 panel - Serum or Ewsvuw5693-43-91 06:32:00* Test Item Value Reference Range Interpretation [...] (test code = ALT) 18 U/L 9-46 [facility]Com[facility] 2000 panel - Serum or [...] gap (test code = anion gap) 10 [facility] - Serum or Plasma [...] (test code = eGFR non-mahsa n mauritanian) 30 mL/min/1.73m2 >60 L total [...] gap (test code = anion gap) 10 [facility]Hem[facility] A[facility]/Hemoglobin.total in Ufglz2748-15-52 15:53:00* Test Item Value Reference Range Interpretation Comments A1C w/EAG (test code = A1C w/EAG) 6.6 % 1.0-5.7 H average blood glucose (test code = average blood glucose) 143 mg/dL [facility] Centerpotassium, ufjxu5484-18-32 17:02:00* Test Item Value Reference Range Interpretation Comments potassium (test code = potassium) 4.4 mEq/L 3.5-5.1 [facility] Centerpotassium, klqdu7757-68-43 17:33:00* Test Item Value Reference Range Interpretation Comments potassium (test code = potassium) 5.4 mEq/L 3.5-5.1 H [facility] CenterLipid 1995 panel - Serum or Rfjgww8640-70-23 12:46:00* Test Item Value Reference Range Interpretation [...] code = LDL calc.) 69 mg/dL 0-130 [facility] CenterBac metabolic 2000 panel - Serum or Gcylvf6248-73-03 18:15:00* Test Item Value Reference Range Interpretation [...] (test code = anion gap) 11 calc [facility] CenterProstate specific Ag [Mass/volume] in Serum or Plasma 2017-05-11 18:15:00* Test Item Value Reference Range Interpretation Comments PSA, total (test code = PSA, total) 1.73 NG/mL <4.00 [facility] CenterHemoglobin A1c/Hemoglobin.total in Gvrqh4638-14-09 17:03:00* Test Item Value Reference Range Interpretation Comments A1C w/EAG (test code = A1C w/EAG) 6.4 % 1.0-5.7 H average blood glucose (test code = average blood glucose) 137 mg/dL [facility]
--- OUTSIDE RECORDS SUMMARY | 2020-04-22 13:37 | XMS REPORT | Continuity of Care Document ---
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 01/31/2013 [facility] Medications Medication Details Route Status Patient Instructions Ordering Provider Order Date Source Clopidogrel Bisulfate 75 MG Oral Tablet ; Start Date: 12/26/2012; End Date: (Active) Active 12/26/2012 [facility] Clopidogrel Bisulfate 75 MG Oral Tablet ; Start Date: 11/07/2012; End Date: (Active) Active 11/07/2012 [facility] Aspirin TABS (Active) Active [facility] Potassium Gluconate TABS (Act darryl) Active [facility] Bi-Flex Regular Strength TABS (Active) Active [facility] Atorvastatin Calcium TABS (Ac tive) Active [facility] AmLODIPine Besylate TABS (Act darryl) Active [facility] Meloxicam TABS (Active) Active [facility] Allergies, Adverse Reactions, Alerts Substance Category Reaction Severity Reaction type Status Date Reported Comments Source No Known Drug Allergies drug a llergy drug aller gy Active [facility] Immunizations No Data Provided for This [...] ADM Date DC Date Status Source AUDIT [id number] 01/03/2013 01/03/2013 [facility] AUDIT [id number] 01/31/2013 01/31/2013 [facility] Procedures No Data Provided for This Section Assessment and Plan No Data Provided for This Section Plan of Care No Data Provided for This Section Social History Social History Date Source Former Smoker (V15.82); (Active) Being A Social Drinker (Active) 01/31/2013 [facility] Family History Value Date S ource No Family history of Stroke Syndrome (Denied) 01/31/2013 [facility] No Family history of Stroke Syndrome (Denied) 01/03/2013 [facility] Advance Directives Order Name Results Value Date Source Advance Directives Advance Dir ectives No Advance Directives available. 01/31/2013 [facility] Advance Directives Advance Dir ectives No Advance Directives available. 01/03/2013 [facility] Functional Status No Data Provided for This Section
--- NOTE | 2020-04-22 15:20 | NUR ---
PT ARRIVED FORM ER. PT IS AAOX3. EDUCATED PT ABOUT FALL PRECAUTIONS. PT VERBALIZED UNDERSTANDING. CALL LIGHT WITH IN EASY REACH. BED IS LOW AND LOCKED. SIDE RAILS X2. ALL SAFETY MEASURES IN PLACE. PT DENIES NEEDS AT THIS TIME.
[2020-04-22] MEDS: SODIUM CHLORIDE 0.9% 1000ML 1,000 ML IV SCH (15:30)
--- NOTE | 2020-04-22 15:30 | NUR ---
IV STAT ONE TIME ZOSYN STARTED PER THE REPORT FROM ER.
[2020-04-22 16:00] VITALS: BP 133/93
--- NOTE | 2020-04-22 16:00 | NUR ---
PAGED DR. RECIO REGARDING NEW CONSULT.
[2020-04-22] MEDS ORDERED: FINASTERIDE5 MG PO (17:42)
[2020-04-22] MEDS ORDERED: ACETAMINOPHEN650 MG RC (17:42)
[2020-04-22] MEDS ORDERED: PANTOPRAZOLE SO40 MG PO (17:42)
[2020-04-22 17:58] VITALS: BP 133/93
[2020-04-22] MEDS ORDERED: AZITHROMYCIN 500MG/NS 250 ML 250 ML IV SCH (18:00)
--- NOTE | 2020-04-22 18:00 | NUR ---
PT OFF UNIT TO RADIOLOGY IN SAFE CONDITION
--- NOTE | 2020-04-22 18:14 | NUR ---
PT IS BACK TO THE UNIT FROM RADIOLOGY. PT DENIES NEEDS AT THIS TIME.
[2020-04-22 18:35] VITALS: BP 133/93
--- NOTE | 2020-04-22 18:55 | Diagnostic Imaging Report ---
CT Abdomen and Pelvis without contrast INDICATION: Lower abdominal pain, ^PAIN ^[id number] ^1800 TECHNIQUE: Thin collimation axial images obtained from the diaphragm to the level of the pubic symphysis without nonionic intravenous contrast. Oral contrast was administered. Dose reduction techniques used: Automated exposure control, adjustment of the mAs and/or kVp according to patient size, standardized low-dose protocol, and/or iterative reconstruction technique. RADIATION DOSE: Total DLP: 506.17 mGy*cm Estimated effective dose: (DLP x 0.015 x size factor) mSv CTDIvol has been reviewed. It is below the limits set by the Radiation Protocol Committee (RPC). COMPARISON: CT chest 04/22/2020. ABDOMEN FINDINGS: Lung Bases: Diffuse centrilobular paraseptal emphysema. Groundglass attenuation of the lung bases is redemonstrated. Stable tiny pericardial effusion. Small hiatal hernia. Liver: Punctate calcification in the right lobe. No soft tissue mass. Gallbladder: Present and appears normal. No ductal dilatation. Pancreas: Diffuse fatty atrophy without mass or ductal dilatation. Spleen: Normal size without mass. Adrenal Glands: No evidence for mass. Kidneys: Right: No renal calculus. No cortical mass or hydronephrosis Left: No renal calculus. No cortical mass or hydronephrosis Lymph Nodes: No lymphadenopathy. Aorta: Normal in diameter and diffusely calcified. 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 There are calcifications throughout the abdominal aorta. No periaortic inflammation. PELVIS FINDINGS: Bowel: Stomach: Mural thickening at the GE junction is redemonstrated. Remainder of the stomach is normal. Small Bowel: Multiple proximal and mid small bowel loops are distended in the left hemiabdomen to a diameter of 3.4 cm. There is no clear transition point. Distal small bowel loops are collapsed. Large Bowel: Enteric contrast present from the cecum to the distal descending colon. Diverticulosis coli. No associated inflammation Appendix: Normal. Bladder: Normal. Ureters: No ureteral dilatation or calculus. Prostate: Measures 3.4 x 4.8 x 4.3 cm contains a single calcification in the center of the transition zone Peritoneum/retroperitoneum: No free fluid or fluid collection. There is haziness of the peritoneum in the anterior midabdomen (series 2, image 30) this is inferior to the transverse colon and is not specific Bones: Mild to moderate degenerative changes at L2-3. No focal osseous lesions. Soft tissues: Unremarkable. IMPRESSION: 1. Multiple distended proximal and mid small bowel loops with enteric contrast in the colon. Findings are suggestive of ileus or low-grade partial small bowel obstruction. 2. Small hiatal hernia with thickening of the GE junction. Recommend further evaluation with endoscopy to exclude underlying mass. 3. Diverticulosis coli. 4. Focal haziness of the anterior peritoneum. A developing omental infarct cannot be excluded. 5. Centrilobular and paraseptal emphysema. 6. Prostate hypertrophy. 7. Atherosclerosis. 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 No aneurysmal dilatation. Signed by: Dr. Sapna Rocha MD on 04/22/2020 6:51 PM
--- NOTE | 2020-04-22 19:00 | NUR ---
BEDSIDE SHIFT REPORT GIVEN TO THE BROADCAST OPERATIONS TECHNICIAN RN. PT DENIED FURTHER NEEDS.
[2020-04-22 20:00] VITALS: BP 129/52
[2020-04-22] MEDS ORDERED: CEFTRIAXONE SOD 1 GM/NS 50 ML 50 ML IV SCH (20:00)
[2020-04-22 21:00] VITALS: BP 129/52
[2020-04-22] MEDS ORDERED: PANTOPRAZOLE SOD 40 MG TABEC PO SCH (21:00)
[2020-04-22] MEDS ORDERED: ALBUTEROL/IPRATROPIUM 3 ML NEB NEB PRN (23:45)
[2020-04-22] MEDS ORDERED: ALBUTEROL SULFATE HFA 8GM INHALATION AEROSOL INH PRN (23:45)
[2020-04-23] VITALS: BP 140/78
[2020-04-23] MEDS: SODIUM CHLORIDE 0.9% 1000ML 1,000 ML IV SCH ×2 (00:43→08:29)
--- NOTE | 2020-04-23 00:50 | Consultation ---
DATE OF CONSULTATION: 04/22/2020 GI Consult Note REASON FOR CONSULT: Food regurgitation and intermittently persistent dysphagia more than two years. 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 He was brought in by his daughter because he regurgitated solid food couple of times since yesterday. He was able to eat his dinner without any problem. He ate steaks and some piece of bread. CT scan done on this admission showed some mural thickening at the GE junction. Radiologist recommended to perform upper endoscopy to rule out any occult mass. On reviewing the record, the patient has had last upper endoscopy by Dr. Badillo on 01/13/2019. At that time, distal esophagitis was noted, moderate-sized hiatal hernia, distal esophageal stricture was dilated with 54-Tog[place] Frank dilator. The patient otherwise denies any lower GI symptoms. GI is being consulted to evaluate for his upper abdominal symptoms. 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 PAST SURGICAL HISTORY: Inguinal hernia repair, carotid endarterectomy, cataract surgery with intraocular lens implant, some melanoma was excised. FAMILY HISTORY: Noncontributory, given his advanced age. SOCIAL HISTORY: No smoking, alcohol, or any illicit drug use. REVIEW OF SYSTEMS: Twelve point system reviewed, symptomatology is limited to GI system. ALLERGIES: DOXYCYCLINE. HOME MEDICATIONS: Acetaminophen, albuterol inhaler, atorvastatin, clopidogrel, famotidine, finasteride, loratadine, pantoprazole, salmeterol inhaler, and nifedipine. INPATIENT MEDICATION: Reviewed as per NOV. PHYSICAL EXAMINATION: VITAL SIGNS: Temperature 97.8, pulse 69, respirations 20, blood pressure 133/93, oxygen saturation 97% on room air. GENERAL: Elderly frail, not in any acute distress. HEENT: Oral mucosa is moist. Anicteric sclerae. CVS: S1, S2. Regular. LUNGS: Bilateral occasional scattered rhonchi. ABDOMEN: Soft, nondistended, and nontender. No palpable mass or hernia. Positive bowel sounds. EXTREMITIES: Warm. No leg edema. LABORATORY DATA: COVID-19 PCR test is negative. Sodium 140, potassium 4.8, chloride 108, bicarb 19, BUN 41 and creatinine 2.08, glucose 162. Liver enzymes normal. WBC 20.25, hemoglobin 14, hematocrit 43.8, MCV 99.8, platelet count 252. IMAGING: CT of the abdomen and pelvis without contrast showed, 1. Multiple distended proximal and mid small bowel loops with enteric contrast in colon. Findings are suggestive of ileus or low-grade partial small-bowel obstruction. 2. Small hiatal hernia with thickening of the GE junction. Recommend further evaluation with endoscopy to exclude underlying mass. 3. Diverticulosis coli. 4. Focal haziness of the anterior peritoneum. Developing omental infarct cannot be excluded. 5. Centrilobular and paraseptal emphysema. 6. Prostate hypertrophy. 7. Atherosclerosis. 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 No aneurysmal dilation. IMPRESSION: 1. Chronic intermittently persistent dysphagia with food regurgitation. This is most likely due to underlying hiatal hernia. I doubt the patient has any malignant esophageal stricture. The patient most likely has a Schatzki's ring. 2. Chest portion of the CT scan suggestive of possible underlying pneumonia. Therefore, the patient has been started on antibiotic. PLAN: Continue mechanical soft diet. Continue present medications. We will add pantoprazole into his current medication regimen. N.p.o. past midnight. Upper endoscopy tomorrow. Damien Ko MD SA/EKTA /[id number]
[2020-04-23 04:00] VITALS: BP 141/79
[2020-04-23 06:32] LABS: BASOPHILS % 0.3 % (0.0-1.0); EOSINOPHILS # (AUTO) 0.2 (0.0-0.4); EOSINOPHILS % 1.6 % (0.0-6.0); HEMATOCRIT 38.3 % (38.2-49.6); HEMOGLOBIN 12.4 g/dL (14.0-18.0); LYMPHOCYTES # (AUTO) 1.5 (1.0-3.2); LYMPHOCYTES % 14.2 % (18.0-39.1); MEAN CORPUSCULAR HEMOGLOBIN 32.2 pg (28-32); MEAN CORPUSCULAR HGB CONC 32.4 g/dL (31-35); MEAN CORPUSCULAR VOLUME 99.5 fL (81-99); MONOCYTES # (AUTO) 1.3 (0.2-0.8); MONOCYTES % 12.1 % (4.4-11.3); NEUTROPHILS # (AUTO) 7.5 (2.1-6.9); NEUTROPHILS % 71.2 % (38.7-80.0); PLATELET COUNT 185 x10e3/uL (140-360); RED BLOOD COUNT 3.85 x10e6/uL (4.3-5.7); RED CELL DISTRIBUTION WIDTH 13.5 % (11.7-14.4)
[2020-04-23 06:47] LABS: ALBUMIN 3.3 g/dL (3.5-5.0); ALBUMIN/GLOBULIN RATIO 1.2 (0.8-2.0); ANION GAP 13.2 mmol/L (8-16); CALCIUM 8.1 mg/dL (8.4-10.2); CREATININE, SERUM 1.55 mg/dL (0.72-1.25); POTASSIUM 4.2 mmol/L (3.5-5.1)
--- NOTE | 2020-04-23 07:00 | NUR ---
BEDSIDE SHIFT REPORT RECEIVED FROM THE REAMING MACHINE OPERATOR FOR PLASTIC RN. EDUCATED PT ABOUT FALL PRECAUTIONS. PT VERBALIZED UNDERSTANDING. CALL LIGHT WITH IN EASY REACH. BED IS LOW AND LOCKED. SIDE RAILS X2. ALL SAFETY MEASURES IN PLACE. PT IS ON NPO. PT DENIES NEEDS AT THIS TIME.
--- NOTE | 2020-04-23 07:37 | NUR ---
PT OFF UNIT FOR PROCEDURE IN SAFE CONDITION.
[2020-04-23 08:41] VITALS: BP 141/79
[2020-04-23] MEDS ORDERED: NIFEDIPINE CR 30 MG TAB PO SCH (09:00)
[2020-04-23] MEDS ORDERED: FINASTERIDE 5 MG TAB PO SCH (09:00)
[2020-04-23] MEDS ORDERED: SALMETEROL/FLUTICASONE 500/50 INH SCH (09:00)
[2020-04-23] MEDS ORDERED: PANTOPRAZOLE 40 MG 10ML VIAL IV SCH ×2 (09:00)
[2020-04-23 09:42] VITALS: BP 128/73
--- NOTE | 2020-04-23 10:30 | NUR ---
PT IS BACK TO THE UNIT. OKAY TO D/C PT PER DR. LOPES AND FOLLOW UP WITH DR. LOPES IN 2 WEEKS.
[2020-04-23 12:12] VITALS: BP 116/64
[2020-04-23] MEDS ORDERED: AZITHROMYCIN250 MG PO (13:06)
[2020-04-23] MEDS ORDERED: FLAGYL250 MG PO (13:07)
[2020-04-23] MEDS ORDERED: CARAFATE1 GM/10 ML PO (13:09)
--- NOTE | 2020-04-23 13:30 | NUR ---
PT DISCHARGED HOME SAFELY WITH FAMILY MEMBER. PT ESCORTED VIA WHEEL CHAIR TO THE PRIVATE AUTO AT THE FRONT ENTRANCE. TELE AND IV REMOVED. TIP INTACT. DRESSING APPLIED. RX GIVEN. DISCHARGE INSTRUCTIONS GIVEN AND PT VERBALIZED UNDERSTANDING. PT DENIED FURTHER NEEDS.
--- NOTE | 2020-04-23 13:37 | NUR ---
occupational health and safety manager visited with the patient and he was very happy to see chaplain betsy proivded pastoral conversation and prayer and the patient expressed hope and peace , as per patient he is going home soon chaplain Edin
--- NOTE | 2020-04-23 17:26 | NUR ---
Nutrition Screen Note RD Recommendation for Physician: -Continue current diet as ordered Plan of Care: RD following, monitoring for tolerance and adequacy Nutrition reason for involvement: Nutrition Risk Trigger Primary Diagnose(s):esophageal stricture, leukocytosis PMH: COPD, CVA, GERD, hiatal hernia, HLD Ht: 68 in Wt: 182lb BMI: 27.7 kg/m2 IBW:[address] Assessment: (04/23) Chart reviewed. Labs and meds reviewed. Pt is an 84 year old male admitted with esophageal stricture and leukocytosis. Pt reports a good appetite and is eating all of his meals. No weight loss reported and pt mentioned he usually weighs between 175-180 lbs. Pt currently a weight of 182 lbs in chart. Will continue to monitor Current Diet: cardiac Malnutrition Evaluation (04/23/20) The patient does not meet criteria for a specified degree of malnutrition at this time. Will re-evaluate at follow-up as appropriate. Diet Education Needs Assessment: Diet education not indicated. Nutrition Care Level: low Signed: Ema Villagomez, RD, LD
[2020-04-23] MEDS ORDERED: PROPOFOL IV EMULSION 10 MG/ML 20 ML VIAL ONE (21:35)
[2020-04-23] MEDS ORDERED: LIDOCAINE HCL 2% LOCAL INJ 5 ML SDV VIAL INJ ONE (21:35)
--- NOTE | 2020-04-23 23:55 | Discharge Summary ---
PRIMARY CARE PHYSICIAN: Dr. Jero Butterfield. WOOD STOCK BLANK HANDLER: Dr. Damien Ko. FINAL DIAGNOSES: 1. Dysphagia. The patient is status post EGD with finding of Schatzki ring, hiatal hernia, reflux esophagitis, and gastroesophageal reflux disease along with gastritis and acute gastric ulcer, status post biopsy. 2. Reactive leukocytosis, resolved. 3. Moderate hiatal hernia as mentioned above. SUMMARY: The patient is an 84-year-old male, who came in with epigastric discomfort. The patient came in because he was having problem with swallowing due to intermittent dysphagia associated with solid food. The patient was seen by Dr. Ko. The patient had previous EGD with dilatation done by Dr. Orion Badillo. The patient's last EGD was done on January 13, 2019. At that time, he had a distal esophageal stricture and that was dilated with a 54-[place] Frank dilator. The patient is doing much better now. He has leukocytosis when he presented to the hospital, but there is no sign of significant infection, possible early pneumonia due to the patient's COPD, but the patient did well. Leukocytosis completely resolved. Today with no left shift. WBC is 10.5 instead of 20. The patient is otherwise stable. Coronavirus PCR was negative. Chemistry panel, the patient was slightly dehydrated when he came in with BUN and creatinine of 41 and 2.08, now 32 and 1.55. The patient is eating well. No complication. The patient is otherwise stable. He is eager to go home and I agreed. He will go home today. I will give him empiric treatment, antibiotic, Flagyl 500 mg 3 times a day for 7 days, azithromycin 250 mg daily for 7 days, and then Carafate suspension 1 g before meals and at bedtime. The patient will resume his other usual home medication. Discussed with the patient at length. If he does have any problem, he can always return to the emergency room, but otherwise the patient is stable. He is ambulatory. He is eating. He is swallowing. No problem at this time. No pain. No chest pain. No shortness of breath. No abdominal pain. The patient will go home and follow up with Dr. Ko within a week. MD ANGEL Burgos/EKTA /[id number]
== END 2020-04-23 13:42 | disposition home or self-care (01) ==
LOC: ER 11:29 → INTOOBSV 13:23 → ERHOLD 13:23 → MED/SURG3 15:19
PROVIDERS: ADMIT Internal Medicine; ATTEND Internal Medicine
DX: K22.2 Esophageal obstruction (principal); K44.9 Diaphragmatic hernia without obstruction or gangrene; K57.90 Diverticulosis of intestine, part unspecified, without perforation or abscess without bleeding; K21.0 Gastro-esophageal reflux disease with esophagitis; K29.50 Unspecified chronic gastritis without bleeding; K25.3 Acute gastric ulcer without hemorrhage or perforation; E86.0 Dehydration; I10 Essential (primary) hypertension; J44.9 Chronic obstructive pulmonary disease, unspecified; Z86.73 Personal history of transient ischemic attack (TIA), and cerebral infarction without residual deficits; K21.9 Gastro-esophageal reflux disease without esophagitis; E78.5 Hyperlipidemia, unspecified; M19.90 Unspecified osteoarthritis, unspecified site; Z85.828 Personal history of other malignant neoplasm of skin; Z88.8 Allergy status to other drugs, medicaments and biological substances; N28.9 Disorder of kidney and ureter, unspecified; Z11.59 Encounter for screening for other viral diseases
CPT/HCPCS: 36415 ×2; 43239; 43248; 70450; 71250; 74176; 80053 ×2; 85025 ×2; 87040; 88305; 88312; 99284; C9113; G0378 ×2; J0456; J0696; J2001; J2543; J2704; J7030; U0002; 43450

== ENCOUNTER → 2021-03-17 | Day surgery (SDC) | payer OTHER ==
[2021-03-14 13:08] LABS: BASOPHILS % 0.2 % (0.0-1.0); EOSINOPHILS # (AUTO) 0.1 (0.0-0.4); EOSINOPHILS % 0.6 % (0.0-6.0); HEMATOCRIT 37.5 % (38.2-49.6); HEMOGLOBIN 12.1 g/dL (14.0-18.0); LYMPHOCYTES # (AUTO) 1.2 (1.0-3.2); LYMPHOCYTES % 12.5 % (18.0-39.1); MEAN CORPUSCULAR HEMOGLOBIN 31.7 pg (28-32); MEAN CORPUSCULAR HGB CONC 32.3 g/dL (31-35); MEAN CORPUSCULAR VOLUME 98.2 fL (81-99); MONOCYTES # (AUTO) 0.5 (0.2-0.8); MONOCYTES % 5.4 % (4.4-11.3); NEUTROPHILS # (AUTO) 7.8 (2.1-6.9); NEUTROPHILS % 80.5 % (38.7-80.0); PLATELET COUNT 214 x10e3/uL (140-360); RED BLOOD COUNT 3.82 x10e6/uL (4.3-5.7); RED CELL DISTRIBUTION WIDTH 14.6 % (11.7-14.4)
[2021-03-14 13:29] LABS: ALBUMIN 3.8 g/dL (3.5-5.0); ALBUMIN/GLOBULIN RATIO 1.4 (0.8-2.0); ANION GAP 15.5 mmol/L (8-16); CALCIUM 8.6 mg/dL (8.4-10.2); CREATININE, SERUM 2.34 mg/dL (0.72-1.25); POTASSIUM 4.5 mmol/L (3.5-5.1)
[2021-03-17] VITALS (8 sets, daily range): BP systolic 116–147; BP diastolic 61–81
[~2021-03-17] VITALS: Ht 172.7 cm; Wt 74.8 kg
[~2021-03-17] MED LIST changes: +ACETAMINOPHEN650 MG RC; +ALLERGY RELIEF180 MG PO; +AZITHROMYCIN250 MG PO; +CARAFATE1 GM/10 ML PO; +FENTANYL CITRATE/PF 100MCG/2 ML INJ ONE; +FINASTERIDE5 MG PO; +FLAGYL250 MG PO; +HEPARIN SOD/SOD CHLORIDE 2,000 ML ONE; +IOPAMIDOL 370 MG/ML 200 ML INFUS..BTL INJ ONE; +IPRAT-ALBUT 0.5-3 ML NEB; +LIDOCAINE HCL 2% LOCAL 20 ML VIAL ONE; +MEN'S 50 PLUS1 EACH PO; +MIDAZOLAM HCL 2 MG/2 ML VIAL ONE; +NIFEDIPINE ER30 M1 PO; +PANTOPRAZOLE SO40 MG PO; +SODIUM CHLORIDE 0.9% 1000ML 1,000 ML ONE; +TRELEGY ELLIPT1 EACH INH; +TYLENOL325 MG PO; +VITAMIN C1000 MG PO; +VITAMIN D3125 MCG PO
== END | disposition home or self-care (01) ==
LOC: CATH LAB 10:45
PROVIDERS: ATTEND Internal Medicine Interventional Cardiology
DX: I25.118 Atherosclerotic heart disease of native coronary artery with other forms of angina pectoris (principal); R94.39 Abnormal result of other cardiovascular function study; I77.1 Stricture of artery; I10 Essential (primary) hypertension; I44.7 Left bundle-branch block, unspecified; J44.9 Chronic obstructive pulmonary disease, unspecified; Z79.02 Long term (current) use of antithrombotics/antiplatelets
CPT/HCPCS: 36415; 76937; 80053; 85025; 93454; 99152; C1887; J2001; J2250; J3010; J7030; Q9967

== ENCOUNTER 2021-09-30 12:09 | Inpatient (IN) | payer OTHER ==
[~2021-09-30] VITALS: Ht 157.5 cm; Wt 73.9 kg
[~2021-09-30 12:09] MED LIST changes: -FENTANYL CITRATE/PF 100MCG/2 ML INJ ONE; -HEPARIN SOD/SOD CHLORIDE 2,000 ML ONE; -IOPAMIDOL 370 MG/ML 200 ML INFUS..BTL INJ ONE; -LIDOCAINE HCL 2% LOCAL 20 ML VIAL ONE; -MIDAZOLAM HCL 2 MG/2 ML VIAL ONE; -SODIUM CHLORIDE 0.9% 1000ML 1,000 ML ONE
[2021-09-30] MEDS ORDERED: SODIUM CHLORIDE 0.9% 1000ML 500 ML IV STA (12:21)
[2021-09-30 12:34] LABS: BASOPHILS % 0.1 % (0.0-1.0); EOSINOPHILS % 0.5 % (0.0-6.0); HEMATOCRIT 36.4 % (38.2-49.6); HEMOGLOBIN 11.6 g/dL (14.0-18.0); LYMPHOCYTES # (AUTO) 1.3 (1.0-3.2); LYMPHOCYTES % 17.5 % (18.0-39.1); MEAN CORPUSCULAR HEMOGLOBIN 31.4 pg (28-32); MEAN CORPUSCULAR HGB CONC 31.9 g/dL (31-35); MEAN CORPUSCULAR VOLUME 98.6 fL (81-99); MONOCYTES # (AUTO) 0.7 (0.2-0.8); MONOCYTES % 9.3 % (4.4-11.3); NEUTROPHILS # (AUTO) 5.5 (2.1-6.9); NEUTROPHILS % 71.8 % (38.7-80.0); PLATELET COUNT 215 x10e3/uL (140-360); RED BLOOD COUNT 3.69 x10e6/uL (4.3-5.7); RED CELL DISTRIBUTION WIDTH 14.9 % (11.7-14.4)
[2021-09-30] MEDS ORDERED: SODIUM CHLORIDE 0.9% 500ML 500 ML ONE (12:41)
[2021-09-30 12:43] LABS: INR 2.21; PARTIAL THROMBOPLASTIN TIME 37.2 seconds (23.8-35.5); PROTHROMBIN TIME 25.8 seconds (11.9-14.5)
[2021-09-30 12:52] LABS: ALBUMIN 3.6 g/dL (3.5-5.0); ALBUMIN/GLOBULIN RATIO 1.1 (0.8-2.0); ANION GAP 17.3 mmol/L (8-16); CALCIUM 9.1 mg/dL (8.4-10.2); CREATININE, SERUM 2.34 mg/dL (0.72-1.25); POTASSIUM 4.3 mmol/L (3.5-5.1)
[2021-09-30 12:59] LABS: CREATINE KINASE MB 3.1 ng/mL (0-5.0)
[2021-09-30] MEDS: CEFTRIAXONE 1 GM in SODIUM CHLORIDE 0.9% 50ML 50 ML IV SCH (14:09)
[2021-09-30 15:26] LABS: CLARITY,URINE SL CLOUDY (CLEAR); COLOR,URINE STRAW (YELLOW); LEUKOCYTE ESTERASE ,URINE NEGATIVE (NEGATIVE); NITRITE,URINE NEGATIVE (NEGATIVE); PROTEIN,URINE DIPSTICK NEGATIVE (NEGATIVE)
[2021-09-30 15:28] LABS: KETONES,URINE NEGATIVE (NEGATIVE); URINE UROBILINOGEN 0.2 mg/dL (0.2 - 1)
[2021-09-30 15:37] LABS: BACTERIA,URINE FEW /HPF; EPITHELIAL CELLS,URINE RARE /LPF; HYALINE CASTS 0-1 (0-1)
[2021-09-30 17:00] VITALS: BP 149/66
[2021-09-30] MEDS: SODIUM CHLORIDE 0.9% 1000ML 1,000 ML IV SCH ×2 (18:08→22:00)
[2021-09-30] MEDS ORDERED: ARICEPT5 MG PO (18:22)
[2021-09-30] MEDS ORDERED: FLONASE ALLERG9.9 ML INH (18:22)
[2021-09-30] MEDS ORDERED: XARELTO15 MG PO (18:22)
[2021-09-30] MEDS ORDERED: PREDNISONE10 MG PO (18:22)
[2021-09-30] MEDS ORDERED: LEVOFLOXACIN250 MG PO (18:22)
[2021-09-30] MEDS ORDERED: MACRODANTIN100 MG PO (18:22)
[2021-09-30] MEDS ORDERED: ADVAIR 100-501 EACH INH (18:22)
[2021-09-30] MEDS ORDERED: CALCIUM-MAGNES1 EAC8 PO (18:22)
[2021-09-30 20:00] VITALS: BP 130/73
[2021-09-30 20:28] LABS: CREATINE KINASE MB 2.9 ng/mL (0-5.0)
[2021-09-30 21:00] VITALS: BP 130/73
[2021-09-30] MEDS ORDERED: HYDRALAZINE HCL 20 MG/ML VIAL IV PRN (22:15)
[2021-09-30] MEDS ORDERED: ACETAMINOPHEN 325 MG TAB PO PRN (22:15)
[2021-09-30] MEDS ORDERED: ALBUTEROL/IPRATROPIUM 3 ML NEB NEB PRN (22:15)
[2021-09-30] MEDS ORDERED: ONDANSETRON HCL INJ 2MG/ML 2ML 2 MG/ML VIAL IV PRN (22:15)
[2021-10-01] VITALS: BP 162/90
[2021-10-01] MEDS: ALBUTEROL/IPRATROPIUM 3 ML NEB NEB SCH ×5 (00:23→23:01)
[2021-10-01 04:00] VITALS: BP_SYST 144; BP_SYST 171; BP_DIAS 67; BP_DIAS 76
[2021-10-01] MEDS: SODIUM CHLORIDE 0.9% 1000ML 1,000 ML IV SCH ×2 (05:27→18:12)
[2021-10-01 05:44] LABS: BASOPHILS % 0.3 % (0.0-1.0); EOSINOPHILS # (AUTO) 0.1 (0.0-0.4); EOSINOPHILS % 1.8 % (0.0-6.0); HEMATOCRIT 35.6 % (38.2-49.6); HEMOGLOBIN 11.2 g/dL (14.0-18.0); LYMPHOCYTES # (AUTO) 1.9 (1.0-3.2); MEAN CORPUSCULAR HEMOGLOBIN 31.5 pg (28-32); MEAN CORPUSCULAR HGB CONC 31.5 g/dL (31-35); MONOCYTES # (AUTO) 0.7 (0.2-0.8); MONOCYTES % 8.5 % (4.4-11.3); NEUTROPHILS # (AUTO) 5.1 (2.1-6.9); NEUTROPHILS % 64.6 % (38.7-80.0); PLATELET COUNT 182 x10e3/uL (140-360); RED BLOOD COUNT 3.56 x10e6/uL (4.3-5.7); RED CELL DISTRIBUTION WIDTH 14.6 % (11.7-14.4)
[2021-10-01 06:07] LABS: ANION GAP 14.1 mmol/L (8-16); CALCIUM 8.5 mg/dL (8.4-10.2); CREATININE, SERUM 1.59 mg/dL (0.72-1.25); POTASSIUM 4.1 mmol/L (3.5-5.1)
[2021-10-01 06:31] LABS: CREATINE KINASE MB 2.5 ng/mL (0-5.0)
[2021-10-01] MEDS ORDERED: CEFTRIAXONE 1 GM in SODIUM CHLORIDE 0.9% 50ML 50 ML IV SCH (09:00)
[2021-10-01] MEDS: PANTOPRAZOLE SOD 40 MG TABEC PO SCH ×2 (09:28→18:11)
[2021-10-01] MEDS: ASCORBIC ACID 500 MG TAB PO SCH (09:28)
[2021-10-01] MEDS: FINASTERIDE 5 MG TAB PO SCH (09:28)
[2021-10-01] MEDS: DONEPEZIL HCL 5 MG TAB PO SCH (09:30)
[2021-10-01] MEDS: NIFEDIPINE CR 30 MG TAB PO SCH (09:30)
[2021-10-01] MEDS: SALMETEROL/FLUTICASONE 100/50 INH SCH (10:44)
[2021-10-01] MEDS: MECLIZINE HCL 12.5 MG TAB PO SCH ×3 (11:45→21:54)
[2021-10-01] MEDS: METHYLPREDNISOLONE SOD SUCC 40 MG/ML VIAL 1ML IV SCH ×2 (11:45→21:06)
[2021-10-01] MEDS ORDERED: HYDRALAZINE HCL 25 MG TAB PO PRN (11:45)
[2021-10-01 11:47] VITALS: BP 147/56
[2021-10-01] MEDS: CEFTRIAXONE 1 GM in SODIUM CHLORIDE 0.9% 50ML 50 ML IV SCH (15:00)
[2021-10-01 15:53] VITALS: BP 137/57
[2021-10-01] MEDS: RIVAROXABAN 15 MG TABLET PO SCH (18:11)
[2021-10-01 20:00] VITALS: BP 139/59
[2021-10-01 21:00] VITALS: BP 139/59
[2021-10-01] MEDS: ATORVASTATIN 20 MG TAB PO SCH (21:06)
[2021-10-02] VITALS (8 sets, daily range): BP systolic 119–170; BP diastolic 51–85
[2021-10-02 05:46] LABS: BASOPHILS % 0.2 % (0.0-1.0); HEMOGLOBIN 11.6 g/dL (14.0-18.0); LYMPHOCYTES # (AUTO) 0.5 (1.0-3.2); LYMPHOCYTES % 7.7 % (18.0-39.1); MEAN CORPUSCULAR HEMOGLOBIN 31.5 pg (28-32); MEAN CORPUSCULAR HGB CONC 32.2 g/dL (31-35); MEAN CORPUSCULAR VOLUME 97.8 fL (81-99); MONOCYTES # (AUTO) 0.1 (0.2-0.8); MONOCYTES % 1.4 % (4.4-11.3); NEUTROPHILS # (AUTO) 5.2 (2.1-6.9); NEUTROPHILS % 89.8 % (38.7-80.0); PLATELET COUNT 183 x10e3/uL (140-360); RED BLOOD COUNT 3.68 x10e6/uL (4.3-5.7); RED CELL DISTRIBUTION WIDTH 14.6 % (11.7-14.4)
[2021-10-02] MEDS: SODIUM CHLORIDE 0.9% 1000ML 1,000 ML IV SCH (05:46)
[2021-10-02 06:20] LABS: ANION GAP 14.5 mmol/L (8-16); CALCIUM 9.1 mg/dL (8.4-10.2); CREATININE, SERUM 1.42 mg/dL (0.72-1.25); POTASSIUM 4.5 mmol/L (3.5-5.1)
[2021-10-02] MEDS: MECLIZINE HCL 12.5 MG TAB PO SCH ×3 (07:08→21:31)
[2021-10-02] MEDS: SALMETEROL/FLUTICASONE 100/50 INH SCH (08:25)
[2021-10-02] MEDS: ALBUTEROL/IPRATROPIUM 3 ML NEB NEB SCH ×3 (08:25→18:25)
[2021-10-02] MEDS: METHYLPREDNISOLONE SOD SUCC 40 MG/ML VIAL 1ML IV SCH (09:24)
[2021-10-02] MEDS: PANTOPRAZOLE SOD 40 MG TABEC PO SCH ×2 (09:24→17:24)
[2021-10-02] MEDS: DONEPEZIL HCL 5 MG TAB PO SCH (09:24)
[2021-10-02] MEDS: NIFEDIPINE CR 30 MG TAB PO SCH (09:24)
[2021-10-02] MEDS: ASCORBIC ACID 500 MG TAB PO SCH (09:25)
[2021-10-02] MEDS: FINASTERIDE 5 MG TAB PO SCH (09:25)
[2021-10-02] MEDS: CEFTRIAXONE 1 GM in SODIUM CHLORIDE 0.9% 50ML 50 ML IV SCH (15:00)
[2021-10-02] MEDS: RIVAROXABAN 15 MG TABLET PO SCH (17:24)
[2021-10-02] MEDS ORDERED: METHYLPREDNISOLONE SOD SUCC 40 MG/ML VIAL 1ML IV SCH (21:00)
[2021-10-02] MEDS: ATORVASTATIN 20 MG TAB PO SCH (21:30)
[2021-10-03] VITALS (8 sets, daily range): BP systolic 101–176; BP diastolic 61–89
[2021-10-03] MEDS: MECLIZINE HCL 12.5 MG TAB PO SCH ×3 (06:11→22:14)
[2021-10-03] MEDS: ALBUTEROL/IPRATROPIUM 3 ML NEB NEB SCH ×4 (07:13→18:50)
[2021-10-03] MEDS: SALMETEROL/FLUTICASONE 100/50 INH SCH (08:30)
[2021-10-03] MEDS ORDERED: ONDANSETRON HCL 4 MG ORAL DISINTEGRATING TAB PO PRN (08:45)
[2021-10-03] MEDS ORDERED: DOXYCYCLINE HYCLATE TABLET 100 MG TAB PO SCH (09:00)
[2021-10-03] MEDS: ASCORBIC ACID 500 MG TAB PO SCH (09:30)
[2021-10-03] MEDS: PANTOPRAZOLE SOD 40 MG TABEC PO SCH ×2 (09:30→16:07)
[2021-10-03] MEDS: DONEPEZIL HCL 5 MG TAB PO SCH (09:30)
[2021-10-03] MEDS: FINASTERIDE 5 MG TAB PO SCH (09:30)
[2021-10-03] MEDS: NIFEDIPINE CR 30 MG TAB PO SCH (09:30)
[2021-10-03] MEDS: PREDNISONE 10 MG TAB PO SCH (10:17)
[2021-10-03] MEDS: MEMANTINE 10 MG TAB PO SCH ×2 (10:17→16:07)
[2021-10-03] MEDS: RIVAROXABAN 15 MG TABLET PO SCH (16:07)
[2021-10-03] MEDS: ATORVASTATIN 20 MG TAB PO SCH (22:14)
[2021-10-04] VITALS (8 sets, daily range): BP systolic 96–146; BP diastolic 51–96
[2021-10-04 06:12] LABS: BASOPHILS % 0.4 % (0.0-1.0); EOSINOPHILS # (AUTO) 0.1 (0.0-0.4); HEMATOCRIT 37.6 % (38.2-49.6); HEMOGLOBIN 11.9 g/dL (14.0-18.0); LYMPHOCYTES # (AUTO) 2.2 (1.0-3.2); LYMPHOCYTES % 21.6 % (18.0-39.1); MEAN CORPUSCULAR HEMOGLOBIN 31.5 pg (28-32); MEAN CORPUSCULAR HGB CONC 31.6 g/dL (31-35); MEAN CORPUSCULAR VOLUME 99.5 fL (81-99); MONOCYTES # (AUTO) 0.7 (0.2-0.8); MONOCYTES % 7.1 % (4.4-11.3); NEUTROPHILS # (AUTO) 6.8 (2.1-6.9); NEUTROPHILS % 67.3 % (38.7-80.0); PLATELET COUNT 210 x10e3/uL (140-360); RED BLOOD COUNT 3.78 x10e6/uL (4.3-5.7); RED CELL DISTRIBUTION WIDTH 14.7 % (11.7-14.4)
[2021-10-04 06:26] LABS: ANION GAP 14.9 mmol/L (8-16); CALCIUM 9.2 mg/dL (8.4-10.2); CREATININE, SERUM 1.78 mg/dL (0.72-1.25); POTASSIUM 3.9 mmol/L (3.5-5.1)
[2021-10-04] MEDS: MECLIZINE HCL 12.5 MG TAB PO SCH ×3 (06:42→21:18)
[2021-10-04] MEDS: ALBUTEROL/IPRATROPIUM 3 ML NEB NEB SCH ×3 (07:10→18:50)
[2021-10-04] MEDS: SALMETEROL/FLUTICASONE 100/50 INH SCH (07:30)
[2021-10-04] MEDS: FINASTERIDE 5 MG TAB PO SCH (09:00)
[2021-10-04] MEDS: DONEPEZIL HCL 5 MG TAB PO SCH (09:00)
[2021-10-04] MEDS: PANTOPRAZOLE SOD 40 MG TABEC PO SCH ×2 (09:00→18:06)
[2021-10-04] MEDS: ASCORBIC ACID 500 MG TAB PO SCH (09:00)
[2021-10-04] MEDS: NIFEDIPINE CR 30 MG TAB PO SCH (09:00)
[2021-10-04] MEDS: PREDNISONE 10 MG TAB PO SCH (09:00)
[2021-10-04] MEDS: MEMANTINE 10 MG TAB PO SCH ×2 (09:00→18:06)
[2021-10-04] MEDS: RIVAROXABAN 15 MG TABLET PO SCH (18:06)
[2021-10-04] MEDS: ATORVASTATIN 20 MG TAB PO SCH (21:18)
[2021-10-05] VITALS: BP 116/70
[2021-10-05 04:00] VITALS: BP 166/80
[2021-10-05] MEDS: MECLIZINE HCL 12.5 MG TAB PO SCH ×2 (07:16→14:46)
[2021-10-05 07:47] VITALS: BP 145/86
[2021-10-05] MEDS: ALBUTEROL/IPRATROPIUM 3 ML NEB NEB SCH ×3 (07:49→13:47)
[2021-10-05] MEDS: SALMETEROL/FLUTICASONE 100/50 INH SCH (08:00)
[2021-10-05 09:00] VITALS: BP 145/86
[2021-10-05] MEDS: MEMANTINE 10 MG TAB PO SCH (09:57)
[2021-10-05] MEDS: DONEPEZIL HCL 5 MG TAB PO SCH (09:57)
[2021-10-05] MEDS: PANTOPRAZOLE SOD 40 MG TABEC PO SCH (09:58)
[2021-10-05] MEDS: NIFEDIPINE CR 30 MG TAB PO SCH (09:58)
[2021-10-05] MEDS: PREDNISONE 10 MG TAB PO SCH (09:58)
[2021-10-05] MEDS: FINASTERIDE 5 MG TAB PO SCH (09:58)
[2021-10-05] MEDS: ASCORBIC ACID 500 MG TAB PO SCH (09:58)
[2021-10-05 10:15] LABS: ANION GAP 13.7 mmol/L (8-16); CALCIUM 9.1 mg/dL (8.4-10.2); CREATININE, SERUM 1.76 mg/dL (0.72-1.25); POTASSIUM 3.7 mmol/L (3.5-5.1)
[2021-10-05 11:16] VITALS: BP 141/75
[2021-10-05] MEDS ORDERED: FUROSEMIDE INJ 10 MG/ML 4 ML VIAL IV SCH (11:45)
[2021-10-05] MEDS ORDERED: MEDROL4 MG/DOSE- PO (14:19)
[2021-10-05] MEDS ORDERED: FUROSEMIDE 40 MG TAB PO ONE (14:45)
[2021-10-05 15:39] VITALS: BP 103/57
== END 2021-10-05 16:14 | disposition home or self-care (01) | DRG 190 ==
LOC: ER 12:18 → ERHOLD 14:08 → MED/SURG2 17:08
PROVIDERS: ADMIT Internal Medicine; ATTEND Internal Medicine
DX: J44.0 Chronic obstructive pulmonary disease with (acute) lower respiratory infection (principal); J18.9 Pneumonia, unspecified organism; N17.0 Acute kidney failure with tubular necrosis; I13.0 Hypertensive heart and chronic kidney disease with heart failure and stage 1 through stage 4 chronic kidney disease, or unspecified chronic kidney disease; I50.22 Chronic systolic (congestive) heart failure; J44.1 Chronic obstructive pulmonary disease with (acute) exacerbation; F01.50 Vascular dementia, unspecified severity, without behavioral disturbance, psychotic disturbance, mood disturbance, and anxiety; I48.0 Paroxysmal atrial fibrillation; N40.0 Benign prostatic hyperplasia without lower urinary tract symptoms; E78.5 Hyperlipidemia, unspecified; N18.30 Chronic kidney disease, stage 3 unspecified; I69.398 Other sequelae of cerebral infarction; D63.1 Anemia in chronic kidney disease; Z20.822 Contact with and (suspected) exposure to COVID-19; Z95.0 Presence of cardiac pacemaker
CPT/HCPCS: 36415; 70450; 71045; 80048; 80053; 81001; 82550; 82553; 82948; 83880; 84484; 85025; 85610; 85730; 87086; 93005; 94640; 94799; 99284; J0360; J0456; J0696; J1940; J2920; J7030; J7040; J7050; J7512; U0002